=== PATIENT | male | born 1950 | race Caucasian/White ===

== ENCOUNTER 2016-12-06 16:15 | Emergency (ER) | payer MEDICARE ==
[2016-12-06] MEDS ORDERED: ASPIRIN 81 MG TABLET, CHEWABLE PO ONE (17:13)
--- NOTE | 2016-12-06 17:18 | ER Document Report ---
ED Medical Screen (RME) - General TRAVEL OUTSIDE OF THE [place] IN LAST 30 DAYS: No <ALYSE BATRES - Last Filed: 12/06/16 17:12> <JARRETT GUAJARDO - Last Filed: 12/06/16 19:21> - General Chief Complaint: Ankle Swelling Stated Complaint: FOOT SWELLING Time Seen by Provider: 12/06/16 17:07 Notes: Patient is a 66 year old male presenting to the emergency department for bilateral lower extremity edema. 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 Patient noticed his ankle edema on Friday. Patient was evaluated at the urgent care last night and told to come to the emergency department. Patient denies any personal history of CHF but states their is a family history of such on both sides. Patient has a history of bypass surgery in 2009. (ALYSE BATRES) - Related Data Allergies/Adverse Reactions: Penicillins Allergy (Verified 12/06/16 16:18) Past Medical History - Social History Chew tobacco use (# tins/day): No Frequency of alcohol use: None Drug Abuse: None - Past Medical History Cardiac Medical History: Reports: Hx Hypercholesterolemia, Hx Hypertension Renal/ Medical History: Denies: Hx Peritoneal Dialysis Past Surgical History: Reports: Hx Abdominal Surgery - hernia surg, Hx Cardiac Surgery - triple bypass 2009, Hx Tonsillectomy - age 3, Hx Urinary Tract Surgery - prostate surg <ALYSE BATRES - Last Filed: 12/06/16 17:12> Physical Exam <ALYSE BATRES - Last Filed: 12/06/16 17:12> <JARRETT GUAJARDO - Last Filed: 12/06/16 19:21> - Vital signs Vitals: Temp Pulse Resp BP Pulse Ox 98.2 F 74 16 163/73 H 96 12/06/16 16:18 12/06/16 16:18 12/06/16 16:18 12/06/16 16:18 12/06/16 16:18 - Notes Notes: GENERAL: Alert, interacts well. No acute distress. LUNGS: Clear to auscultation bilaterally, no wheezes, rales, or rhonchi. No respiratory distress. HEART: Regular rate and rhythm. No murmurs, gallops, or rubs. EXTREMITIES: Moves all 4 extremities spontaneously. Trace pitting edema at the right ankle, 2+ pitting edema at the left ankle, 1+ pitting edema above the right ankle. NEUROLOGICAL: Alert and oriented x3. Normal speech. (ALYSE BATRES) Course - Laboratory Result Diagrams: 12/06/16 17:35 12/06/16 17:35 <JARRETT GUAJARDO - Last Filed: 12/06/16 19:21> - Vital Signs Vital signs: Temp Pulse Resp BP Pulse Ox 98.2 F 74 16 163/73 H 96 12/06/16 16:18 12/06/16 16:18 12/06/16 16:18 12/06/16 16:18 12/06/16 16:18 - Laboratory Laboratory results interpreted by me: 12/06/16 12/06/16 17:35 17:35 Hgb 13.4 L Hct 37.8 L Sodium 129.7 L Chloride 90 L Glucose 156 H Doctor's Discharge <ALYSE BATRES - Last Filed: 12/06/16 17:12> <JARRETT GUAJARDO - Last Filed: 12/06/16 19:21> - Discharge Referrals: TOY SLAUGHTER MD [Primary Care Provider] - Follow up as needed Scribe Documentation - Scribe Written by Scribe:: Loretta Vogel 12/06/16 17:14 acting as scribe for :: Elvia <ALYSE BATRES - Last Filed: 12/06/16 17:12>
[2016-12-06 17:53] LABS: ABSOLUTE EOSINOPHILS # (AUTO) 0.3 10^3/uL (0.0-0.6); ABSOLUTE LYMPHOCYTES (AUTO) 1.4 10^3/uL (0.5-4.7); ABSOLUTE MONOCYTES (AUTO) 0.6 10^3/uL (0.1-1.4); ABSOLUTE NEUT (AUTO) 5.8 10^3/uL (1.7-8.2); BASOPHILS % (AUTO) 0.3 % (0-2); EOSINOPHILS % (AUTO) 3.4 % (0-6); HEMATOCRIT 37.8 % (37.9-51.0); HEMOGLOBIN 13.4 g/dL (13.5-17.0); HGB HCT DIFFERENCE 2.4; LYMPHOCYTES % (AUTO) 17.8 % (13-45); MEAN CORPUSCULAR HGB CONC 35.4 g/dL (32.0-36.0); MEAN CORPUSCULAR VOLUME 82 fl (80-97); MONOCYTES % (AUTO) 7.1 % (3-13); RED CELL DISTRIBUTION WIDTH 13.4 % (11.5-14.0); SEGMENTED NEUTROPHILS % (AUTO) 71.4 % (42-78); WHITE BLOOD COUNT 8.1 10^3/uL (4.0-10.5)
--- NOTE | 2016-12-06 18:00 | RADIOLOGY REPORT (SQ) ---
EXAM DESCRIPTION: CHEST SINGLE VIEW COMPLETED DATE/TIME: 12/06/2016 5:46 pm REASON FOR STUDY: leg swelling, r/o CHF COMPARISON: None. EXAM PARAMETERS: NUMBER OF VIEWS: One view. TECHNIQUE: Single frontal radiographic view of the chest acquired. RADIATION DOSE: NA LIMITATIONS: None. FINDINGS: LUNGS AND PLEURA: Chronic lung change without consolidation, masses or pneumothorax. No pl eural effusion. MEDIASTINUM AND HILAR STRUCTURES: No masses. Contour normal. HEART AND VASCULAR STRUCTURES: Heart normal in size. Normal vasculature. BONES: No acute findings. HARDWARE: Sternotomy wires. OTHER: No other significant finding. IMPRESSION: NO ACUTE RADIOGRAPHIC FINDING IN THE CHEST. TECHNICAL DOCUMENTATION: JOB ID: [id number]
[2016-12-06 18:05] LABS: PROTHROMBIN TIME 12.6 SEC (11.4-15.4)
[2016-12-06 18:08] LABS: ALANINE AMINOTRANSFERASE 26 U/L (21-72); ALBUMIN 4.7 g/dL (3.5-5.0); ALKALINE PHOSPHATASE 84 U/L (38-126); ANION GAP 13 (5-19); ASPARTATE AMINO TRANSFERASE 18 U/L (17-59); BILIRUBIN,DIRECT 0.3 mg/dL (0.0-0.4); BILIRUBIN,TOTAL 0.7 mg/dL (0.2-1.3); BLOOD UREA NITROGEN 10 mg/dL (7-20); CALCIUM 10.1 mg/dL (8.4-10.2); CARBON DIOXIDE 27 mmol/L (22-30); CHLORIDE 90 mmol/L (98-107); CREATINE KINASE 107 U/L (55-170); CREATININE RESULT 0.88 mg/dL (0.52-1.25); GLUCOSE 156 mg/dL (75-110); POTASSIUM 3.9 mmol/L (3.6-5.0); SODIUM 129.7 mmol/L (137-145); TOTAL PROTEIN 7.4 g/dL (6.3-8.2)
--- NOTE | 2016-12-06 18:13 | ER Document Report ---
ED General - General Chief Complaint: Ankle Swelling Stated Complaint: FOOT SWELLING Time Seen by Provider: 12/06/16 17:07 Mode of Arrival: Ambulatory Information source: Patient Notes: 66-year-old male presents with complaints of 3-4 day duration of bilateral ankle swelling. Patient denies any chest pain shortness breath difficulty breathing. Patient denies a history of congestive heart failure TRAVEL OUTSIDE OF THE [place] IN LAST 30 DAYS: No - HPI Onset: Last week Onset/Duration: Persistent Quality of pain: No pain Severity: Mild Pain Level: Denies Associated symptoms: Leg swelling Exacerbated by: Denies Relieved by: Denies Similar symptoms previously: No Recently seen / treated by doctor: No - Related Data Allergies/Adverse Reactions: Penicillins Allergy (Verified 12/06/16 16:18) Past Medical History - Social History Smoking Status: Never Smoker Cigarette use (# per day): No Chew tobacco use (# tins/day): No Smoking Education Provided: No Frequency of alcohol use: None Drug Abuse: None Family History: Reviewed & Not Pertinent Patient has suicidal ideation: No Patient has homicidal ideation: No - Past Medical History Cardiac Medical History: Reports: Hx Hypercholesterolemia, Hx Hypertension Renal/ Medical History: Denies: Hx Peritoneal Dialysis Past Surgical History: Reports: Hx Abdominal Surgery - hernia surg, Hx Cardiac Surgery - triple bypass 2010, Hx Tonsillectomy - age 3, Hx Urinary Tract Surgery - prostate surg Review of Systems - Review of Systems Notes: REVIEW OF SYSTEMS: CONSTITUTIONAL : Denies fever, chills, or sweats. Denies recent illness. EENT: Denies eye, ear, throat, or mouth pain or symptoms. Denies nasal or sinus congestion or discharge. Denies throat, tongue, or mouth swelling or difficulty swallowing. CARDIOVASCULAR: Bilateral upper extremity edema RESPIRATORY: Denies cough, cold, or chest congestion. Denies shortness of breath, difficulty breathing, or wheezing. GASTROINTESTINAL: Denies abdominal pain or distention. Denies nausea, vomiting , or diarrhea. Denies blood in vomitus, stools, or per rectum. Denies black, tarry stools. Denies constipation. GENITOURINARY: Denies difficulty urinating, painful urination, burning, frequency, blood in urine, or discharge. MUSCULOSKELETAL: Denies back or neck pain or stiffness. Denies joint pain or swelling. SKIN: Denies rash, lesions or sores. HEMATOLOGIC : Denies easy bruising or bleeding. LYMPHATIC: Denies swollen, enlarged glands. NEUROLOGICAL: Denies confusion or altered mental status. Denies passing out or loss of consciousness. Denies dizziness or lightheadedness. Denies headache. Denies weakness or paralysis or loss of use of either side. Denies problems with gait or speech. Denies sensory loss, numbness, or tingling. Denies seizures. PSYCHIATRIC: Denies anxiety or stress. Denies depression, suicidal ideation, or homicidal ideation. ALL OTHER SYSTEMS REVIEWED AND NEGATIVE. Dictation was performed using [employer] recognition software PHYSICAL EXAMINATION: GENERAL: Well-appearing, well-nourished and in no acute distress. HEAD: Atraumatic, normocephalic. EYES: Pupils equal round and reactive to light, extraocular movements intact, sclera anicteric, conjunctiva are normal. ENT: Nares patent, oropharynx clear without exudates. Moist mucous membranes. NECK: Normal range of motion, supple without lymphadenopathy LUNGS: Breath sounds clear to auscultation bilaterally and equal. No wheezes rales or rhonchi. HEART: Regular rate and rhythm without murmurs ABDOMEN: Soft, nontender, nondistended abdomen. No guarding, no rebound. No masses appreciated. Musculoskeletal: Bilateral pitting edema ankles +1 NEUROLOGICAL: Cranial nerves grossly intact. Normal speech, normal gait. Normal sensory, motor exams PSYCH: Normal mood, normal affect. SKIN: Warm, Dry, normal turgor, no rashes or lesions noted. Physical Exam - Vital signs Vitals: Temp Pulse Resp BP Pulse Ox 98.2 F 74 16 163/73 H 96 12/06/16 16:18 12/06/16 16:18 12/06/16 16:18 12/06/16 16:18 12/06/16 16:18 Course - Re-evaluation Re-evalutation: 12/06/16 18:27 Workup pending for possible congestive heart failure patient has bilateral edema very low concern for DVT 12/06/16 19:27 There is no sign of congestive heart failure, patient denies any DVT or PE risk factors. I will discharge with very close follow-up with his own primary care physician After performing a Medical Screening Examination, I estimate there is LOW risk for RUPTURED ESOPHAGUS, PNEUMOTHORAX, PULMONARY EMBOLISM, ACUTE CORONARY SYNDROME, OR THORACIC AORTIC DISSECTION, thus I consider the discharge disposition reasonable. I have reevaluated this patient multiple times and no significant life threatening changes are noted. The patient and I have discussed the diagnosis and risks, and we agree with discharging home with close follow-up. We also discussed returning to the Emergency Department immediately if new or worsening symptoms occur. We have discussed the symptoms which are most concerning (e.g., bloody sputum, worsening pain or shortness of breath) that necessitate immediate return. - Vital Signs Vital signs: Temp Pulse Resp BP Pulse Ox 98.2 F 74 16 163/73 H 96 12/06/16 16:18 12/06/16 16:18 12/06/16 16:18 12/06/16 16:18 12/06/16 16:18 - Laboratory Result Diagrams: 12/06/16 17:35 12/06/16 17:35 Laboratory results interpreted by me: 12/06/16 12/06/16 17:35 17:35 Hgb 13.4 L Hct 37.8 L Sodium 129.7 L Chloride 90 L Glucose 156 H - Diagnostic Test Radiology reviewed: Image reviewed, Reports reviewed Discharge - Discharge Clinical Impression: Ankle edema, bilateral Condition: Stable Disposition: HOME, SELF-CARE Instructions: Edema, Peripheral ([facility]) Referrals: TOY SLAUGHTER MD [Primary Care Provider] - Follow up tomorrow
[2016-12-06 18:20] LABS: CREATINE KINASE MB 3.51 ng/mL (<4.55)
[2016-12-06 18:27] LABS: TROPONIN I < 0.012 ng/mL
[2016-12-06 19:44] VITALS: BP 156/76
--- NOTE | 2016-12-07 00:01 | EKG REPORT ---
SEVERITY:- NORMAL ECG - SINUS RHYTHM LVH : Confirmed by: Prisicla Chung 07-Dec-2016 00:00:24
== END 2016-12-06 19:40 | disposition home or self-care (01) ==
LOC: ER 16:15
DX: R60.0 Localized edema (principal); I10 Essential (primary) hypertension; Z95.1 Presence of aortocoronary bypass graft; Z88.0 Allergy status to penicillin
CPT/HCPCS: 93005; 99284; 36415; 82553; 82550; 85025; 85610; 80053; 84484; 83880; 71010; 93010; A9270

== ENCOUNTER 2018-12-30 08:22 | Inpatient (IN) | payer MEDICARE ==
[2018-12-30 08:48] LABS: INTERNATIONAL RATION (INR) 1.09; PROTHROMBIN TIME 14.1 SEC (11.4-15.4)
[2018-12-30 08:52] LABS: HEMATOCRIT 35.5 % (37.9-51.0); HEMOGLOBIN 11.9 g/dL (13.5-17.0); MEAN CORPUSCULAR HEMOGLOBIN 28.1 pg (27.0-33.4); MEAN CORPUSCULAR HGB CONC 33.4 g/dL (32.0-36.0); MEAN CORPUSCULAR VOLUME 84 fl (80-97); PLATELET COUNT 212 10^3/uL (150-450); RED BLOOD COUNT 4.22 10^6/uL (4.35-5.55); RED CELL DISTRIBUTION WIDTH 14.2 % (11.5-14.0); WHITE BLOOD COUNT 12.9 10^3/uL (4.0-10.5)
[2018-12-30 09:00] LABS: VENOUS BLOOD BASE EXCESS -3.7 mmol/L; VENOUS BLOOD HCO3 21.7 mmol/L (20-32); VENOUS BLOOD PCO2 40.7 mmHg (35-63); VENOUS BLOOD PH 7.35 (7.30-7.42)
[2018-12-30 09:05] LABS: ALBUMIN 4.1 g/dL (3.5-5.0); ALKALINE PHOSPHATASE 76 U/L (38-126); ANION GAP 10 (5-19); ASPARTATE AMINO TRANSFERASE 61 U/L (17-59); BILIRUBIN,DIRECT 0.2 mg/dL (0.0-0.4); BLOOD UREA NITROGEN 15 mg/dL (7-20); CALCIUM 9.5 mg/dL (8.4-10.2); CARBON DIOXIDE 24 mmol/L (22-30); CHLORIDE 106 mmol/L (98-107); CREATINE KINASE 292 U/L (55-170); GLUCOSE 234 mg/dL (75-110); POTASSIUM 4.3 mmol/L (3.6-5.0)
--- NOTE | 2018-12-30 09:10 | RADIOLOGY REPORT (SQ) ---
EXAM DESCRIPTION: CHEST SINGLE VIEW COMPLETED DATE/TIME: 12/30/2018 8:56 am REASON FOR STUDY: sob COMPARISON: 12/06/2016 EXAM PARAMETERS: NUMBER OF VIEWS: One view. TECHNIQUE: Single frontal radiographic view of the chest acquired. RADIATION DOSE: NA LIMITATIONS: None. FINDINGS: LUNGS AND PLEURA: Chronic scarring or atelectasis in the left mid-lower lung zones. Slig ht stable bibasilar scarring or atelectasis on the right. No pneumothorax. No pleural effusion on t he right. The left costophrenic angle is partially obscured by overlying soft tissue density. MEDIASTINUM AND HILAR STRUCTURES: No masses. Contour normal. HEART AND VASCULAR STRUCTURES: Heart normal in size. Normal vasculature. BONES: The osseous structures are stable in appearance. HARDWARE: Prior anterior median sternotomy. OTHER: No other significant finding. IMPRESSION: 1. No significant interval changes since the prior examination dated 12/06/2016. Chronic mild changes in the lungs. TECHNICAL DOCUMENTATION: JOB ID: [id number] [employer]- All Rights Reserved Reading location - IP/workstation name: [email or web address]
[2018-12-30 09:18] LABS: CREATINE KINASE MB 3.92 ng/mL (<4.55)
[2018-12-30 09:20] LABS: TROPONIN I < 0.012 ng/mL
[2018-12-30 09:30] LABS: ABSOLUTE LYMPHOCYTES# (MANUAL) 0.8 10^3/uL (0.5-4.7); ABSOLUTE MONOCYTES # (MANUAL) 0.6 10^3/uL (0.1-1.4); BAND NEUTROPHILS % (MANUAL) 1 % (3-5); BASOPHILS % (MANUAL) 0 % (0-2); EOSINOPHILS % (MANUAL) 1 % (0-6); LYMPHOCYTES % (MANUAL) 6 % (13-45); MONOCYTES % (MANUAL) 5 % (3-13); NUCLEATED RED BLOOD CELLS 1 /100 WBC (0); PLATELET COMMENT ADEQUATE; RBC MORPHOLOGY COMMENT NORMO-CYTIC/CHROMIC; SEGMENTED NEUTROPHILS % (MAN) 87 % (42-78); TOTAL CELLS COUNTED 100
[2018-12-30] MEDS ORDERED: FUROSEMIDE INJ/PF 40 MG/4 ML SDV IV ONE (10:51)
[2018-12-30] MEDS ORDERED: ACETAMINOPHEN 325 MG TABLET PO ONE (10:53)
--- NOTE | 2018-12-30 11:41 | ER Document Report ---
ED General - General Chief Complaint: Breathing Difficulty Stated Complaint: TROUBLE BREATHING Time Seen by Provider: 12/30/18 08:41 Primary Care Provider: NIKOLE QUIROGA PA-C [Primary Care Provider] - Follow up as needed Mode of Arrival: Medic Information source: Patient TRAVEL OUTSIDE OF THE [place] IN LAST 30 DAYS: No - HPI Notes: Patient states that he was trying to work on his car this morning when he became very short of breath. Patient states it was severe and constant. It was worse with exertion and better with rest. There is no radiation symptoms. Patient is recently had a mild nonproductive cough. Patient denies fevers. Patient states he has no history of congestive heart failure. He states he did recently have pneumonia but he has finished antibiotics for this. He denies any pain. - Related Data Allergies/Adverse Reactions: Penicillins Allergy (Verified 12/30/18 08:32) Past Medical History - General Information source: Patient - Social History Smoking Status: Never Smoker Chew tobacco use (# tins/day): No Frequency of alcohol use: None Drug Abuse: None Family History: Reviewed & Not Pertinent Patient has suicidal ideation: No Patient has homicidal ideation: No - Past Medical History Cardiac Medical History: Reports: Hx Hypercholesterolemia, Hx Hypertension Renal/ Medical History: Denies: Hx Peritoneal Dialysis Past Surgical History: Reports: Hx Abdominal Surgery - hernia surg, Hx Cardiac Surgery - triple bypass 2009, Hx Tonsillectomy - age 3, Hx Urinary Tract Surgery - prostate surg Review of Systems - Review of Systems Constitutional: Malaise, Weakness Cardiovascular: denies: Chest pain, Palpitations Respiratory: Cough, Short of breath Gastrointestinal: denies: Diarrhea, Vomiting -: Yes All other systems reviewed and negative Physical Exam - Vital signs Vitals: Pulse Ox 99 12/30/18 08:27 Interpretation: Hypertensive, Tachycardic - General General appearance: Alert, Anxious In distress: Moderate - HEENT Head: Normocephalic, Atraumatic Eyes: Normal Pupils: PERRL - Respiratory Respiratory status: No respiratory distress Chest status: Nontender Breath sounds: Wheezing, Other - Crackles bilaterally Chest palpation: Normal - Cardiovascular Rhythm: Irregularly irregular, Tachycardia Heart sounds: Normal auscultation Murmur: No - Abdominal Inspection: Normal Distension: No distension Bowel sounds: Normal Tenderness: Nontender Organomegaly: No organomegaly - Back Back: Normal, Nontender - Extremities General upper extremity: Normal inspection, Nontender, Normal color, Normal ROM, Normal temperature General lower extremity: Normal inspection, Nontender, Normal color, Normal ROM, Normal temperature, Normal weight bearing. No: Klever's sign - Neurological Neuro grossly intact: Yes Cognition: Normal Orientation: AAOx4 [place] Coma Scale Eye Opening: Spontaneous [place] Coma Scale Verbal: Oriented [place] Coma Scale Motor: Obeys Commands [place] Coma Scale Total: 15 Speech: Normal Motor strength normal: LUE, RUE, LLE, RLE Sensory: Normal - Psychological Associated symptoms: Normal affect, Normal mood - Skin Skin Temperature: Warm Skin Moisture: Dry Skin Color: Normal Course - Re-evaluation Re-evalutation: 12/30/18 11:38 Patient reassessed just now. I gave patient a trial off of BiPAP and on nasal cannula. Patient became tachypneic and had some grunting respirations. His oxygen saturation remained about 94% but he was obviously labored. I have placed him back on BiPAP and patient looks much more comfortable. He has had a volumes of approximately 6-700. He continues to remain in atrial fibrillation but the rate is controlled. He does have apparent new onset CHF so treated with Lasix. His BNP is elevated for the first time on any lab values here. X-ray does not show infiltrate or edema. I did a rectal temperature which was 99.6. He does have an increased white blood cell count of 12,000 but I believe this is just due to the stress of being short of breath. I do not see evidence that he has an infectious process at this time. - Vital Signs Vital signs: Temp Pulse Resp BP Pulse Ox 99.6 F 21 H 161/82 H 96 12/30/18 11:30 12/30/18 11:01 12/30/18 11:01 12/30/18 11:01 - Laboratory Result Diagrams: 12/30/18 08:30 12/30/18 08:30 Laboratory results interpreted by me: 12/30/18 12/30/18 12/30/18 08:30 08:30 08:30 WBC 12.9 H RBC 4.22 L Hgb 11.9 L Hct 35.5 L RDW 14.2 H Seg Neuts % (Manual) 87 H Band Neutrophils % 1 L Lymphocytes % (Manual) 6 L Abs Neuts (Manual) 11.4 H Glucose 234 H AST 61 H Creatine Kinase 292 H NT-Pro-B Natriuret Pep 2840 H - Diagnostic Test Radiology reviewed: Image reviewed, Reports reviewed - EKG Interpretation by Me EKG shows normal: abnormal: Sinus rhythm Rate: Tachycardia Rhythm: A.Fib [place]/QRS: No: Right axis deviation, Left axis deviation Discharge - Discharge Clinical Impression: New onset of congestive heart failure Atrial fibrillation Qualifiers: Atrial fibrillation type: paroxysmal Qualified Code(s): I48.0 - Paroxysmal atrial fibrillation Condition: Fair Disposition: ADMITTED INPATIENT Admitting Provider: Nhan (Hospitalist) Unit Admitted: Telemetry Referrals: NIKOLE QUIROGA PA-C [Primary Care Provider] - Follow up as needed
[2018-12-30] MEDS ORDERED: IPRATROPIUM/ALBUTEROL 0.5-2.5 MG/3 ML AMPUL NEB PRN (11:59)
--- NOTE | 2018-12-30 12:16 | EKG REPORT ---
SEVERITY:- ABNORMAL ECG - ATRIAL FIBRILLATION, V-RATE 79-[address] CHANGES. [facility] : Confirmed by: Luis Ennis MD 30-Dec-2018 12:15:34
[2018-12-30] MEDS ORDERED: DILTIAZEM HCL INJ 25 MG/5 ML VIAL IV ONE (13:30)
[2018-12-30] MEDS: DILTIAZEM HCL/D5W 125 MG/125 ML RTUINJ IV PRN (13:51)
[2018-12-30] MEDS ORDERED: ALBUTEROL SULFATE 0.083% NEB 2.5 MG/3 ML AMPUL NEB PRN (16:12)
[2018-12-30] MEDS ORDERED: (PENDING PHARMACY ID) (Alendronate Sodium [Fosamax 70 Mg Tablet] 1 TAB) PO SCH (16:15)
--- NOTE | 2018-12-30 16:31 | PDOC H&P ---
History of Present Illness Admission Date/PCP: 12/30/18 12:06 NIKOLE QUIROGA PA-C Patient complains of: shortness of breath History of Present Illness: TOY KHAN is a 68 year old male who has history of coronary artery disease status post CABG in 2009. Patient presents the emergency room due to acute onset of progressive shortness of breath started about 4 to 5 days ago. Today, I believe he was trying to air the tires of his car when he felt severely short of breath and came to the emergency room. He also complains of cough and wheezing. He denies fever or chest pain. In the emergency room he was in rapid A. fib. His chest x-ray suspicious for left lower lobe pneumonia. He was given Lasix in the emergency room with some improvement. Past Medical History Cardiac Medical History: Reports: Hyperlipidema, Hypertension Past Surgical History Past Surgical History: Reports: Tonsillectomy - age 3 Social History Smoking Status: Never Smoker Frequency of Alcohol Use: None Hx Recreational Drug Use: No - Advance Directive Resuscitation Status: Full Code Family History Family History: Reviewed & Not Pertinent Parental Family History Reviewed: Yes Children Family History Reviewed: Yes Sibling(s) Family History Reviewed.: Yes Medication/Allergy Home Medications: Alendronate Sodium [Fosamax 70 mg Tablet] 1 tab PO .ONCE WEEKLY 12/30/18 Amlodipine Besylate [Norvasc 10 mg Tablet] 10 mg PO DAILY 12/30/18 Atorvastatin Calcium [Lipitor 40 mg Tablet] 40 mg PO DAILY 12/30/18 Losartan/Hydrochlorothiazide [Losartan-Hctz 100-25 mg Tab] 1 each PO DAILY 12/30/18 Allergies/Adverse Reactions: Penicillins Allergy (Verified 12/30/18 08:32) Review of Systems All systems: reviewed and no additional remarkable complaints except as stated Physical Exam Vital Signs: Temp Pulse Resp BP Pulse Ox 99.6 F 74 20 164/71 H 98 12/30/18 11:30 12/30/18 15:02 12/30/18 13:56 12/30/18 15:02 12/30/18 13:56 Intake & Output 12/29/18 12/30/18 12/31/18 06:59 06:59 06:59 Weight 200 lb Exam: Patient is no acute distress Alert oriented to time place person No anxiety or depression Head: atraumatic normocephalic Pupils: are equal reactive Neck: is supple and trachea is central no lymphadenopathy No pharyngeal erythema or exudates Heart: Rapid A. fib Lungs: Tachypnea, bilateral wheezing and rhonchi Abdomen: nontender nondistended Neurological exam: unremarkable Musculoskeletal: No joint swelling or effusion chronic lower back pain and tenderness No suicidal or homicidal ideation Results Laboratory Results: 12/30/18 08:30 12/30/18 08:30 12/30/18 12/30/18 12/30/18 08:30 08:30 08:30 WBC 12.9 H RBC 4.22 L Hgb 11.9 L Hct 35.5 L MCV 84 MCH 28.1 MCHC 33.4 RDW 14.2 H Plt Count 212 Seg Neutrophils % Not Reportable VBG pH 7.35 VBG pCO2 40.7 VBG HCO3 21.7 VBG Base Excess -3.7 Sodium 140.3 Potassium 4.3 Chloride 106 Carbon Dioxide 24 Anion Gap 10 BUN 15 Creatinine 1.17 Est GFR ( Amer) > 60 Glucose 234 H Lactic Acid Calcium 9.5 Total Bilirubin 1.0 AST 61 H Alkaline Phosphatase 76 Total Protein 7.0 Albumin 4.1 12/30/18 09:00 WBC RBC Hgb Hct MCV MCH MCHC RDW Plt Count Seg Neutrophils % VBG pH VBG pCO2 VBG HCO3 VBG Base Excess Sodium Potassium Chloride Carbon Dioxide Anion Gap BUN Creatinine Est GFR ( Amer) Glucose Lactic Acid 1.9 Calcium Total Bilirubin AST Alkaline Phosphatase Total Protein Albumin 12/30/18 12/30/18 12/30/18 08:30 08:30 08:30 Creatine Kinase 292 H CK-MB (CK-2) 3.92 Troponin I < 0.012 NT-Pro-B Natriuret Pep 2840 H 12/30/18 14:34 Creatine Kinase CK-MB (CK-2) Troponin I 0.021 NT-Pro-B Natriuret Pep Impressions: Chest X-Ray 12/30/18 08:42 IMPRESSION: 1. No significant interval changes since the prior examination dated 12/06/2016. Chronic mild changes in the lungs. Assessment and Plan - Diagnosis (1) Atrial fibrillation Qualifiers: Atrial fibrillation type: paroxysmal Qualified Code(s): I48.0 - Paroxysmal atrial fibrillation Is this a current diagnosis for this admission?: Yes Plan: Continue Cardizem drip. Consult cardiology. Check echocardiogram. Check magnesium and TSH. Check serial troponin. We will start heparin drip. [id number] (2) Pneumonia Is this a current diagnosis for this admission?: Yes Plan: Start IV ceftriaxone and azithromycin empirically. We will get a CT scan of the chest. Monitor cultures. Scheduled DuoNeb and albuterol as needed. (3) Coronary artery disease Is this a current diagnosis for this admission?: Yes Plan: Continue home medications (4) Hypertension Is this a current diagnosis for this admission?: Yes Plan: Continue home medications. Monitor blood pressure (5) Dyslipidemia Is this a current diagnosis for this admission?: Yes Plan: Continue statin treatment (6) History of prostate cancer Is this a current diagnosis for this admission?: Yes Plan: Status post prostatectomy 2008
[2018-12-30] MEDS ORDERED: HEPARIN SODIUM,PORCINE/D5W 25,000 UNIT/250 ML RTUINJ IV PRN (16:32)
[2018-12-30] MEDS ORDERED: HEPARIN SOD (PORCINE) 1,000 UNIT/ML 10 ML VIAL IV PRN (17:00)
[2018-12-30 17:01] LABS: ABSOLUTE EOSINOPHILS # (AUTO) 0.1 10^3/uL (0.0-0.6); ABSOLUTE LYMPHOCYTES (AUTO) 0.7 10^3/uL (0.5-4.7); ABSOLUTE MONOCYTES (AUTO) 0.8 10^3/uL (0.1-1.4); ABSOLUTE NEUT (AUTO) 8.6 10^3/uL (1.7-8.2); BASOPHILS % (AUTO) 0.3 % (0-2); EOSINOPHILS % (AUTO) 1.5 % (0-6); HEMATOCRIT 35.2 % (37.9-51.0); HEMOGLOBIN 11.8 g/dL (13.5-17.0); LYMPHOCYTES % (AUTO) 6.7 % (13-45); MEAN CORPUSCULAR HEMOGLOBIN 28.1 pg (27.0-33.4); MEAN CORPUSCULAR HGB CONC 33.6 g/dL (32.0-36.0); MEAN CORPUSCULAR VOLUME 84 fl (80-97); MONOCYTES % (AUTO) 7.4 % (3-13); PLATELET COUNT 210 10^3/uL (150-450); RED BLOOD COUNT 4.21 10^6/uL (4.35-5.55); RED CELL DISTRIBUTION WIDTH 14.5 % (11.5-14.0); SEGMENTED NEUTROPHILS % (AUTO) 84.1 % (42-78); TOTAL CELLS COUNTED % (AUTO) 100 %; WHITE BLOOD COUNT 10.2 10^3/uL (4.0-10.5)
--- NOTE | 2018-12-30 17:52 | RADIOLOGY REPORT (SQ) ---
EXAM DESCRIPTION: CT CHEST WITHOUT COMPLETED DATE/TIME: 12/30/2018 5:42 pm REASON FOR STUDY: pneumonia COMPARISON: Chest radiograph 12/30/2018 TECHNIQUE: CT scan performed of the chest without intravenous contrast. Images reviewed with lung, soft tissue and bone windows. Reconstructed coronal and sagittal MPR images reviewed. All images st ored on PACS. All CT scanners at this facility use dose modulation, iterative reconstruction, and/or weight based d osing when appropriate to reduce radiation dose to as low as reasonably achievable (ALARA). [facility]: Dose Right [facility]: CareDose [facility]: Dose Right [facility]: Teradose 4D [facility]: [employer] RADIATION DOSE: mGy. LIMITATIONS: No technical limitations. FINDINGS: LUNGS AND PLEURA: Minimal patchy opacities in the lungs left greater than right. No effus ions. No pneumothorax. HILAR AND MEDIASTINAL STRUCTURES: No identified masses or abnormal nodes. No obvious aneurysm. HEART AND VASCULAR STRUCTURES: No aneurysm. No pericardial effusion. UPPER ABDOMEN: No significant findings. Limited exam. THYROID AND OTHER SOFT TISSUES: No masses. No adenopathy. BONES: Sternal wires. HARDWARE: None in the chest. OTHER: No other significant findings. IMPRESSION: Minimal patchy pneumonitis. TECHNICAL DOCUMENTATION: JOB ID: [id number] Quality ID # [id number]: Final reports with documentation of one or more dose reduction techniques (e.g., Au tomated exposure control, adjustment of the mA and/or kV according to patient size, use of iterative reconstruction technique) 2010 [employer]- All Rights Reserved Reading location - IP/workstation name: [email or web address]
[2018-12-30 17:55] LABS: INTERNATIONAL RATION (INR) 1.17
[2018-12-30 17:56] LABS: PARTIAL THROMBOPLASTIN TIME 29.8 SEC (23.5-35.8)
[2018-12-30] MEDS: HEPARIN SODIUM,PORCINE/D5W 25,000 UNIT/250 ML RTUINJ IV PRN (18:07)
[2018-12-30] MEDS: HEPARIN SOD (PORCINE) 1,000 UNIT/ML 10 ML VIAL IV PRN (18:07)
[2018-12-30] MEDS: CEFTRIAXONE 1 GM/D5W RTU 1 GM/50 ML RTUPB IV SCH (18:10)
[2018-12-30] MEDS: IPRATROPIUM/ALBUTEROL 0.5-2.5 MG/3 ML AMPUL NEB SCH (20:14)
[2018-12-30] MEDS: AZITHROMYCIN 500 MG in DEXTROSE 5%-WATER 250 ML IV SCH (21:22)
[2018-12-30] MEDS: ACETAMINOPHEN 325 MG TABLET PO PRN (21:23)
[2018-12-30] MEDS: GUAIFENESIN 600 MG TABLET.SA PO SCH (21:23)
[2018-12-30] MEDS: ATORVASTATIN CALCIUM 40 MG TABLET PO SCH (21:23)
[2018-12-31] MEDS: HEPARIN SOD (PORCINE) 1,000 UNIT/ML 10 ML VIAL IV PRN (02:56)
[2018-12-31 05:13] LABS: HEMATOCRIT 32.5 % (37.9-51.0); MEAN CORPUSCULAR HEMOGLOBIN 28.6 pg (27.0-33.4); MEAN CORPUSCULAR HGB CONC 33.7 g/dL (32.0-36.0); MEAN CORPUSCULAR VOLUME 85 fl (80-97); PLATELET COUNT 180 10^3/uL (150-450); RED BLOOD COUNT 3.83 10^6/uL (4.35-5.55); RED CELL DISTRIBUTION WIDTH 14.6 % (11.5-14.0); WHITE BLOOD COUNT 7.4 10^3/uL (4.0-10.5)
[2018-12-31 05:38] LABS: ANION GAP 8 (5-19); BLOOD UREA NITROGEN 18 mg/dL (7-20); CALCIUM 9.1 mg/dL (8.4-10.2); CARBON DIOXIDE 26 mmol/L (22-30); CHLORIDE 104 mmol/L (98-107); GLUCOSE 124 mg/dL (75-110); POTASSIUM 4.1 mmol/L (3.6-5.0)
[2018-12-31] MEDS: DILTIAZEM HCL/D5W 125 MG/125 ML RTUINJ IV PRN (06:30)
[2018-12-31] MEDS: IPRATROPIUM/ALBUTEROL 0.5-2.5 MG/3 ML AMPUL NEB SCH ×4 (08:31→20:02)
[2018-12-31] MEDS: GUAIFENESIN 600 MG TABLET.SA PO SCH ×2 (09:18→21:44)
[2018-12-31] MEDS: AMLODIPINE BESYLATE 10 MG TABLET PO SCH (09:18)
[2018-12-31] MEDS: LOSARTAN POTASSIUM 50 MG TABLET PO SCH (09:18)
[2018-12-31] MEDS: HYDROCHLOROTHIAZIDE 25 MG TABLET PO SCH (09:18)
[2018-12-31 09:51] LABS: INTERNATIONAL RATION (INR) 1.17; PROTHROMBIN TIME 14.9 SEC (11.4-15.4)
[2018-12-31 09:52] LABS: PARTIAL THROMBOPLASTIN TIME 63.6 SEC (23.5-35.8)
[2018-12-31] MEDS ORDERED: AZITHROMYCIN INJ 500 MG VIAL IV SCH (10:00)
[2018-12-31] MEDS ORDERED: (PENDING PHARMACY ID) (Losartan/Hydrochlorothiazide [Losartan-Hctz 100-25 Mg Tab] 1 EACH) PO SCH (10:00)
[2018-12-31] MEDS: HEPARIN SODIUM,PORCINE/D5W 25,000 UNIT/250 ML RTUINJ IV PRN (12:44)
--- NOTE | 2018-12-31 12:54 | PDOC PROGRESS REPORT ---
Subjective Progress Note for:: 12/31/18 Subjective:: Patient was seen and examined. He is feeling better today. His oxygen requirements decreased to 2 L. He is afebrile and his white count normalized. CT scan shows pneumonitis which is minimal. Troponins are negative. He is on Cardizem drip still and has heart rate significantly improved. Reason For Visit: SHORTNESS OF BREATH Physical Exam Vital Signs: Temp Pulse Resp BP Pulse Ox 97.7 F 84 18 149/67 H 94 12/31/18 11:17 12/31/18 12:00 12/31/18 12:00 12/31/18 12:00 12/31/18 12:00 Intake & Output 12/30/18 12/31/18 01/01/19 06:59 06:59 06:59 Intake Total 580 426 Output Total 425 600 Balance 155 -174 Weight 208 lb 15.971 oz Exam: Patient is no acute distress Alert oriented to time place person No anxiety or depression Head: atraumatic normocephalic Pupils: are equal reactive Neck: is supple and trachea is central no lymphadenopathy No pharyngeal erythema or exudates Heart: A. fib Lungs: bilateral wheezing and rhonchi Abdomen: nontender nondistended Neurological exam: unremarkable Musculoskeletal: No joint swelling or effusion chronic lower back pain and tenderness No suicidal or homicidal ideation Results Laboratory Results: 12/31/18 04:37 12/31/18 04:37 12/30/18 12/30/18 12/30/18 16:41 16:41 16:41 WBC 10.2 RBC 4.21 L Hgb 11.8 L Hct 35.2 L MCV 84 MCH 28.1 MCHC 33.6 RDW 14.5 H Plt Count 210 Seg Neutrophils % 84.1 H Sodium Potassium Chloride Carbon Dioxide Anion Gap BUN Creatinine Est GFR ( Amer) Glucose Calcium Magnesium 1.9 TSH 4.74 H 12/31/18 12/31/18 04:37 04:37 WBC 7.4 RBC 3.83 L Hgb 11.0 L Hct 32.5 L MCV 85 MCH 28.6 MCHC 33.7 RDW 14.6 H Plt Count 180 Seg Neutrophils % Sodium 138.4 Potassium 4.1 Chloride 104 Carbon Dioxide 26 Anion Gap 8 BUN 18 Creatinine 1.19 Est GFR ( Amer) > 60 Glucose 124 H Calcium 9.1 Magnesium TSH 12/30/18 12/30/18 12/30/18 08:30 08:30 08:30 Creatine Kinase 292 H CK-MB (CK-2) 3.92 Troponin I < 0.012 NT-Pro-B Natriuret Pep 2840 H 12/30/18 12/30/18 12/30/18 14:34 20:41 23:44 Creatine Kinase CK-MB (CK-2) Troponin I 0.021 0.014 0.013 NT-Pro-B Natriuret Pep Impressions: Chest CT 12/30/18 00:00 IMPRESSION: Minimal patchy pneumonitis. Chest X-Ray 12/30/18 08:42 IMPRESSION: 1. No significant interval changes since the prior examination dated 12/06/2016. Chronic mild changes in the lungs. Assessment and Plan - Diagnosis (1) Atrial fibrillation Qualifiers: Atrial fibrillation type: paroxysmal Qualified Code(s): I48.0 - Paroxysmal atrial fibrillation Is this a current diagnosis for this admission?: Yes Plan: Continue Cardizem drip. Consulted cardiology. Follow-up echocardiogram. magnesium 1.9 and TSH 4.74. Negative serial troponin. Continue heparin drip for now. [id number] (2) Pneumonia Is this a current diagnosis for this admission?: Yes Plan: Continue IV ceftriaxone and azithromycin empirically. Reviewed CT scan of the chest. Monitor cultures. Continue scheduled DuoNeb and albuterol as needed. (3) Coronary artery disease Is this a current diagnosis for this admission?: Yes Plan: Continue home medications (4) Hypertension Is this a current diagnosis for this admission?: Yes Plan: Continue home medications. Monitor blood pressure (5) Dyslipidemia Is this a current diagnosis for this admission?: Yes Plan: Continue statin treatment (6) History of prostate cancer Is this a current diagnosis for this admission?: Yes Plan: Status post prostatectomy 2008
[2018-12-31] MEDS: PREDNISONE 20 MG TABLET PO SCH (13:26)
--- NOTE | 2018-12-31 15:25 | XCELERA REPORT ---
[address] [address] Transthoracic Echocardiogram Report Name: TOY KHAN Age: 68 yrs Gender: Male : 1950 Patient Status: Inpatient Patient Location: [address] [place], [place] [address] Study Date: 12/30/2018 07:00 PM Height: 73 in Weight: 200 lb BSA: 2.2 m2 Procedure: A two-dimensional transthoracic echocardiogram with color flow and Doppler was performed. The study was technically limited with all images being suboptimal in quality. Reason For Study: chf Ordering Physician: GURINDER GAY Performed By: Danica Don Interpretation Summary Note the study was repeated , as first study was sub-optimal. There is normal left ventricular wall thickness. LV EF is > thn 60% Left ventricular systolic function is normal. Doppler measurements suggest normal left ventricular diastolic function The left ventricular wall motion is normal. There is no thrombus. No ASSD ,VSD ,or PFO seen. The right ventricle is mild to moderately dilated. The right ventricle is not well visualized secondary to technical limitations The right atrium is mild to moderately dilated. The left atrium is moderately dilated. There is mild mitral annular calcification. There is no evidence of mitral valve prolapse. There is no vegetation seen on the mitral valve. There is no mitral valve stenosis. There is a moderate amount of mitral regurgitation There is no aortic valvular vegetation. There is no aortic valve stenosis There is aortic sclerosis without aortic stenosis. There is no LVOT obstruction. There is a mild amount of aortic regurgitation There is no tricuspid stenosis. There is moderate to severe pulmonary hypertension by echo RVSP is 57 to 62 mm of Hg , with RA mean of 15 to 20. There is no pulmonic valvular stenosis. There is a trace amount of pulmonic regurgitation The aortic root is normal size. The inferior vena cava appeared dilated and decreased < 50% with respiration (RAP 15-20 mmHg) There is no pericardial effusion. Note the study was repeated , as first study was sub-optimal. MMode/2D Measurements & Calculations RVDd: 4.2 cm LVIDd: 5.1 cm FS: 35.1 % Ao root diam: 2.9 cm IVSd: 1.1 cm LVIDs: 3.3 cm EDV(Teich): 124.4 ml Ao root area: 6.5 cm2 LVPWd: 1.1 cm ESV(Teich): 44.7 ml LA dimension: 4.2 cm EF(Teich): 64.1 % Doppler Measurements & Calculations MV E max macy: MV P1/2t max macy: Ao V2 max: AI max macy: 119.0 cm/sec 135.2 cm/sec 157.8 cm/sec 313.3 cm/sec MV A max macy: MV P1/2t: 68.0 msec Ao max PG: AI max P.5 cm/sec MVA(P1/2t): 3.2 cm2 10.0 mmHg 39.7 mmHg MV E/A: 2.1 MV dec slope: AI dec slope: 191.2 cm/sec2 582.0 cm/sec2 AI P1/2t: MV dec time: 479.8 msec 0.19 sec LV V1 max PG: PA V2 max: PI end-d macy: TR max macy: 3.9 mmHg 111.9 cm/sec 119.4 cm/sec 276.9 cm/sec LV V1 max: PA max P.1 mmHg TR max P.0 cm/sec 30.7 mmHg AV P1/2t-pr_phl: MV P1/2t-pr_phl: 479.1 msec 45.3 msec Left Ventricle The left ventricle is normal in size. There is normal left ventricular wall thickness. LV EF is > thn 60%. Left ventricular systolic function is normal. Doppler measurements suggest normal left ventricular diastolic function. The left ventricular wall motion is normal. There is no thrombus. No ASSD ,VSD ,or PFO seen. Right Ventricle The right ventricle is mild to moderately dilated. The right ventricle is not well visualized secondary to technical limitations. Atria The right atrium is mild to moderately dilated. The left atrium is moderately dilated. Mitral Valve There is mild mitral annular calcification. There is no evidence of mitral valve prolapse. There is no vegetation seen on the mitral valve. There is no mitral valve stenosis. There is a moderate amount of mitral regurgitation. Aortic Valve There is no aortic valvular vegetation. There is no aortic valve stenosis. There is aortic sclerosis without aortic stenosis. There is no LVOT obstruction. There is a mild amount of aortic regurgitation. Tricuspid Valve There is no tricuspid stenosis. There is a mild to moderate amount of tricuspid regurgitation. There is moderate to severe pulmonary hypertension by echo. RVSP is 57 to 62 mm of Hg , with RA mean of 15 to 20. Pulmonic Valve There is no pulmonic valvular stenosis. There is a trace amount of pulmonic regurgitation. Great Vessels The aortic root is normal size. The inferior vena cava appeared dilated and decreased < 50% with respiration (RAP 15-20 mmHg). Effusions There is no pericardial effusion. : GURINDER GAY Lakshmi
[2018-12-31] MEDS: ACETAMINOPHEN 325 MG TABLET PO PRN (15:26)
[2018-12-31] MEDS: CEFTRIAXONE 1 GM/D5W RTU 1 GM/50 ML RTUPB IV SCH (17:11)
--- NOTE | 2018-12-31 20:48 | PDOC CONSULTATION ---
Consultation-Blank Consultation: CARDIOLOGY CONSULTATION by Dr. Mandy Olmos patient seen at 4 :30 PM. 60 minutes spent on this patient with more than 50% time spent in direct patient care. REASON FOR CONSULTATION: Patient with history of coronary artery disease coronary, history of coronary bypass graft surgery admitted with atrial fibrill ation with rapid ventricular response. For cardiac management. CONSULT REQUESTING PHYSICIAN: Dr. Carlos zuni hospitalist physician group. 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 He has a 4 to 5 days prior to admission history of cough productive of yellow sputum with wheezing and shortness of breath and rapid palpitations. He denies any PND orthopnea and no anginal symptoms. In the emergency room he was found to be in atrial fibrillation with rapid ventricular response, and also had patchy pneumonitis bilaterally. He was started on full dose IV heparin infusion and IV Cardizem drip. At present the patient still in atrial fibrillation but with a controlled ventricular response. The patient recollects that after his coronary bypass graft surgery in 2009 he had a postoperative the atrial fibrillation for a few months. Subsequently that resolved and he has not had any clinical recurrence of atrial fibrillation. The patient denies any syncope. The patient has no history of ID or anginal symptoms. At present the patient states he feels slightly better but he continued to wheeze. He is able to lie down flat in bed. The monitor shows no ventricular arrhythmias. PAST MEDICAL HISTORY: History of coronary artery disease. No prior history of ID, but states he had three-vessel bypass in [facility] in 2009. He has history of hyperlipidemia. 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 He has no history of sleep apnea. He has no history of diabetes mellitus. This is the second occurrence of atrial fibrillation in this patient. He has no history of TIA CVA.. He has no history of headaches migraines or seizures. No history of anxiety or depression. No history of diabetes mellitus or thyroid disease. No history of chronic kidney disease. PAST SURGICAL HISTORY: History of coronary bypass graft surgery in 2009. History of tonsillectomy. FAMILY HISTORY: Is positive coronary artery disease and hypertension. SOCIAL HISTORY: The patient has never smoked he has no history of EtOH abuse. There is no history of street drug abuse. RESUSCITATION STATUS: The patient is a full code. His is his surrogate healthcare decision maker. REVIEW SYSTEMS:: Constitutional denies any fever chills or rigors. HEAD: Denies headaches or head injury. EYES: No history of amblyopia diplopia. No history of amaurosis fugax. EARS: No history of tinnitus. No history of hearing loss. No history of vertigo. NOSE: No history of nosebleeds. No history of nasal polyps. No history of hayfever. MOUTH: No history of altered taste sensation. No history of ulcers in the mouth. THROAT: No history of odynophagia or dysphagia. No recurrent sore throats. SKIN: No history of psoriasis or skin cancer. No history of pruritus. No history of yellowish discoloration of the skin. NECK: No history of neck pain. No history of neck swelling. No goiter. 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 No history of sleep apnea. Recent symptoms of acute exacerbation of COPD but chest x-ray shows an CT scan without contrast shows bilateral patchy pneumonitis. He has no history of sleep apnea. No history of pulmonary embolism. No history of hemoptysis. No history of pleuritic chest pain. HEART: This is a second episode of atrial fibrillation. History of palpitations present. No history of PND orthopnea or leg edema. No history of prior congestive heart failure. History of coronary artery disease, denies past history of ID. History of coronary bypass graft surgery, and no anginal symptoms after his CABG. History of hypertension present. History of hyperlipidemia present. There is no history of syncope. ENDOCRINE: No history of diabetes mellitus or thyroid disease. No history of obesity. METABOLIC: History of hyperlipidemia present. No history of gout. No history of obesity. RENAL: No history of chronic kidney disease. No symptoms of enlarged prostate. No history of hematuria pyuria or dysuria. MUSCULOSKELETAL: Denies arthritis or collagen vascular disease. GI: No history of GI bleed. No history of peptic ulcer disease. No history of fatty food intolerance. No history of jaundice. No history of altered bowel movements. No history of GI bleed. MANAGER ADULT: No history of TIA or CVA. No history of headaches migraines or seizures. No gait imbalance. PSYCHIATRIC: No history of anxiety or depression. No history of suicidal ideation. No history of homicidal ideation. VASCULAR: No history of DVT. No history of calf or buttock claudication. HEMATOLOGICAL: No history of bleeding diathesis. No history of clotting disorders. No history of anemia. Current Medications Acetaminophen (Tylenol 325 Mg Tablet) 650 mg PO Q6HP PRN PRN Reason: HEADACHE Stop: 01/29/19 20:24 Last Admin: 12/31/18 15:26 Dose: 650 mg Documented by: Albuterol (Ventolin 0.083% Neb 2.5 Mg/3 Ml Ampul) 2.5 mg NEB RTQ2HP PRN PRN Reason: SHORTNESS OF BREATH Stop: 01/29/19 16:11 Albuterol/Ipratropium (Duoneb 3 Ml Ampul) 3 ml NEB RTQ4HP PRN PRN Reason: SHORTNESS OF BREATH Stop: 01/29/19 11:58 Albuterol/Ipratropium (Duoneb 3 Ml Ampul) 3 ml NEB [id number] YANNI Stop: 01/29/19 19:59 Last Admin: 12/31/18 20:02 Dose: 3 ml Documented by: Alendronate Sodium (Fosamax "Weekly" 35 Mg Tablet) 70 mg PO Q7D@1000 [facility] Stop: 02/05/19 09:59 Amlodipine Besylate (Norvasc 10 Mg Tablet) 10 mg PO DAILY YANNI Stop: 01/30/19 09:59 Last Admin: 12/31/18 09:18 Dose: 10 mg Documented by: Atorvastatin Calcium (Lipitor 40 Mg Tablet) 40 mg PO QHS YANNI Stop: 01/29/19 21:59 Last Admin: 12/31/18 21:44 Dose: 40 mg Documented by: Guaifenesin (Mucinex Sr 600 Mg Tablet.Sa) 600 mg PO Q12 YANNI Stop: 01/29/19 21:59 Last Admin: 12/31/18 21:44 Dose: 600 mg Documented by: Heparin Sodium (Porcine) (Heparin Inj 1,000 Unit/Ml 10 Ml Vial) 0 - 12,000 unit IV .BOLUS PER PROTOCOL PRN; Protocol PRN Reason: RESPOND TO aPTT VALUES Stop: 01/29/19 17:29 Last Admin: 12/31/18 02:56 Dose: 2,700 units Documented by: Hydrochlorothiazide (Hydrodiuril 25 Mg Tablet) 25 mg PO DAILY YANNI Stop: 01/30/19 09:59 Last Admin: 12/31/18 09:18 Dose: 25 mg Documented by: Diltiazem HCl (Cardizem Rtu Inj 125 Mg-D5w 125 Ml Premix) 125 mg in 125 mls @ 0 mls/hr IV CONTINUOUS PRN; Protocol PRN Reason: THIS MED IS NOT "PRN" Stop: 01/29/19 13:31 Last Admin: 12/31/18 06:30 Dose: 5 mg/hr, 5 mls/hr Documented by: Ceftriaxone Sodium/Dextrose (Rocephin Rtu 1 Gm/D5w 50 Ml Premix) 1 gm in 50 mls @ 100 mls/hr IV QPM [facility] Stop: 01/06/19 17:59 Last Infusion: 12/31/18 17:41 Dose: Infused Documented by: Azithromycin 500 mg/ Dextrose 250 mls @ 250 mls/hr IV QHS YANNI Stop: 01/06/19 21:59 Last Admin: 12/31/18 21:42 Dose: 250 ml/hr, 250 mls/hr Documented by: Heparin Sodium/Dextrose (Heparin Rtu 25,000 Unit/250 Ml D5w Premix) 25,000 unit in 250 mls @ 0 mls/hr IV CONTINUOUS PRN; Protocol PRN Reason: THIS MED IS NOT "PRN" Stop: 01/29/19 17:29 Last Admin: 12/31/18 12:44 Dose: 12.69 ml/hr, 12.69 mls/hr Documented by: Losartan Potassium (Cozaar 50 Mg Tablet) 100 mg PO DAILY [facility] Stop: 01/30/19 09:59 Last Admin: 12/31/18 09:18 Dose: 100 mg Documented by: Prednisone (Deltasone 20 Mg Tablet) 20 mg PO DAILY [facility] Stop: 01/30/19 13:29 Last Admin: 12/31/18 13:26 Dose: 20 mg Documented by: Discontinued Medications Acetaminophen (Tylenol 325 Mg Tablet) 975 mg PO NOW ONE Stop: 12/30/18 10:54 Last Admin: 12/30/18 11:47 Dose: 975 mg Documented by: Diltiazem HCl (Cardizem Inj 25 Mg/5 Ml Vial) 20 mg IV NOW ONE Stop: 12/30/18 13:31 Last Admin: 12/30/18 13:40 Dose: 20 mg Documented by: Furosemide (Lasix Inj/Pf 40 Mg/4 Ml Sdv) 40 mg IV NOW ONE Stop: 12/30/18 10:52 Last Admin: 12/30/18 11:50 Dose: 40 mg Documented by: Heparin Sodium (Porcine) (Heparin Inj 1,000 Unit/Ml 10 Ml Vial) 0 - 15,000 unit IV .BOLUS PER PROTOCOL PRN; Protocol PRN Reason: RESPOND TO aPTT VALUES Stop: 01/29/19 16:59 Heparin Sodium/Dextrose (Heparin Rtu 25,000 Unit/250 Ml D5w Premix) 25,000 unit in 250 mls @ 0 mls/hr IV CONTINUOUS PRN; Protocol PRN Reason: THIS MED IS NOT "PRN" Stop: 01/29/19 16:31 PHYSICAL EXAMINATION: The patient is well-built and well-nourished. In mild respiratory distress. Selected Entries 12/31/18 16:42 Temperature 98.1 F Temperature Oral Source Pulse Rate 84 Respiratory 18 Rate Blood Pressure 152/63 H Blood Pressure 92 Mean BP Location Left Arm BP Position Sitting O2 Sat by Pulse 96 Oximetry Oxygen Flow 2.00 Rate Oxygen Delivery Nasal Cannula Method head: Is atraumatic normocephalic. EYES: Pupils equal round regular reactive to light accommodation. Extraocular movements are normal. There is no conjunctival pallor. There is no scleral icterus. EARS: Tympanic membranes are intact. External auditory canals are clear. NOSE: There is no deviated nasal septum. There is no inflammation of these mucous membranes. MOUTH: Mucous membranes of mouth are moist. Tongue are moist. There is no ulcers. There is no bleeding from the gums. THROAT: There is no redness of the oropharynx. There is no exudates. SKIN: There is no skin rashes. There is no skin lesions. There is no particular ecchymosis. NECK: Is supple there is no JVD. Carotids are equal there is no bruit there is no lymphadenopathy. There is no goiter. There is no accessory muscle respiration use. Trachea central. LUNGS: Shows diminished air entry prolonged expiration. There is scattered rhonchi and bilateral wheezing. No rales of CHF. There are few dry crackles bilaterally of pneumonia. On percussion there is hyperresonance. There is no areas of dullness.. On palpation there is no chest wall tenderness. HEART: S1-S2 is heard. There is no S3 gallop. There is no S4 gallop. S1 is of variable intensity. There is murmur of tricuspid regurgitation, and mild mitral regurgitation present. There is murmur of aortic sclerosis. No aortic stenosis murmur heard. Unable to appreciate aortic regurgitation murmur. There is no S3 gallop. There is no S4 gallop. There is no rub. ABDOMEN: Is soft. Nontender. There is no hepatospleno megaly. Bowel sounds well heard. EXTREMITIES: Femorals are diminished. There is no femoral bruits. Leg pulses are well felt. There is no pedal edema. There is no DVT escalators. There is no cyanosis or clubbing. There is no calf tenderness. MANAGER ADULT: The patient is conscious awake alert oriented x3 with no focal deficits. PSYCHIATRIC: The patient judgment insight are intact his affect is normal. Labs- Entire Visit 12/30/18 12/30/18 12/30/18 08:30 08:30 08:30 WBC 12.9 H RBC 4.22 L Hgb 11.9 L Hct 35.5 L MCV 84 MCH 28.1 MCHC 33.4 RDW 14.2 H Plt Count 212 Lymph % (Auto) Not Reportable [place] % (Auto) Not Reportable Eos % (Auto) Not Reportable Baso % (Auto) Not Reportable Absolute Neuts (auto) Not Reportable Absolute Lymphs (auto) Not Reportable Absolute Monos (auto) Not Reportable Absolute Eos (auto) Not Reportable Absolute Basos (auto) Not Reportable Total Counted 100 Seg Neutrophils % Not Reportable Seg Neuts % (Manual) 87 H Band Neutrophils % 1 L Lymphocytes % (Manual) 6 L Monocytes % (Manual) 5 Eosinophils % (Manual) 1 Basophils % (Manual) 0 Abs Neuts (Manual) 11.4 H Abs Lymphs (Manual) 0.8 Abs Monocytes (Manual) 0.6 Absolute Eos (Manual) 0.1 Abs Basophils (Manual) 0.0 Nucleated RBCs 1 Platelet Comment ADEQUATE RBC Morph Comment NORMO-CYTIC/CHROMIC PT 14.1 INR 1.09 INR (Anticoag Therapy) APTT VBG pH VBG pCO2 VBG HCO3 VBG Base Excess Sodium 140.3 Potassium 4.3 Chloride 106 Carbon Dioxide 24 Anion Gap 10 BUN 15 Creatinine 1.17 Est GFR ( Amer) > 60 Est GFR (MDRD) Non-Af > 60 Glucose 234 H Lactic Acid Calcium 9.5 Magnesium Total Bilirubin 1.0 Direct Bilirubin 0.2 Neonat Total Bilirubin Not Reportable Neonat Direct Bilirubin Not Reportable Neonat Indirect Bili Not Reportable AST 61 H ALT 65 Alkaline Phosphatase 76 Creatine Kinase 292 H CK-MB (CK-2) Troponin I NT-Pro-B Natriuret Pep Total Protein 7.0 Albumin 4.1 [facility] 12/30/18 12/30/18 12/30/18 08:30 08:30 08:30 WBC RBC Hgb Hct MCV MCH MCHC RDW Plt Count Lymph % (Auto) [place] % (Auto) Eos % (Auto) Baso % (Auto) Absolute Neuts (auto) Absolute Lymphs (auto) Absolute Monos (auto) Absolute Eos (auto) Absolute Basos (auto) Total Counted Seg Neutrophils % Seg Neuts % (Manual) Band Neutrophils % Lymphocytes % (Manual) Monocytes % (Manual) Eosinophils % (Manual) Basophils % (Manual) Abs Neuts (Manual) Abs Lymphs (Manual) Abs Monocytes (Manual) Absolute Eos (Manual) Abs Basophils (Manual) Nucleated RBCs Platelet Comment RBC Morph Comment PT Cancelled INR Cancelled INR (Anticoag Therapy) Cancelled APTT VBG pH VBG pCO2 VBG HCO3 VBG Base Excess Sodium Potassium Chloride Carbon Dioxide Anion Gap BUN Creatinine Est GFR ( Amer) Est GFR (MDRD) Non-Af Glucose Lactic Acid Calcium Magnesium Total Bilirubin Direct Bilirubin Neonat Total Bilirubin Neonat Direct Bilirubin Neonat Indirect Bili AST ALT Alkaline Phosphatase Creatine Kinase CK-MB (CK-2) 3.92 Troponin I < 0.012 NT-Pro-B Natriuret Pep 2840 H Total Protein Albumin [facility] 12/30/18 12/30/18 12/30/18 08:30 09:00 14:34 WBC RBC Hgb Hct MCV MCH MCHC RDW Plt Count Lymph % (Auto) [place] % (Auto) Eos % (Auto) Baso % (Auto) Absolute Neuts (auto) Absolute Lymphs (auto) Absolute Monos (auto) Absolute Eos (auto) Absolute Basos (auto) Total Counted Seg Neutrophils % Seg Neuts % (Manual) Band Neutrophils % Lymphocytes % (Manual) Monocytes % (Manual) Eosinophils % (Manual) Basophils % (Manual) Abs Neuts (Manual) Abs Lymphs (Manual) Abs Monocytes (Manual) Absolute Eos (Manual) Abs Basophils (Manual) Nucleated RBCs Platelet Comment RBC Morph Comment PT INR INR (Anticoag Therapy) APTT VBG pH 7.35 VBG pCO2 40.7 VBG HCO3 21.7 VBG Base Excess -3.7 Sodium Potassium Chloride Carbon Dioxide Anion Gap BUN Creatinine Est GFR ( Amer) Est GFR (MDRD) Non-Af Glucose Lactic Acid 1.9 Calcium Magnesium Total Bilirubin Direct Bilirubin Neonat Total Bilirubin Neonat Direct Bilirubin Neonat Indirect Bili AST ALT Alkaline Phosphatase Creatine Kinase CK-MB (CK-2) Troponin I 0.021 NT-Pro-B Natriuret Pep Total Protein Albumin TSH 12/30/18 12/30/18 12/30/18 16:41 16:41 16:41 WBC 10.2 RBC 4.21 L Hgb 11.8 L Hct 35.2 L MCV 84 MCH 28.1 MCHC 33.6 RDW 14.5 H Plt Count 210 Lymph % (Auto) 6.7 L [place] % (Auto) 7.4 Eos % (Auto) 1.5 Baso % (Auto) 0.3 Absolute Neuts (auto) 8.6 H Absolute Lymphs (auto) 0.7 Absolute Monos (auto) 0.8 Absolute Eos (auto) 0.1 Absolute Basos (auto) 0.0 Total Counted Seg Neutrophils % 84.1 H Seg Neuts % (Manual) Band Neutrophils % Lymphocytes % (Manual) Monocytes % (Manual) Eosinophils % (Manual) Basophils % (Manual) Abs Neuts (Manual) Abs Lymphs (Manual) Abs Monocytes (Manual) Absolute Eos (Manual) Abs Basophils (Manual) Nucleated RBCs Platelet Comment RBC Morph Comment PT INR INR (Anticoag Therapy) APTT VBG pH VBG pCO2 VBG HCO3 VBG Base Excess Sodium Potassium Chloride Carbon Dioxide Anion Gap BUN Creatinine Est GFR ( Amer) Est GFR (MDRD) Non-Af Glucose Lactic Acid Calcium Magnesium 1.9 Total Bilirubin Direct Bilirubin Neonat Total Bilirubin Neonat Direct Bilirubin Neonat Indirect Bili AST ALT Alkaline Phosphatase Creatine Kinase CK-MB (CK-2) Troponin I NT-Pro-B Natriuret Pep Total Protein Albumin TSH 4.74 H 12/30/18 12/30/18 12/30/18 17:33 20:41 23:44 WBC RBC Hgb Hct MCV MCH MCHC RDW Plt Count Lymph % (Auto) [place] % (Auto) Eos % (Auto) Baso % (Auto) Absolute Neuts (auto) Absolute Lymphs (auto) Absolute Monos (auto) Absolute Eos (auto) Absolute Basos (auto) Total Counted Seg Neutrophils % Seg Neuts % (Manual) Band Neutrophils % Lymphocytes % (Manual) Monocytes % (Manual) Eosinophils % (Manual) Basophils % (Manual) Abs Neuts (Manual) Abs Lymphs (Manual) Abs Monocytes (Manual) Absolute Eos (Manual) Abs Basophils (Manual) Nucleated RBCs Platelet Comment RBC Morph Comment PT 15.0 INR 1.17 INR (Anticoag Therapy) APTT 29.8 52.2 H VBG pH VBG pCO2 VBG HCO3 VBG Base Excess Sodium Potassium Chloride Carbon Dioxide Anion Gap BUN Creatinine Est GFR ( Amer) Est GFR (MDRD) Non-Af Glucose Lactic Acid Calcium Magnesium Total Bilirubin Direct Bilirubin Neonat Total Bilirubin Neonat Direct Bilirubin Neonat Indirect Bili AST ALT Alkaline Phosphatase Creatine Kinase CK-MB (CK-2) Troponin I 0.014 NT-Pro-B Natriuret Pep Total Protein Albumin TSH 12/30/18 12/31/18 12/31/18 23:44 04:37 04:37 WBC 7.4 RBC 3.83 L Hgb 11.0 L Hct 32.5 L MCV 85 MCH 28.6 MCHC 33.7 RDW 14.6 H Plt Count 180 Lymph % (Auto) [place] % (Auto) Eos % (Auto) Baso % (Auto) Absolute Neuts (auto) Absolute Lymphs (auto) Absolute Monos (auto) Absolute Eos (auto) Absolute Basos (auto) Total Counted Seg Neutrophils % Seg Neuts % (Manual) Band Neutrophils % Lymphocytes % (Manual) Monocytes % (Manual) Eosinophils % (Manual) Basophils % (Manual) Abs Neuts (Manual) Abs Lymphs (Manual) Abs Monocytes (Manual) Absolute Eos (Manual) Abs Basophils (Manual) Nucleated RBCs Platelet Comment RBC Morph Comment PT INR INR (Anticoag Therapy) APTT VBG pH VBG pCO2 VBG HCO3 VBG Base Excess Sodium 138.4 Potassium 4.1 Chloride 104 Carbon Dioxide 26 Anion Gap 8 BUN 18 Creatinine 1.19 Est GFR ( Amer) > 60 Est GFR (MDRD) Non-Af > 60 Glucose 124 H Lactic Acid Calcium 9.1 Magnesium Total Bilirubin Direct Bilirubin Neonat Total Bilirubin Neonat Direct Bilirubin Neonat Indirect Bili AST ALT Alkaline Phosphatase Creatine Kinase CK-MB (CK-2) Troponin I 0.013 NT-Pro-B Natriuret Pep Total Protein Albumin TSH 12/31/18 12/31/18 04:37 09:06 WBC RBC Hgb Hct MCV MCH MCHC RDW Plt Count Lymph % (Auto) [place] % (Auto) Eos % (Auto) Baso % (Auto) Absolute Neuts (auto) Absolute Lymphs (auto) Absolute Monos (auto) Absolute Eos (auto) Absolute Basos (auto) Total Counted Seg Neutrophils % Seg Neuts % (Manual) Band Neutrophils % Lymphocytes % (Manual) Monocytes % (Manual) Eosinophils % (Manual) Basophils % (Manual) Abs Neuts (Manual) Abs Lymphs (Manual) Abs Monocytes (Manual) Absolute Eos (Manual) Abs Basophils (Manual) Nucleated RBCs Platelet Comment RBC Morph Comment PT Cancelled 14.9 INR Cancelled 1.17 INR (Anticoag Therapy) Cancelled APTT Cancelled 63.6 H VBG pH VBG pCO2 VBG HCO3 VBG Base Excess Sodium Potassium Chloride Carbon Dioxide Anion Gap BUN Creatinine Est GFR ( Amer) Est GFR (MDRD) Non-Af Glucose Lactic Acid Calcium Magnesium Total Bilirubin Direct Bilirubin Neonat Total Bilirubin Neonat Direct Bilirubin Neonat Indirect Bili AST ALT Alkaline Phosphatase Creatine Kinase CK-MB (CK-2) Troponin I NT-Pro-B Natriuret Pep Total Protein Albumin TSH Chest CT 12/30/18 00:00 IMPRESSION: Minimal patchy pneumonitis. Chest X-Ray 12/30/18 08:42 IMPRESSION: 1. No significant interval changes since the prior examination dated 12/06/2016. Chronic mild changes in the lungs. EKG: Atrial fibrillation with controlled ventricular response. LVH. Diffuse nonspecific ST-T changes. ECHOCARDIOGRAM: Left ventricle is of normal size. There is no LVH. LV ejection fraction is normal and greater than 60%. There is no regional or focal wall motion abnormality. There is moderate mitral regurgitation. There is moderate tricuspid regurgitation. There is moderate to severe pulmonary hypertension with right ventricle systolic pressure of 57 to 62 mmHg. The right ventricle is mild to moderately enlarged. There is aortic sclerosis without stenosis. There is mild aortic regurgitation APPLE CORRECTED VASC2 score in this patient is 3. Hence high risk for CVA. Hence chronic anticoagulation therapy is definitely indicated. The patient at present currently on IV heparin at full dose. Will speak to the patient about the newer anticoagulation agents that can be taken orally. IMPRESSION/RECOMMENDATION: 1. Atrial fibrillation with rapid ventricular response. At present the rate has been controlled. Would recommend continue the patient IV Cardizem and IV heparin. Later we will switch to oral Cardizem and oral anticoagulation. As mentioned earlier the chronic anticoagulation therapy is indicated in this patient. He has no contraindication for chronic anticoagulation. 2. Bilateral patchy pneumonitis: Continue antibiotics, oxygen and BiPAP as needed, and bronchodilators. 3. COPD with acute exacerbation: Continue current treatment as mentioned above. 4. Coronary artery disease. History of coronary bypass graft surgery. Patient without anginal symptoms. No evidence of acute coronary syndrome. Patient is a EKG does not show any ischemic changes of acute illness, and troponin is negative. 5. History of coronary bypass graft surgery. Will get records from [facility] 6. Hypertension: Blood pressure slightly elevated. Most likely this is secondary to the patient's lung condition. Continue current antihypertensives. 7. Hyperlipidemia: Continue statins. Medications reviewed. Management plan discussed with attending physician on the case. Medical decision making is of high complexity. Note that the patient states he follows with Dr. Luevano of [facility] who has an office in [place]. We will try to get records. So far this has been unsuccessful. 60 minutes spent on this patient more than 50% of time spent in direct patient care. Will follow
[2018-12-31] MEDS: AZITHROMYCIN 500 MG in DEXTROSE 5%-WATER 250 ML IV SCH (21:42)
[2018-12-31] MEDS: ATORVASTATIN CALCIUM 40 MG TABLET PO SCH (21:44)
[2019-01-01] MEDS: DILTIAZEM HCL/D5W 125 MG/125 ML RTUINJ IV PRN (04:05)
[2019-01-01 05:40] LABS: HEMATOCRIT 32.8 % (37.9-51.0); HEMOGLOBIN 11.1 g/dL (13.5-17.0); MEAN CORPUSCULAR HEMOGLOBIN 28.4 pg (27.0-33.4); MEAN CORPUSCULAR HGB CONC 33.9 g/dL (32.0-36.0); MEAN CORPUSCULAR VOLUME 84 fl (80-97); PLATELET COUNT 199 10^3/uL (150-450); RED BLOOD COUNT 3.92 10^6/uL (4.35-5.55); RED CELL DISTRIBUTION WIDTH 14.2 % (11.5-14.0); WHITE BLOOD COUNT 7.8 10^3/uL (4.0-10.5)
[2019-01-01 05:58] LABS: INTERNATIONAL RATION (INR) 1.05; PROTHROMBIN TIME 13.7 SEC (11.4-15.4)
[2019-01-01 05:59] LABS: PARTIAL THROMBOPLASTIN TIME 56.9 SEC (23.5-35.8)
[2019-01-01 06:01] LABS: ANION GAP 10 (5-19); BLOOD UREA NITROGEN 20 mg/dL (7-20); CALCIUM 9.5 mg/dL (8.4-10.2); CARBON DIOXIDE 25 mmol/L (22-30); CHLORIDE 101 mmol/L (98-107); GLUCOSE 129 mg/dL (75-110); POTASSIUM 4.4 mmol/L (3.6-5.0)
[2019-01-01] MEDS: HEPARIN SOD (PORCINE) 1,000 UNIT/ML 10 ML VIAL IV PRN (07:12)
[2019-01-01] MEDS: IPRATROPIUM/ALBUTEROL 0.5-2.5 MG/3 ML AMPUL NEB SCH ×4 (08:26→19:53)
[2019-01-01] MEDS: AMLODIPINE BESYLATE 10 MG TABLET PO SCH (10:02)
[2019-01-01] MEDS: GUAIFENESIN 600 MG TABLET.SA PO SCH ×2 (10:02→21:29)
[2019-01-01] MEDS: HYDROCHLOROTHIAZIDE 25 MG TABLET PO SCH (10:02)
[2019-01-01] MEDS: PREDNISONE 20 MG TABLET PO SCH (10:03)
[2019-01-01] MEDS: LOSARTAN POTASSIUM 50 MG TABLET PO SCH (10:03)
--- NOTE | 2019-01-01 11:56 | PDOC PROGRESS REPORT ---
Subjective Progress Note for:: 01/01/19 Subjective:: 12/31: Patient was seen and examined. He is feeling better today. His oxygen requirements decreased to 2 L. He is afebrile and his white count normalized. CT scan shows pneumonitis which is minimal. Troponins are negative. He is on Cardizem drip still and has heart rate significantly improved. 01/01: Patient was seen and examined. He continues to feel better. Still needing oxygen. Echocardiogram shows normal EF and moderate MR. His heart rate is slowing down. Reason For Visit: SHORTNESS OF BREATH Physical Exam Vital Signs: Temp Pulse Resp BP Pulse Ox 97.9 F 85 18 145/72 H 96 01/01/19 08:02 01/01/19 09:00 01/01/19 08:29 01/01/19 09:00 01/01/19 08:29 Intake & Output 12/31/18 01/01/19 01/02/19 06:59 06:59 06:59 Intake Total 580 2034 250 Output Total 425 2175 Balance 155 -141 250 Weight 208 lb 15.971 oz 204 lb 12.951 oz Exam: Patient is no acute distress Alert oriented to time place person No anxiety or depression Head: atraumatic normocephalic Pupils: are equal reactive Neck: is supple and trachea is central no lymphadenopathy No pharyngeal erythema or exudates Heart: A. fib Lungs: bilateral wheezing and rhonchi Abdomen: nontender nondistended Neurological exam: unremarkable Musculoskeletal: No joint swelling or effusion chronic lower back pain and tenderness No suicidal or homicidal ideation Results Laboratory Results: 01/01/19 04:53 01/01/19 04:53 01/01/19 01/01/19 04:53 04:53 WBC 7.8 RBC 3.92 L Hgb 11.1 L Hct 32.8 L MCV 84 MCH 28.4 MCHC 33.9 RDW 14.2 H Plt Count 199 Sodium 135.9 L Potassium 4.4 Chloride 101 Carbon Dioxide 25 Anion Gap 10 BUN 20 Creatinine 1.04 Est GFR ( Amer) > 60 Glucose 129 H Calcium 9.5 12/30/18 12/30/18 12/30/18 08:30 08:30 08:30 Creatine Kinase 292 H CK-MB (CK-2) 3.92 Troponin I < 0.012 NT-Pro-B Natriuret Pep 2840 H 12/30/18 12/30/18 12/30/18 14:34 20:41 23:44 Creatine Kinase CK-MB (CK-2) Troponin I 0.021 0.014 0.013 NT-Pro-B Natriuret Pep Impressions: Chest CT 12/30/18 00:00 IMPRESSION: Minimal patchy pneumonitis. Chest X-Ray 12/30/18 08:42 IMPRESSION: 1. No significant interval changes since the prior examination dated 12/06/2016. Chronic mild changes in the lungs. Assessment and Plan - Diagnosis (1) Atrial fibrillation Qualifiers: Atrial fibrillation type: paroxysmal Qualified Code(s): I48.0 - Paroxysmal atrial fibrillation Is this a current diagnosis for this admission?: Yes Plan: Echocardiogram shows normal EF and moderate MR. [id number] 4 magnesium 1.9 and TSH 4.74. Negative serial troponin. Stop heparin drip and start Eliquis. Continue Cardizem drip. Add Toprol in anticipation of stopping the drip later today. (2) Pneumonia Is this a current diagnosis for this admission?: Yes Plan: Continue IV ceftriaxone and azithromycin empirically. Reviewed CT scan of the chest. Monitor cultures. Continue scheduled DuoNeb and albuterol as needed. (3) Coronary artery disease Is this a current diagnosis for this admission?: Yes Plan: Continue home medications (4) Hypertension Is this a current diagnosis for this admission?: Yes Plan: Continue home medications. Monitor blood pressure (5) Dyslipidemia Is this a current diagnosis for this admission?: Yes Plan: Continue statin treatment (6) History of prostate cancer Is this a current diagnosis for this admission?: Yes Plan: Status post prostatectomy 2008
[2019-01-01] MEDS: METOPROLOL SUCCINATE 50 MG TAB.SR.24H PO SCH (13:52)
[2019-01-01 14:05] LABS: APPEARANCE,URINE CLEAR; BILIRUBIN,URINE NEGATIVE (NEGATIVE); COLOR,URINE STRAW; GLUCOSE, URINE NEGATIVE (NEGATIVE); KETONES,URINE NEGATIVE (NEGATIVE); LEUKOCYTE ESTERASE,URINE NEGATIVE (NEGATIVE); NITRITE,URINE NEGATIVE (NEGATIVE); PROTEIN,URINE NEGATIVE (NEGATIVE); URINE SPECIFIC GRAVITY 1.008; UROBILINOGEN,URINE NEGATIVE mg/dL (<2.0)
[2019-01-01] MEDS ORDERED: APIXABAN 5 MG TABLET PO ONE (14:30)
[2019-01-01] MEDS: APIXABAN 5 MG TABLET PO SCH (17:24)
[2019-01-01] MEDS: CEFTRIAXONE 1 GM/D5W RTU 1 GM/50 ML RTUPB IV SCH (17:42)
[2019-01-01] MEDS: ACETAMINOPHEN 325 MG TABLET PO PRN (21:29)
[2019-01-01] MEDS: ATORVASTATIN CALCIUM 40 MG TABLET PO SCH (21:29)
[2019-01-01] MEDS ORDERED: AZITHROMYCIN 250 MG TABLET PO SCH (22:00)
--- NOTE | 2019-01-01 22:14 | Progress Note ---
Provider Note Provider Note: CARDIOLOGY PROGRESS NOTE by Dr. Mandy Wu on 01/01/2019. SUBJECTIVE: The patient still has some wheezing but is getting better. He still coughing up yellowish sputum. The patient denies any PND orthopnea or chest pain or discomfort. Patient continues to be in atrial fibrillation. There is no bleeding on full dose IV heparin. There is no TIA CVA symptoms. There is no leg edema. There is no ventricular arrhythmia seen on the monitor. Physical EXAMINATION: The patient is well-built and well-nourished. In no acute distress. He is well-groomed. Selected Entries 01/01/19 08:02 Temperature 97.9 F Temperature Oral Source Pulse Rate 99 Respiratory 18 Rate Blood Pressure 138/74 H Blood Pressure 95 Mean BP Location Left Arm BP Position Sitting O2 Sat by Pulse 96 Oximetry Oxygen Delivery Room Air Method HEAD: Is atraumatic normocephalic. EYES: Pupils equal round regular reactive to light accommodation. Extraocular movements are normal. There is no conjunctival pallor. There is no scleral icterus. EARS: Tympanic membranes are intact. External auditory canals are clear. NOSE: There is no deviated nasal septum. There is no inflammation of these mucous membranes. MOUTH: Mucous membranes of mouth are moist. Tongue are moist. There is no ulcers. There is no bleeding from the gums. THROAT: There is no redness of the oropharynx. There is no exudates. SKIN: There is no skin rashes. There is no skin lesions. There is no particular ecchymosis. NECK: Is supple there is no JVD. Carotids are equal there is no bruit there is no lymphadenopathy. There is no goiter. There is no accessory muscle respiration use. Trachea central. LUNGS: Shows diminished air entry prolonged expiration. There is scattered rhonchi and bilateral wheezing. No rales of CHF. There are few dry crackles bilaterally of pneumonia. On percussion there is hyperresonance. There is no areas of dullness.. On palpation there is no chest wall tenderness. HEART: S1-S2 is heard. There is no S3 gallop. There is no S4 gallop. S1 is of variable intensity. There is murmur of tricuspid regurgitation, and mild mitral regurgitation present. There is murmur of aortic sclerosis. No aortic stenosis murmur heard. Unable to appreciate aortic regurgitation murmur. There is no S3 gallop. There is no S4 gallop. There is no rub. ABDOMEN: Is soft. Nontender. There is no hepatospleno megaly. Bowel sounds well heard. EXTREMITIES: Femorals are diminished. There is no femoral bruits. Leg pulses are well felt. There is no pedal edema. There is no DVT escalators. There is no cyanosis or clubbing. There is no calf tenderness. FACILITY SERVICE ASSOCIATE: The patient is conscious awake alert oriented x3 with no focal deficits. PSYCHIATRIC: The patient judgment insight are intact his affect is normal. Labs- All tests 24 hr 01/01/19 01/01/19 01/01/19 04:53 04:53 04:53 WBC 7.8 RBC 3.92 L Hgb 11.1 L Hct 32.8 L MCV 84 MCH 28.4 MCHC 33.9 RDW 14.2 H Plt Count 199 PT 13.7 INR 1.05 APTT 56.9 H Sodium 135.9 L Potassium 4.4 Chloride 101 Carbon Dioxide 25 Anion Gap 10 BUN 20 Creatinine 1.04 Est GFR ( Amer) > 60 Est GFR (MDRD) Non-Af > 60 Glucose 129 H Calcium 9.5 Urine Color Urine Appearance Urine pH Ur Specific [place] Urine Protein Urine Glucose (UA) Urine Ketones Urine Blood Urine Nitrite Urine Bilirubin Urine Urobilinogen Ur Leukocyte Esterase Urine Mucus (Auto) Urine Ascorbic Acid Stl Occult Blood (ICT) 01/01/19 01/01/19 01/01/19 12:20 12:57 13:45 WBC RBC Hgb Hct MCV MCH MCHC RDW Plt Count PT INR APTT Cancelled 64.1 H Sodium Potassium Chloride Carbon Dioxide Anion Gap BUN Creatinine Est GFR ( Amer) Est GFR (MDRD) Non-Af Glucose Calcium Urine Color STRAW Urine Appearance CLEAR Urine pH 7.0 Ur Specific [place] 1.008 Urine Protein NEGATIVE Urine Glucose (UA) NEGATIVE Urine Ketones NEGATIVE Urine Blood NEGATIVE Urine Nitrite NEGATIVE Urine Bilirubin NEGATIVE Urine Urobilinogen NEGATIVE Ur Leukocyte Esterase NEGATIVE Urine Mucus (Auto) RARE Urine Ascorbic Acid NEGATIVE Stl Occult Blood (ICT) 01/01/19 19:30 WBC RBC Hgb Hct MCV MCH MCHC RDW Plt Count PT INR APTT Sodium Potassium Chloride Carbon Dioxide Anion Gap BUN Creatinine Est GFR ( Amer) Est GFR (MDRD) Non-Af Glucose Calcium Urine Color Urine Appearance Urine pH Ur Specific [place] Urine Protein Urine Glucose (UA) Urine Ketones Urine Blood Urine Nitrite Urine Bilirubin Urine Urobilinogen Ur Leukocyte Esterase Urine Mucus (Auto) Urine Ascorbic Acid Stl Occult Blood (ICT) NEGATIVE Chest CT 12/30/18 00:00 IMPRESSION: Minimal patchy pneumonitis. Chest X-Ray 12/30/18 08:42 IMPRESSION: 1. No significant interval changes since the prior examination dated 12/06/2016. Chronic mild changes in the lungs. IMPRESSION/RECOMMENDATION: 1. Atrial fibrillation with rapid ventricular response. At present the rate has been controlled. With stopping the heparin and starting the patient on Eliquis. I have had a lengthy discussion with the patient about chronic anticoagulation medication. The bleeding risks have been discussed. Discussed Coumadin and the need for periodic blood testing, and the interaction of Coumadin with diet and medication to be discussed as opposed to the newer oral anticoagulation agents. There is no need for blood work and most of the drugs commonly used and diet do not interfere with its efficacy. I have also discussed that with Coumadin if the patient should have bleeding and if the INR is elevated it can be reversed. With the newer anticoagulation agents that she Eliquis this cannot be done. Note the patient already has been started on Eliquis 5 mg p.o. twice daily. Would recommend starting the patient on oral Cardizem preparation long-acting and stopping the patient's Cardizem drip. The patient already got a dose of Toprol-XL. Hence we will see if this has any deleterious wheezing effects on the patient. 2. Bilateral patchy pneumonitis: Continue antibiotics, oxygen and BiPAP as needed, and bronchodilators. 3. COPD with acute exacerbation: Continue current treatment as mentioned above. 4. Coronary artery disease. History of coronary bypass graft surgery. Patient without anginal symptoms. No evidence of acute coronary syndrome. Patient is a EKG does not show any ischemic changes of acute illness, and troponin is negative. 5. History of coronary bypass graft surgery. Will get records from [facility] 6. Hypertension: Blood pressure slightly elevated. Most likely this is secondary to the patient's lung condition. Continue current antihypertensives. 7. Hyperlipidemia: Continue statins. Medications reviewed. Management plan discussed with attending physician on the case. Medical decision making is of high complexity still in spite of multiple attempts unable to get records from Dr. Villa or from [facility]. We will keep trying. Will follow.
[2019-01-02] MEDS: DILTIAZEM HCL/D5W 125 MG/125 ML RTUINJ IV PRN (05:01)
[2019-01-02 05:38] LABS: HEMATOCRIT 34.8 % (37.9-51.0); HEMOGLOBIN 11.8 g/dL (13.5-17.0); MEAN CORPUSCULAR HEMOGLOBIN 28.4 pg (27.0-33.4); MEAN CORPUSCULAR VOLUME 84 fl (80-97); PLATELET COUNT 283 10^3/uL (150-450); RED BLOOD COUNT 4.17 10^6/uL (4.35-5.55); RED CELL DISTRIBUTION WIDTH 13.9 % (11.5-14.0); WHITE BLOOD COUNT 9.4 10^3/uL (4.0-10.5)
[2019-01-02 05:57] LABS: ANION GAP 12 (5-19); BLOOD UREA NITROGEN 20 mg/dL (7-20); CARBON DIOXIDE 23 mmol/L (22-30); CHLORIDE 100 mmol/L (98-107); GLUCOSE 102 mg/dL (75-110); POTASSIUM 4.3 mmol/L (3.6-5.0)
[2019-01-02] MEDS: IPRATROPIUM/ALBUTEROL 0.5-2.5 MG/3 ML AMPUL NEB SCH ×4 (08:04→20:18)
[2019-01-02] MEDS ORDERED: DILTIAZEM HCL 180 MG CAPSULE.CR PO SCH (10:25)
--- NOTE | 2019-01-02 10:33 | PDOC PROGRESS REPORT ---
Subjective Progress Note for:: 01/02/19 Subjective:: 12/31: Patient was seen and examined. He is feeling better today. His oxygen requirements decreased to 2 L. He is afebrile and his white count normalized. CT scan shows pneumonitis which is minimal. Troponins are negative. He is on Cardizem drip still and has heart rate significantly improved. 01/01: Patient was seen and examined. He continues to feel better. Still needing oxygen. Echocardiogram shows normal EF and moderate MR. His heart rate is slowing down. 01/02: Currently rate controlled. Still wheezing. Still on 2 L of oxygen. RN reports that he was dyspneic when he was walking in the hallways today. Reason For Visit: SHORTNESS OF BREATH Physical Exam Vital Signs: Temp Pulse Resp BP Pulse Ox 98.4 F 84 18 152/67 H 98 01/02/19 08:13 01/02/19 08:13 01/02/19 08:13 01/02/19 08:13 01/02/19 08:13 Intake & Output 01/01/19 01/02/19 01/03/19 06:59 06:59 06:59 Intake Total 2034 1885 Output Total 2175 3025 Balance -141 -1140 Weight 204 lb 12.951 oz 203 lb 0.732 oz Exam: Patient is no acute distress Alert oriented to time place person No anxiety or depression Head: atraumatic normocephalic Pupils: are equal reactive Neck: is supple and trachea is central no lymphadenopathy No pharyngeal erythema or exudates Heart: A. fib Lungs: bilateral wheezing Abdomen: nontender nondistended Neurological exam: unremarkable Musculoskeletal: No joint swelling or effusion chronic lower back pain and tenderness No suicidal or homicidal ideation Results Laboratory Results: 01/02/19 05:23 01/02/19 05:23 01/01/19 01/02/19 01/02/19 12:20 05:23 05:23 WBC 9.4 RBC 4.17 L Hgb 11.8 L Hct 34.8 L MCV 84 MCH 28.4 MCHC 34.0 RDW 13.9 Plt Count 283 Sodium 135.4 L Potassium 4.3 Chloride 100 Carbon Dioxide 23 Anion Gap 12 BUN 20 Creatinine 0.95 Est GFR ( Amer) > 60 Glucose 102 Calcium 10.0 Urine Color STRAW Urine Appearance CLEAR Urine pH 7.0 Ur Specific [place] 1.008 Urine Protein NEGATIVE Urine Glucose (UA) NEGATIVE Urine Ketones NEGATIVE Urine Blood NEGATIVE Urine Nitrite NEGATIVE Ur Leukocyte Esterase NEGATIVE 12/30/18 12/30/18 12/30/18 08:30 08:30 08:30 Creatine Kinase 292 H CK-MB (CK-2) 3.92 Troponin I < 0.012 NT-Pro-B Natriuret Pep 2840 H 12/30/18 12/30/18 12/30/18 14:34 20:41 23:44 Creatine Kinase CK-MB (CK-2) Troponin I 0.021 0.014 0.013 NT-Pro-B Natriuret Pep Impressions: Chest CT 12/30/18 00:00 IMPRESSION: Minimal patchy pneumonitis. Chest X-Ray 12/30/18 08:42 IMPRESSION: 1. No significant interval changes since the prior examination dated 12/06/2016. Chronic mild changes in the lungs. Assessment and Plan - Diagnosis (1) Atrial fibrillation Qualifiers: Atrial fibrillation type: paroxysmal Qualified Code(s): I48.0 - Paroxysmal atrial fibrillation Is this a current diagnosis for this admission?: Yes (2) Pneumonia Is this a current diagnosis for this admission?: Yes (3) Coronary artery disease Is this a current diagnosis for this admission?: Yes (4) Hypertension Is this a current diagnosis for this admission?: Yes (5) Dyslipidemia Is this a current diagnosis for this admission?: Yes (6) History of prostate cancer Is this a current diagnosis for this admission?: Yes - Plan Summary Plan Summary: (1) Atrial fibrillation Echocardiogram shows normal EF and moderate MR. [id number] 4 magnesium 1.9 and TSH 4.74. Negative serial troponin. He was initially started on heparin drip. Now he is on Eliquis. Initially was started on Cardizem drip. Then, Toprol in anticipation of stopping the drip later. Due to wheezing will stop Toprol and stop Cardizem drip and start oral Cardizem CD. (2) Pneumonia Patient was started on IV ceftriaxone and azithromycin empirically. Reviewed CT scan of the chest. Cultures so far negative. We will switch to oral Levaquin. Continue scheduled DuoNeb and albuterol as needed. Will increase prednisone to 40 mg daily. 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 (3) Coronary artery disease Continue home medications (4) Hypertension Continue home medications. Monitor blood pressure (5) Dyslipidemia Continue statin treatment (6) History of prostate cancer Status post prostatectomy 2008
[2019-01-02] MEDS: HYDROCHLOROTHIAZIDE 25 MG TABLET PO SCH (10:41)
[2019-01-02] MEDS: AMLODIPINE BESYLATE 10 MG TABLET PO SCH (10:42)
[2019-01-02] MEDS: APIXABAN 5 MG TABLET PO SCH ×2 (10:42→18:30)
[2019-01-02] MEDS: LOSARTAN POTASSIUM 50 MG TABLET PO SCH (10:44)
--- NOTE | 2019-01-02 11:32 | RADIOLOGY REPORT (SQ) ---
EXAM DESCRIPTION: CHEST 2 VIEWS COMPLETED DATE/TIME: 01/02/2019 10:58 am REASON FOR STUDY: sob COMPARISON: 12/30/2018. 12/06/2016. EXAM PARAMETERS: NUMBER OF VIEWS: two views TECHNIQUE: Digital Frontal and Lateral radiographic views of the chest acquired. RADIATION DOSE: NA LIMITATIONS: none FINDINGS: LUNGS AND PLEURA: There is again evidence of left chronic scarring left mid lung field wi th chronic left pleural thickening. There is evidence of discoid atelectasis at the right lung base with elevation right hemidiaphragm and right pleural effusion. MEDIASTINUM AND HILAR STRUCTURES: No masses or contour abnormalities. HEART AND VASCULAR STRUCTURES: Cardiomegaly. Pulmonary vasculature is normal. BONES: No acute findings. HARDWARE: Status post median sternotomy and CABG. OTHER: No other significant finding. IMPRESSION: Status post CABG. Cardiomegaly. Left pleural thickening. Interval development of righ t basilar discoid atelectasis with right pleural thickening or effusion. TECHNICAL DOCUMENTATION: JOB ID: [id number] 2010 [employer]- All Rights Reserved Reading location - IP/workstation name: [email or web address]
[2019-01-02] MEDS: LEVOTHYROXINE SODIUM 0.025 MG TABLET PO SCH (12:35)
[2019-01-02] MEDS: GUAIFENESIN 600 MG TABLET.SA PO SCH ×2 (12:35→21:03)
[2019-01-02] MEDS: PREDNISONE 20 MG TABLET PO SCH ×2 (12:35→19:05)
[2019-01-02 13:08] LABS: ARTERIAL BLOOD BASE EXCESS -0.4 mmol/L; ARTERIAL BLOOD H2CO3 1.13 mmol/L (1.05-1.35); ARTERIAL BLOOD HCO3 23.8 mmol/L (20-24); ARTERIAL BLOOD O2 SATURATION 93.8 % (94-98); ARTERIAL BLOOD PCO2 37.7 mmHg (35-45); ARTERIAL BLOOD PH 7.42 (7.35-7.45); ARTERIAL BLOOD PO2 67.2 mmHg (80-100)
[2019-01-02 13:09] LABS: ARTERIAL BLOOD FIO2 21%
[2019-01-02] MEDS: LEVOFLOXACIN 750 MG TABLET PO SCH (15:07)
[2019-01-02] MEDS: METOPROLOL SUCCINATE 50 MG TAB.SR.24H PO SCH (19:05)
[2019-01-02] MEDS: ATORVASTATIN CALCIUM 40 MG TABLET PO SCH (21:03)
--- NOTE | 2019-01-02 22:06 | Progress Note ---
Provider Note Provider Note: CARDIOLOGY PROGRESS NOTE by Dr. Mandy Wu on 01/02/2019. SUBJECTIVE: The patient is continued to wheeze, but less so. He is coughing up yellow sputum. There is no chest pain or discomfort. His atrial fibrillation ventricular response is controlled. He denies any chest pain or discomfort. There is no PND orthopnea. There is no bleeding on Eliquis. There is no TIA CVA symptoms. There is no ventricular arrhythmia seen on the monitor. Note agreeably the patient's beta-elkin has been discontinued due to the patient's ongoing wheezing. He is now on Cardizem. Will increase this as tolerated. PHYSICAL EXAMINATION: The patient is well-built and well-nourished. At present in no acute distress. Selected Entries 01/02/19 13:42 Temperature 97.6 F Temperature Oral Source Pulse Rate 84 Respiratory 16 Rate Blood Pressure 137/69 H Blood Pressure 91 Mean BP Location Left Arm BP Position Sitting O2 Sat by Pulse 93 Oximetry Oxygen Delivery Room Air Method HEAD: Is atraumatic normocephalic. EYES: Pupils equal round regular reactive to light accommodation. Extraocular movements are normal. There is no conjunctival pallor. There is no scleral icterus. EARS: Tympanic membranes are intact. External auditory canals are clear. NOSE: There is no deviated nasal septum. There is no inflammation of these mucous membranes. MOUTH: Mucous membranes of mouth are moist. Tongue are moist. There is no ulcers. There is no bleeding from the gums. THROAT: There is no redness of the oropharynx. There is no exudates. SKIN: There is no skin rashes. There is no skin lesions. There is no particular ecchymosis. NECK: Is supple there is no JVD. Carotids are equal there is no bruit there is no lymphadenopathy. There is no goiter. There is no accessory muscle respiration use. Trachea central. LUNGS: Shows diminished air entry prolonged expiration. There is scattered rhonchi and bilateral wheezing. No rales of CHF. There are few dry crackles bilaterally of pneumonia. On percussion there is hyperresonance. There is no areas of dullness.. On palpation there is no chest wall tenderness. HEART: S1-S2 is heard. There is no S3 gallop. There is no S4 gallop. S1 is of variable intensity. There is murmur of tricuspid regurgitation, and mild mitral regurgitation present. There is murmur of aortic sclerosis. No aortic stenosis murmur heard. Unable to appreciate aortic regurgitation murmur. There is no S3 gallop. There is no S4 gallop. There is no rub. ABDOMEN: Is soft. Nontender. There is no hepatospleno megaly. Bowel sounds well heard. EXTREMITIES: Femorals are diminished. There is no femoral bruits. Leg pulses are well felt. There is no pedal edema. There is no DVT escalators. There is no cyanosis or clubbing. There is no calf tenderness. MINERAL MIXER: The patient is conscious awake alert oriented x3 with no focal deficits. PSYCHIATRIC: The patient judgment insight are intact his affect is normal. Labs- All tests 24 hr 01/02/19 01/02/19 01/02/19 05:23 05:23 12:50 WBC 9.4 RBC 4.17 L Hgb 11.8 L Hct 34.8 L MCV 84 MCH 28.4 MCHC 34.0 RDW 13.9 Plt Count 283 Carbonic Acid 1.13 HCO3/H2CO3 Ratio 21:1 ABG pH 7.42 ABG pCO2 37.7 ABG pO2 67.2 L ABG HCO3 23.8 ABG Total CO2 25.0 ABG O2 Saturation 93.8 L ABG Base Excess -0.4 FiO2 21% Sodium 135.4 L Potassium 4.3 Chloride 100 Carbon Dioxide 23 Anion Gap 12 BUN 20 Creatinine 0.95 Est GFR ( Amer) > 60 Est GFR (MDRD) Non-Af > 60 Glucose [address] 12/30/18 00:00 IMPRESSION: Minimal patchy pneumonitis. Chest X-Ray 12/30/18 08:42 IMPRESSION: 1. No significant interval changes since the prior examination luc ed 12/06/2016. Chronic mild changes in the lungs. Chest X-Ray 01/02/19 00:00 IMPRESSION: Status post CABG. Cardiomegaly. Left pleural thickening. Interval development of right basilar discoid atelectasis with right pleural thickening or effusion. IMPRESSION/RECOMMENDATION: 1. Atrial fibrillation with controlled ventricular response. Agree with stop ping the patient's Lopressor in view of the patient's wheezing and switching to Cardizem. Continue Eliquis. 2. Bilateral patchy pneumonitis: Continue antibiotics, oxygen and BiPAP as needed, and bronchodilators. 3. COPD with acute exacerbation: Continue current treatment as mentioned above. 4. Coronary artery disease. History of coronary bypass graft surgery. Patient without anginal symptoms. No evidence of acute coronary syndrome. Patient is a EKG does not show any ischemic changes of acute illness, and troponin is negative. 5. History of coronary bypass graft surgery. Will get records from [facility] 6. Hypertension: Blood pressure slightly elevated. Most likely this is secondary to the patient's lung condition. Continue current antihypertensives. 7. Hyperlipidemia: Continue statins. Medications reviewed. Management plan discussed with attending physician on the case. Medical decision making is of high complexity still in spite of multiple attempts unable to get records from Dr. Villa or from [facility]. We will keep trying. Will follow.
[2019-01-03] MEDS: LEVOTHYROXINE SODIUM 0.025 MG TABLET PO SCH (06:05)
[2019-01-03] MEDS: IPRATROPIUM/ALBUTEROL 0.5-2.5 MG/3 ML AMPUL NEB SCH (08:22)
--- NOTE | 2019-01-03 09:52 | PDOC DISCHARGE SUMMARY ---
General - Admit/Disc Date/PCP Admission Date/Primary Care Provider: 12/30/18 12:06 NIKOLE QUIROGA PA-C Discharge Date: 01/03/19 - Discharge Diagnosis (1) Atrial fibrillation Is this a current diagnosis for this admission?: Yes (2) Pneumonia Is this a current diagnosis for this admission?: Yes (3) Coronary artery disease Is this a current diagnosis for this admission?: Yes (4) Hypertension Is this a current diagnosis for this admission?: Yes (5) Dyslipidemia Is this a current diagnosis for this admission?: Yes (6) History of prostate cancer Is this a current diagnosis for this admission?: Yes - Additional Information Resuscitation Status: Full Code Discharge Diet: As Tolerated Discharge Activity: Activity As Tolerated Prescriptions: Diltiazem HCl [Cardizem Cd 180 mg Capsule] 180 mg PO Q12 #60 capsule.cr Prednisone [Deltasone 20 mg Tablet] 40 mg PO DAILY #8 tablet Ipratropium/Albuterol Sulfate [Duoneb 3 ml Ampul] 3 ml NEB RTQ4HP PRN #60 vial.neb PRN Reason: Apixaban [Eliquis 5 mg Tablet] 5 mg PO BID #60 tablet Levofloxacin [Levaquin 750 mg Tablet] 750 mg PO DAILY #5 tablet Guaifenesin [Mucinex Sr 600 mg Tablet.sa] 600 mg PO Q12 #14 tablet.sa Levothyroxine Sodium [Synthroid 0.025 mg Tablet] 0.025 mg PO Q6AM #30 tablet Home Medications: Alendronate Sodium [Fosamax 70 mg Tablet] 1 tab PO .ONCE WEEKLY 12/30/18 Atorvastatin Calcium [Lipitor 40 mg Tablet] 40 mg PO DAILY 12/30/18 Losartan/Hydrochlorothiazide [Losartan-Hctz 100-25 mg Tab] 1 each PO DAILY 12/30/18 Apixaban [Eliquis 5 mg Tablet] 5 mg PO BID #60 tablet 01/03/19 Diltiazem HCl [Cardizem Cd 180 mg Capsule] 180 mg PO Q12 #60 capsule.cr 01/03/19 Guaifenesin [Mucinex Sr 600 mg Tablet.sa] 600 mg PO Q12 #14 tablet.sa 01/03/19 Ipratropium/Albuterol Sulfate [Duoneb 3 ml Ampul] 3 ml NEB RTQ4HP PRN #60 vial.neb 01/03/19 Levofloxacin [Levaquin 750 mg Tablet] 750 mg PO DAILY #5 tablet 01/03/19 Levothyroxine Sodium [Synthroid 0.025 mg Tablet] 0.025 mg PO Q6AM #30 tablet 0 01/03/19 Prednisone [Deltasone 20 mg Tablet] 40 mg PO DAILY #8 tablet 01/03/19 History of Present Illness History of Present Illness: TOY KHAN is a 68 year old male who has history of coronary artery disease status post CABG in 2009. Patient presents the emergency room due to acute onset of progressive shortness of breath started about 4 to 5 days ago. Today, I believe he was trying to air the tires of his car when he felt severely short of breath and came to the emergency room. He also complains of cough and wheezing. He denies fever or chest pain. In the emergency room he was in rapid A. fib. His chest x-ray suspicious for left lower lobe pneumonia. He was given Lasix in the emergency room with some improvement. Hospital Course Hospital Course: 12/31: Patient was seen and examined. He is feeling better today. His oxygen requirements decreased to 2 L. He is afebrile and his white count normalized. CT scan shows pneumonitis which is minimal. Troponins are negative. He is on Cardizem drip still and has heart rate significantly improved. 01/01: Patient was seen and examined. He continues to feel better. Still needing oxygen. Echocardiogram shows normal EF and moderate MR. His heart rate is slowing down. 01/02: Currently rate controlled. Still wheezing. Still on 2 L of oxygen. RN reports that he was dyspneic when he was walking in the hallways today. (1) Atrial fibrillation Echocardiogram shows normal EF and moderate MR. [id number] 4 magnesium 1.9 and TSH 4.74. Negative serial troponin. He was initially started on heparin drip. Now he is on Eliquis. Initially was started on Cardizem drip. Then, Toprol in anticipation of stoppi ng the drip later. Due to wheezing we stopped Toprol and Cardizem drip and started oral Cardizem CD. (2) Pneumonia Patient was started on IV ceftriaxone and azithromycin empirically. Reviewed CT scan of the chest. Cultures so far negative. We switched to oral Levaquin. Continue scheduled DuoNeb and albuterol as needed. we increased prednisone to 40 mg daily. 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 (3) Coronary artery disease Continue home medications (4) Hypertension Continue home medications. Monitor blood pressure (5) Dyslipidemia Continue statin treatment (6) History of prostate cancer Status post prostatectomy 2008 now doing well off O2. ok for d/c on PO cardizem, PO eliquis, short course of prednisone and PO Levaquin and duoneb prn Physical Exam Vital Signs: Temp Pulse Resp BP Pulse Ox 97.8 F 66 16 132/75 H 94 01/03/19 04:31 01/03/19 07:00 01/03/19 04:31 01/03/19 04:31 01/03/19 04:31 Intake & Output 01/02/19 01/03/19 01/04/19 06:59 06:59 06:59 Intake Total 1885 1972 Output Total 3025 1050 Balance -1140 922 Weight 203 lb 0.732 oz 198 lb 10.184 oz Exam: Patient is no acute distress Alert oriented to time place person No anxiety or depression Head: atraumatic normocephalic Pupils: are equal reactive Neck: is supple and trachea is central no lymphadenopathy No pharyngeal erythema or exudates Heart: A. fib Lungs: scattered bilateral wheezing Abdomen: nontender nondistended Neurological exam: unremarkable Musculoskeletal: No joint swelling or effusion chronic lower back pain and tende rness No suicidal or homicidal ideation Results Laboratory Results: 01/02/19 05:23 01/02/19 05:23 01/02/19 12:50 Carbonic Acid 1.13 HCO3/H2CO3 Ratio 21:1 ABG pH 7.42 ABG pCO2 37.7 ABG pO2 67.2 L ABG HCO3 23.8 ABG O2 Saturation 93.8 L ABG Base Excess -0.4 FiO2 21% 12/30/18 12/30/18 12/30/18 08:30 08:30 08:30 Creatine Kinase 292 H CK-MB (CK-2) 3.92 Troponin I < 0.012 NT-Pro-B Natriuret Pep 2840 H 12/30/18 12/30/18 12/30/18 14:34 20:41 23:44 Creatine Kinase CK-MB (CK-2) Troponin I 0.021 0.014 0.013 NT-Pro-B Natriuret Pep Impressions: Chest CT 12/30/18 00:00 IMPRESSION: Minimal patchy pneumonitis. Chest X-Ray 01/02/19 00:00 IMPRESSION: Status post CABG. Cardiomegaly. Left pleural thickening. Interval development of right basilar discoid atelectasis with right pleural th ickening or effusion. Qualifiers - * PATIENT BEING DISCHARGED WITH ANY OF THE FOLLOWING DIAGNOSIS: No Acute Heart Failure - Is this a Heart Failure Patient?: No Plan Time Spent: Greater than 30 Minutes - 34 min
[2019-01-03] MEDS ORDERED: DILTIAZEM HCL 180 MG CAPSULE.CR PO SCH (10:00)
[2019-01-03] MEDS: APIXABAN 5 MG TABLET PO SCH (10:21)
[2019-01-03] MEDS: LOSARTAN POTASSIUM 50 MG TABLET PO SCH (10:21)
[2019-01-03] MEDS: GUAIFENESIN 600 MG TABLET.SA PO SCH (10:21)
[2019-01-03] MEDS: LEVOFLOXACIN 750 MG TABLET PO SCH (10:21)
[2019-01-03] MEDS: HYDROCHLOROTHIAZIDE 25 MG TABLET PO SCH (10:22)
[2019-01-03] MEDS: PREDNISONE 20 MG TABLET PO SCH (10:22)
[2019-01-03 11:01] VITALS: BP 123/66
== END 2019-01-03 11:19 | disposition home or self-care (01) | DRG 308 ==
LOC: ER 08:22 → EH 12:06 → 3N 15:07 → 3S 01-02 16:18
PROVIDERS: ADMIT Hospitalist; ATTEND Family Medicine
DX: I48.0 Paroxysmal atrial fibrillation (principal); J18.9 Pneumonia, unspecified organism; J44.1 Chronic obstructive pulmonary disease with (acute) exacerbation; I10 Essential (primary) hypertension; E78.00 Pure hypercholesterolemia, unspecified; I25.10 Atherosclerotic heart disease of native coronary artery without angina pectoris; Z85.46 Personal history of malignant neoplasm of prostate; Z90.79 Acquired absence of other genital organ(s); Z95.5 Presence of coronary angioplasty implant and graft
CPT/HCPCS: 36415; 36600; 71045; 71046; 71250; 80048; 80053; 81001; 82272; 82550; 82553; 82803; 83605; 83735; 83880; 84443; 84484; 85025; 85027; 85610; 85730; 87040; 93005; 93010; 93306; 94640; 94660; 96374; 99285; J0456; J0696; J1644; J1940; J3490; J7060; J7512; J7620

== ENCOUNTER 2019-02-12 13:53 | Inpatient (IN) | payer MEDICARE ==
--- NOTE | 2019-02-12 15:07 | ER Document Report ---
ED Medical Screen (RME) - General Chief Complaint: Shortness Of Breath Stated Complaint: SHORTNESS OF BREATH Time Seen by Provider: 02/12/19 15:04 Primary Care Provider: NIKOLE QUIROGA PA-C [Primary Care Provider] - Follow up as needed Mode of Arrival: Ambulatory Information source: Patient Notes: 68-year-old male presented to ED for complaint of shortness of breath and difficulty breathing. He states 29 December he was in the hospital admitted for COPD and pneumonia. He states he got discharged and was doing better. States Friday he started getting short of breath difficulty breathing. Went to his doctor and he was told if he got any worse to come back to the emergency room. States he is much worse having trouble breathing. He does have rhonchi bilaterally in the lower lobes. Patient is alert and oriented he is able to speak in sentences. He does look like he is not comfortable. I have greeted and performed a rapid initial assessment of this patient. A comprehensive ED assessment and evaluation of the patient, analysis of test results and completion of medical decision making process will be conducted by an additional ED providers. TRAVEL OUTSIDE OF THE [place] IN LAST 30 DAYS: No - Related Data Allergies/Adverse Reactions: Penicillins Allergy (Verified 12/30/18 08:32) Past Medical History - Past Medical History Cardiac Medical History: Reports: Hx Hypercholesterolemia, Hx Hypertension Renal/ Medical History: Denies: Hx Peritoneal Dialysis Past Surgical History: Reports: Hx Abdominal Surgery - hernia surg, Hx Cardiac Surgery - triple bypass 2009, Hx Tonsillectomy - age 3, Hx Urinary Tract Surgery - prostate surg Physical Exam - Vital signs Vitals: Temp Pulse Resp BP Pulse Ox 97.5 F 100 32 H 165/80 H 94 02/12/19 14:13 02/12/19 14:13 02/12/19 14:13 02/12/19 14:13 02/12/19 14:13 Course - Vital Signs Vital signs: Temp Pulse Resp BP Pulse Ox 97.5 F 100 32 H 165/80 H 94 02/12/19 14:13 02/12/19 14:13 02/12/19 14:13 02/12/19 14:13 02/12/19 14:13 Doctor's Discharge - Discharge Referrals: NIKOLE QUIROGA PA-C [Primary Care Provider] - Follow up as needed
[2019-02-12 15:52] LABS: ABSOLUTE EOSINOPHILS # (AUTO) 0.3 10^3/uL (0.0-0.6); ABSOLUTE LYMPHOCYTES (AUTO) 1.1 10^3/uL (0.5-4.7); ABSOLUTE MONOCYTES (AUTO) 0.8 10^3/uL (0.1-1.4); ABSOLUTE NEUT (AUTO) 8.7 10^3/uL (1.7-8.2); BASOPHILS % (AUTO) 0.2 % (0-2); EOSINOPHILS % (AUTO) 2.4 % (0-6); HEMATOCRIT 37.3 % (37.9-51.0); HEMOGLOBIN 12.7 g/dL (13.5-17.0); LYMPHOCYTES % (AUTO) 10.4 % (13-45); MEAN CORPUSCULAR HEMOGLOBIN 28.7 pg (27.0-33.4); MEAN CORPUSCULAR HGB CONC 33.9 g/dL (32.0-36.0); MEAN CORPUSCULAR VOLUME 85 fl (80-97); PLATELET COUNT 246 10^3/uL (150-450); RED BLOOD COUNT 4.41 10^6/uL (4.35-5.55); RED CELL DISTRIBUTION WIDTH 14.1 % (11.5-14.0); TOTAL CELLS COUNTED % (AUTO) 100 %; WHITE BLOOD COUNT 10.9 10^3/uL (4.0-10.5)
--- NOTE | 2019-02-12 16:03 | RADIOLOGY REPORT (SQ) ---
EXAM DESCRIPTION: CHEST 2 VIEWS COMPLETED DATE/TIME: 02/12/2019 3:50 pm REASON FOR STUDY: short of breath, hx copd COMPARISON: 01/02/2019 NUMBER OF VIEWS: Two view TECHNIQUE: Frontal and lateral radiographic images of the chest acquired. LIMITATIONS: None. FINDINGS: LUNGS AND PLEURA: Chronic elevation right diaphragm. Chronic left pleural thickening. Merchant bsegmental airspace disease left lower lobe. No large effusions. MEDIASTINUM AND HILAR STRUCTURES: Stable heart size and mediastinal structures. HEART AND VASCULAR STRUCTURES: Stable appearance. BONES: No acute findings. HARDWARE: None in the chest. OTHER: No other significant finding. IMPRESSION: Atelectasis or early infiltrate left lower lobe. TECHNICAL DOCUMENTATION: JOB ID: [id number] [employer]- All Rights Reserved Reading location - IP/workstation name: [email or web address]
[2019-02-12] MEDS ORDERED: CEFEPIME 2 GM/D5W RTU 2 GM/50 ML RTUPB IV ONE (16:09)
[2019-02-12 16:10] LABS: ALBUMIN 4.4 g/dL (3.5-5.0); ALKALINE PHOSPHATASE 82 U/L (38-126); ANION GAP 8 (5-19); ASPARTATE AMINO TRANSFERASE 45 U/L (17-59); BILIRUBIN,DIRECT 0.2 mg/dL (0.0-0.4); BILIRUBIN,TOTAL 0.9 mg/dL (0.2-1.3); BLOOD UREA NITROGEN 16 mg/dL (7-20); CALCIUM 9.3 mg/dL (8.4-10.2); CARBON DIOXIDE 25 mmol/L (22-30); CHLORIDE 107 mmol/L (98-107); CREATINE KINASE 193 U/L (55-170); GLUCOSE 102 mg/dL (75-110); POTASSIUM 4.1 mmol/L (3.6-5.0); TOTAL PROTEIN 7.4 g/dL (6.3-8.2)
[2019-02-12] MEDS ORDERED: METHYLPREDNISOLONE INJ 125 MG/2 ML SDV IV ONE (16:16)
[2019-02-12] MEDS ORDERED: IPRATROPIUM/ALBUTEROL 0.5-2.5 MG/3 ML AMPUL NEB ONE (16:16)
[2019-02-12] MEDS: MAGNESIUM SULFATE/D5W 1 GM/100 ML RTUPB IV SCH ×2 (16:26→17:47)
--- NOTE | 2019-02-12 17:32 | RADIOLOGY REPORT (SQ) ---
EXAM DESCRIPTION: CTA CHEST COMPLETED DATE/TIME: 02/12/2019 5:01 pm REASON FOR STUDY: persistent cough , SOS, evaluate for PE COMPARISON: 9 TECHNIQUE: CT scan of the chest performed using helical scanning technique with dynamic intravenous contrast injection. Images reviewed with lung, soft tissue and bone windows. Reconstructed coronal and sagittal MPR images reviewed. Additional 3 dimensional post-processing performed to develop Maximal Intensity Projection images ([place] P). All images stored on PACS. All CT scanners at this facility use dose modulation, iterative reconstruction, and/or weight based d osing when appropriate to reduce radiation dose to as low as reasonably achievable (ALARA). [facility]: Dose Right [facility]: CareDose [facility]: Dose Right [facility]: Teradose 4D [facility]: Medicalodges CONTRAST TYPE AND DOSE: contrast/concentration: Isovue 350.00 mg/ml; Total Contrast Delivered: 65.0 ml; Total Saline Delivered: 80.0 ml Contrast bolus optimized for the pulmonary arteries. Not diagnostic for the aorta. RENAL FUNCTION: GFR > 60. RADIATION DOSE: CT Rad equipment meets quality standard of care and radiation dose reduction techniq ues were employed. CTDIvol: 14.9 - 18.6 mGy. DLP: 684 mGy-cm. . LIMITATIONS: None. FINDINGS: LUNGS AND PLEURA: No pneumothorax. Bilateral pleural effusions and basilar subsegmental atelectasis, left greater than right. AORTA AND GREAT VESSELS: No aneurysm. Contrast bolus not optimized for the aorta. HEART: No pericardial effusion. Prior CABG. PULMONARY ARTERIES: No emboli visualized in the main pulmonary arteries or the segmental branches. HILAR AND MEDIASTINAL STRUCTURES: Enlarged nodes. HARDWARE: CABG. UPPER ABDOMEN: No significant findings. Limited exam. THYROID AND OTHER SOFT TISSUES: No masses. No adenopathy. BONES: No acute finding. 3D MIPS: Confirm above findings. OTHER: No other significant finding. IMPRESSION: Bilateral pleural effusions and basilar subsegmental atelectasis, left greater than rig ht.No emboli visualized in the main pulmonary arteries or the segmental branches. COMMENT: Quality ID # [id number]: Final reports with documentation of one or more dose reduction techniques (e.g., Automated exposure control, adjustment of the mA and/or kV according to patient size, use of iterative reconstruction technique) TECHNICAL DOCUMENTATION: JOB ID: [id number] [place]-72 2010 [employer]- All Rights Reserved Reading location - IP/workstation name: [email or web address]
--- NOTE | 2019-02-12 18:09 | EKG REPORT ---
SEVERITY:- ABNORMAL ECG - ATRIAL FIBRILLATION, V-RATE 74-99 BORDERLINE T ABNORMALITIES, INFERIOR LEADS LVH : Confirmed by: Luis Ennis MD 12-Feb-2019 18:08:25
[2019-02-12] MEDS ORDERED: FUROSEMIDE INJ/PF 40 MG/4 ML SDV IV ONE (18:42)
[2019-02-12] MEDS ORDERED: DILTIAZEM HCL 180 MG CAPSULE.CR PO ONE ×2 (21:31→23:00)
--- NOTE | 2019-02-12 22:04 | ER Document Report ---
Entered by ABBEY OSCAR SCRIBE 02/12/19 1553 Acting as scribe for:KLEBER SINHA DO ED Respiratory Problem - General Chief Complaint: Breathing Difficulty Stated Complaint: SHORTNESS OF BREATH Time Seen by Provider: 02/12/19 15:04 Primary Care Provider: NIKOLE QUIROGA PA-C [Primary Care Provider] - Follow up as needed Mode of Arrival: Ambulatory Information source: Patient, [facility] Records Notes: Patient is a 68-year-old male who presents to the emergency department today with complaints of shortness of breath. Patient was admitted to this facility on 12/30 for pneumonia and was discharged on 01/03. Patient states when he was discharged he was feeling much better and remained well until about 4 days ago when the shortness of breath began again. Patient states over the last 4 days it has felt similar to when he had the pneumonia. Patient states he went to an urgent care yesterday and was told there was "inflammation in his lungs" and that if he got worse to come to the ED. Patient was last on antibiotics and prednisone 1 month ago. Patient denies being on home oxygen. Patient denies any pain. TRAVEL OUTSIDE OF THE [place] IN LAST 30 DAYS: No - Related Data Allergies/Adverse Reactions: Penicillins Allergy (Verified 12/30/18 08:32) Past Medical History - General Information source: Patient, [facility] Records - Social History Smoking Status: Former Smoker Cigarette use (# per day): No Chew tobacco use (# tins/day): No Frequency of alcohol use: None Drug Abuse: None Lives with: Family Family History: Reviewed & Not Pertinent Patient has suicidal ideation: No Patient has homicidal ideation: No - Past Medical History Cardiac Medical History: Reports: Hx Atrial Fibrillation, Hx Hypercholesterolemia, Hx Hypertension Pulmonary Medical History: Reports: Hx COPD, Hx Pneumonia Past Surgical History: Reports: Hx Abdominal Surgery - hernia surg, Hx Cardiac Surgery - triple bypass 2010, Hx Tonsillectomy - age 3, Hx Urinary Tract Surgery - prostate surg Review of Systems - Review of Systems Constitutional: No symptoms reported EENT: No symptoms reported Cardiovascular: No symptoms reported Respiratory: See HPI, Short of breath Gastrointestinal: No symptoms reported Genitourinary: No symptoms reported Male Genitourinary: No symptoms reported Musculoskeletal: No symptoms reported Skin: No symptoms reported Hematologic/Lymphatic: No symptoms reported Neurological/Psychological: No symptoms reported -: Yes All other systems reviewed and negative Physical Exam - Vital signs Vitals: Temp Pulse Resp BP Pulse Ox 97.5 F 100 32 H 165/80 H 94 02/12/19 14:13 02/12/19 14:13 02/12/19 14:13 02/12/19 14:13 02/12/19 14:13 Interpretation: Normal, Hypoxic, Tachypneic - General General appearance: Alert In distress: Mild - HEENT Head: Normocephalic, Atraumatic Eyes: Normal Pupils: PERRL - Respiratory Respiratory status: Respiratory distress Chest status: Nontender, Accessory muscle use Breath sounds: Rhonchi, Wheezing Chest palpation: Normal - Cardiovascular Rhythm: Regular Heart sounds: Normal auscultation Murmur: No - Abdominal Inspection: Normal Distension: No distension Bowel sounds: Normal Tenderness: Nontender Organomegaly: No organomegaly - Back Back: Normal, Nontender - Extremities General upper extremity: Normal inspection, Nontender, Normal color, Normal ROM, Normal temperature General lower extremity: Normal inspection, Nontender, Normal color, Normal ROM, Normal temperature, Normal weight bearing. No: Klever's sign - Neurological Neuro grossly intact: Yes Cognition: Normal Orientation: AAOx4 Marce Coma Scale Eye Opening: Spontaneous [place] Coma Scale Verbal: Oriented Marce Coma Scale Motor: Obeys Commands Marce Coma Scale Total: 15 Speech: Normal Motor strength normal: LUE, RUE, LLE, RLE Sensory: Normal - Psychological Associated symptoms: Normal affect, Normal mood - Skin Skin Temperature: Warm Skin Moisture: Dry Skin Color: Normal Course - Re-evaluation Re-evalutation: 02/12/19 21:59 Patient is a 68-year-old male with a history of A. fib, COPD, and CHF who comes in with difficulty breathing. Patient initially responded to DuoNeb and Solu- Medrol for wheezing but was unable to come off oxygen. Was given Lasix with excellent diuresis but drops to 85% off of 2 L of oxygen. He is not on oxygen at home. Appears that patient has not been taking medications. CTA performed to evaluate for PE. No evidence for pulmonary embolus or pneumonia; however, patient does have bilateral pleural effusions. Possible that patient becomes hypoxic, goes into A. fib and then decompensates from a heart failure perspective. Regardless, given his hypoxia and lack of oxygen at home, he will require admission. Patient is agreeable to this plan. Stable at the time of admission to the hospitalist service. - Vital Signs Vital signs: Temp Pulse Resp BP Pulse Ox 97.5 F 100 22 H 179/86 H 93 02/12/19 14:13 02/12/19 14:13 02/12/19 18:02 02/12/19 18:02 02/12/19 18:02 - Laboratory Result Diagrams: 02/12/19 15:36 02/12/19 15:36 Laboratory results interpreted by me: 02/12/19 02/12/19 02/12/19 15:36 15:36 15:36 WBC 10.9 H Hgb 12.7 L Hct 37.3 L RDW 14.1 H Lymph % (Auto) 10.4 L Absolute Neuts (auto) 8.7 H Seg Neutrophils % 80.0 H Creatine Kinase 193 H NT-Pro-B Natriuret Pep 3220 H TSH 02/12/19 15:36 WBC Hgb Hct RDW Lymph % (Auto) Absolute Neuts (auto) Seg Neutrophils % Creatine Kinase NT-Pro-B Natriuret Pep TSH 5.83 H - Diagnostic Test Radiology reviewed: Reports reviewed Critical Care Note - Critical Care Note Total time excluding time spent on procedures (mins): 40 - Evaluation and management of respiratory distress, multiple re-evaluations, coordination of admission, counseling of patient Discharge - Discharge Clinical Impression: Respiratory distress, COPD exacerbation Atrial fibrillation Qualifiers: Atrial fibrillation type: unspecified persistent Qualified Code(s): I48.19 - Other persistent atrial fibrillation; I48.1 - Persistent atrial fibrillation Acute exacerbation of CHF (congestive heart failure) Qualifiers: Heart failure type: unspecified Qualified Code(s): I50.9 - Heart failure, unspecified Condition: Stable Disposition: ADMITTED INPATIENT Admitting Provider: Staci (Hospitalist) Unit Admitted: Telemetry Referrals: NIKOLE QUIROGA PA-C [Primary Care Provider] - Follow up as needed I personally performed the services described in the documentation, reviewed and edited the documentation which was dictated to the scribe in my presence, and it accurately records my words and actions.
[2019-02-12] MEDS ORDERED: ONDANSETRON HCL INJ/PF 4 MG/2 ML SDV IV PRN (22:29)
[2019-02-12] MEDS ORDERED: MAG HYDROX/AL HYDROX/SIMETH SUSP 30 ML UDCUP PO PRN (22:29)
[2019-02-12] MEDS ORDERED: MAGNESIUM HYDROXIDE SUSP 30 ML UDCUP PO PRN (22:29)
[2019-02-12] MEDS ORDERED: METOPROLOL SUCCINATE 50 MG TAB.SR.24H PO ONE (22:42)
[2019-02-12] MEDS ORDERED: FAMOTIDINE 20 MG TABLET PO ONE (23:00)
[2019-02-12 23:41] LABS: CREATINE KINASE MB 3.29 ng/mL (<4.55)
[2019-02-12 23:48] LABS: TROPONIN I < 0.012 ng/mL
[2019-02-13] MEDS: HYDRALAZINE HCL INJ/PF 20 MG/1 ML SDV IV PRN (00:13)
--- NOTE | 2019-02-13 00:48 | PDOC H&P ---
History of Present Illness Admission Date/PCP: 02/12/2019 22:00 NIKOLE QUIROGA PA-C Patient complains of: Dyspnea History of Present Illness: TOY KHAN is a 68 year old male who presented to the emergency room with a 4-day history of dyspnea. Patient admits gradually worsening dyspnea over the last 4 days, to the point where it is now severe. His dyspnea is worsened by exertion and relieved by rest. He denies other associated or accompanying signs and symptoms. He admits prior similar episodes with COPD, heart failure and pneumonia in the past. He denies identification of any other aggravating or ameliorating factors for his dyspnea. In the emergency room he was found to be hypoxic with O2 sat of 85% on room air and improved to 93 to 95% with O2 per NC @ 2L/min. His CTA of the chest showed bilateral pleural effusions but was negative for pulmonary embolism or pneumonia. His white count was 10,900, his BNP was greater than 3200, his TSH was 5.83, his EKG showed him to be in controlled atrial fibrillation and the remainder of his evaluation was unremarkable compared to his baseline values. Patient was subsequently admitted to the hospital for further evaluation and treatment. Past Medical History Cardiac Medical History: Reports: Atrial Fibrillation, Congestive Heart Failure, Coronary Artery Disease, Hyperlipidema, Hypertension Denies: Myocardial Infarction Pulmonary Medical History: Reports: Chronic Obstructive Pulmonary Disease (COPD), Pneumonia, Respiratory Failure Denies: Asthma EENT Medical History: Denies: Cataracts, Ears - Hearing aids Neurological Medical History: Denies: Hemorrhagic CVA, Ischemic CVA, Seizures Endocrine Medical History: Reports: Hypothyroidism Denies: Diabetes Mellitus Type 1, Diabetes Mellitus Type 2, Hyperthyroidism, Obesity Renal/ Medical History: Denies: Chronic Kidney Disease, Nephrolithiasis Malignancy Medical History: Reports: Other - Prostate cancer GI Medical History: Denies: Cirrhosis, Crohn's Disease, Gastroesophageal Reflux Disease, Hepatitis, Peptic Ulcer Disease, Ulcerative Colitis Musculoskeltal Medical History: Reports: Other - Osteoporosis Denies: Arthritis, Gout Skin Medical History: Denies: Eczema, Psoriasis Psychiatric Medical History: Denies: Alcohol Dependency, Substance Abuse, Tobacco Dependency Traumatic Medical History: Reports: None Hematology: Denies: Anemia, Bleeding Tendencies Infectious Medical History: Reports: None Past Surgical History Past Surgical History: Reports: Cardiac Catheterization, Coronary Artery Bypass Graft, Herniorrhaphy, Tonsillectomy - age 3, Other - Prosthetic surgery Social History Information Source: Patient Lives with: Spouse/Significant other Smoking Status: Never Smoker Electronic Cigarette use?: No Frequency of Alcohol Use: None Hx Recreational Drug Use: No Drugs: None Hx Prescription Drug Abuse: No - Advance Directive Resuscitation Status: Full Code Surrogate healthcare decision maker:: Brandi Khan Family History Family History: CAD, DM, Hypertension, Malignancy Parental Family History Reviewed: Yes Children Family History Reviewed: No Sibling(s) Family History Reviewed.: Yes Medication/Allergy Home Medications: Alendronate Sodium [Fosamax 70 mg Tablet] 1 tab PO .ONCE WEEKLY 12/30/18 Atorvastatin Calcium [Lipitor 40 mg Tablet] 40 mg PO DAILY 12/30/18 Losartan/Hydrochlorothiazide [Losartan-Hctz 100-25 mg Tab] 1 each PO DAILY 12/30/18 Apixaban [Eliquis 5 mg Tablet] 5 mg PO BID #60 tablet 01/03/19 Diltiazem HCl [Cardizem Cd 180 mg Capsule] 180 mg PO Q12 #60 capsule.cr 01/03/19 Guaifenesin [Mucinex Sr 600 mg Tablet.sa] 600 mg PO Q12 #14 tablet.sa 01/03/19 Ipratropium/Albuterol Sulfate [Duoneb 3 ml Ampul] 3 ml [facility] [id number] PRN #60 vial.neb 01/03/19 Levofloxacin [Levaquin 750 mg Tablet] 750 mg PO DAILY #5 tablet 01/03/19 Levothyroxine Sodium [Synthroid 0.025 mg Tablet] 0.025 mg PO Q6AM #30 tablet 01/03/19 Prednisone [Deltasone 20 mg Tablet] 40 mg PO DAILY #8 tablet 01/03/19 Allergies/Adverse Reactions: Penicillins Allergy (Verified 12/30/18 08:32) Review of Systems Constitutional: ABSENT: chills, fever(s) Eyes: ABSENT: visual disturbances, other - Ocular pain Ears: ABSENT: hearing changes, other - Ear pain Nose, Mouth, and Throat: ABSENT: mouth pain, sore throat Cardiovascular: PRESENT: as per HPI, dyspnea on exertion. ABSENT: chest pain, edema, orthropnea, palpitations Respiratory: PRESENT: as per HPI, dyspnea. ABSENT: cough Gastrointestinal: ABSENT: abdominal pain, constipation, diarrhea, nausea, vomiting Genitourinary: ABSENT: dysuria, hematuria Musculoskeletal: ABSENT: back pain, joint swelling, muscle weakness Integumentary: ABSENT: pruritus, rash Neurological: ABSENT: confusion, convulsions, focal weakness, memory loss, syncope Psychiatric: ABSENT: anxiety, depression Endocrine: ABSENT: cold intolerance, heat intolerance Hematologic/Lymphatic: ABSENT: easy bleeding, easy bruising Allergic/Immunologic: ABSENT: seasonal rhinorrhea Physical Exam Vital Signs: Temp Pulse Resp BP Pulse Ox 97.5 F 100 22 H 179/86 H 93 02/12/19 14:13 02/12/19 14:13 02/12/19 18:02 02/12/19 18:02 02/12/19 18:02 Intake & Output 02/10/19 02/11/19 02/12/19 23:59 23:59 23:59 Intake Total 250 Balance 250 Weight 90.718 kg General appearance: PRESENT: no acute distress, cooperative, other - On O2 2 L/min via nasal cannula at the time of my evaluation Head exam: PRESENT: atraumatic, normocephalic Eye exam: PRESENT: conjunctiva pink. ABSENT: conjunctival injection, scleral icterus Ear exam: PRESENT: normal external ear exam. ABSENT: bleeding, drainage Mouth exam: PRESENT: dry mucosa, neck supple Neck exam: PRESENT: JVD - Mild bilateral. ABSENT: thyromegaly, tracheal deviation Respiratory exam: PRESENT: decreased breath sounds - Bilateral bases, rales - Bilateral bases, symmetrical, unlabored, other - On O2 at 2 L/min per nasal cannula Cardiovascular exam: PRESENT: gallop - Faint S4 gallop, irregular rhythm - I rregularly irregular rate and rhythm. ABSENT: clicks, rubs Pulses: PRESENT: normal radial pulses, normal dorsalis pedis pul Vascular exam: PRESENT: normal capillary refill. ABSENT: pallor GI/Abdominal exam: PRESENT: normal bowel sounds, soft Rectal exam: PRESENT: deferred Extremities exam: PRESENT: pedal edema, +1 edema - 1+ pitting edema bilateral. ABSENT: joint swelling Musculoskeletal exam: ABSENT: deformity, dislocation Neurological exam: PRESENT: alert, oriented to person, oriented to place, oriented to time, oriented to situation, CN II-XII grossly intact. ABSENT: motor sensory deficit Psychiatric exam: PRESENT: appropriate affect, normal mood Skin exam: PRESENT: dry, intact, warm. ABSENT: jaundice, rash, urticaria Results Laboratory Results: 02/12/19 15:36 02/12/19 15:36 02/12/19 02/12/19 02/12/19 15:36 15:36 15:36 WBC 10.9 H RBC 4.41 Hgb 12.7 L Hct 37.3 L MCV 85 MCH 28.7 MCHC 33.9 RDW 14.1 H Plt Count 246 Seg Neutrophils % 80.0 H Sodium 140.2 Potassium 4.1 Chloride 107 Carbon Dioxide 25 Anion Gap 8 BUN 16 Creatinine 1.13 Est GFR ( Amer) > 60 Glucose 102 Lactic Acid Calcium 9.3 Total Bilirubin 0.9 AST 45 Alkaline Phosphatase 82 Total Protein 7.4 Albumin 4.4 Lipase 69.1 TSH 5.83 H 02/12/19 16:13 WBC RBC Hgb Hct MCV MCH MCHC RDW Plt Count Seg Neutrophils % Sodium Potassium Chloride Carbon Dioxide Anion Gap BUN Creatinine Est GFR ( Amer) Glucose Lactic Acid 1.0 Calcium Total Bilirubin AST Alkaline Phosphatase Total Protein Albumin Lipase TSH 02/12/19 02/12/19 02/12/19 15:36 15:36 15:36 Creatine Kinase 193 H CK-MB (CK-2) 4.54 Troponin I < 0.012 NT-Pro-B Natriuret Pep 02/12/19 15:36 Creatine Kinase CK-MB (CK-2) Troponin I NT-Pro-B Natriuret Pep 3220 H Impressions: Chest X-Ray 02/12/19 15:07 IMPRESSION: Atelectasis or early infiltrate left lower lobe. Chest/Abdomen CTA 02/12/19 16:17 IMPRESSION: Bilateral pleural effusions and basilar subsegmental atelectasis, left greater than right.No emboli visualized in the main pulmonary arteries or the segmental branches. Assessment and Plan - Diagnosis (1) Acute on chronic diastolic congestive heart failure Is this a current diagnosis for this admission?: Yes (2) Hypothyroidism Qualifiers: Hypothyroidism type: unspecified Qualified Code(s): E03.9 - Hypothyroidism, unspecified Is this a current diagnosis for this admission?: Yes (3) Atrial fibrillation Qualifiers: Atrial fibrillation type: unspecified chronic Qualified Code(s): I48.20 - Chronic atrial fibrillation, unspecified; I48.2 - Chronic atrial fibrillation Is this a current diagnosis for this admission?: Yes (4) Coronary artery disease Qualifiers: Coronary Disease-Associated Artery/Lesion type: [place] artery [place] vs. transplanted heart: [place] heart Associated angina: without angina Qualified Code(s): I25.10 - Atherosclerotic heart disease of [place] coronary artery without angina pectoris Is this a current diagnosis for this admission?: Yes (5) Hypertension Qualifiers: Hypertension type: essential hypertension Qualified Code(s): I10 - Essential (primary) hypertension Is this a current diagnosis for this admission?: Yes (6) Hyperlipidemia Qualifiers: Hyperlipidemia type: unspecified Qualified Code(s): E78.5 - Hyperlipidemia, unspecified Is this a current diagnosis for this admission?: Yes (7) Chronic anticoagulation Is this a current diagnosis for this admission?: Yes - Plan Summary Summary: Patient will be admitted to a telemetry bed and serial cardiac enzymes will be performed to evaluate for possible myocardial ischemia or injury. His medicatio ns will be adjusted for better control and treatment of his diastolic congestive heart failure. His thyroid hormone replacement will be increased to an appropriate level. He will be continued on his usual medications for hyperlipidemia and a lipid profile will be obtained. He will be continued on a cardiac diet and his blood pressure and other vital signs be monitored closely throughout his hospital course. He will be continued on his anticoagulant therapy as recently prescribed. Daily CBCs, metabolic profiles and magnesium levels will be obtained as part of his ongoing evaluation. - Time Time Spent with patient: 25-34 minutes Medications reviewed and adjusted accordingly: Yes Anticipated discharge: Home - Inpatient Certification Based on my medical assessment, after consideration of the patient's comorbidities, presenting symptoms, or acuity I expect that the services needed warrant INPATIENT care.: Yes I certify that my determination is in accordance with my understanding of Medicare's requirements for reasonable and necessary INPATIENT services [42 CFR 412.3e].: Yes Medical Necessity: Significant Comorbidiites Make Outpatient Treatment Too Risky, Need Close Monitoring Due to Risk of Patient Decompensation, Need For Continuous Telemetry Monitoring, Risk of Complication if Not Cared For in Hospi [facility]
[2019-02-13] MEDS ORDERED: METOPROLOL SUCCINATE 50 MG TAB.SR.24H PO ONE ×2 (00:49→00:51)
[2019-02-13] MEDS: ACETAMINOPHEN 325 MG TABLET PO PRN ×2 (00:49→21:07)
[2019-02-13] MEDS ORDERED: LEVOTHYROXINE SODIUM 0.075 MG TABLET ONE (05:17)
[2019-02-13] MEDS: LEVOTHYROXINE SODIUM 0.075 MG TABLET PO SCH (05:20)
[2019-02-13 06:31] LABS: ANION GAP 10 (5-19); BLOOD UREA NITROGEN 18 mg/dL (7-20); CALCIUM 9.1 mg/dL (8.4-10.2); CARBON DIOXIDE 22 mmol/L (22-30); CHLORIDE 109 mmol/L (98-107); CHOLESTEROL 135.44 mg/dL (0-200); CREATINE KINASE 107 U/L (55-170); GLUCOSE 174 mg/dL (75-110); POTASSIUM 4.4 mmol/L (3.6-5.0); TRIGLYCERIDES 42 mg/dL (<150)
[2019-02-13 06:32] LABS: ABSOLUTE LYMPHOCYTES (AUTO) 0.5 10^3/uL (0.5-4.7); ABSOLUTE MONOCYTES (AUTO) 0.1 10^3/uL (0.1-1.4); ABSOLUTE NEUT (AUTO) 8.3 10^3/uL (1.7-8.2); HEMATOCRIT 34.4 % (37.9-51.0); HEMOGLOBIN 11.9 g/dL (13.5-17.0); LYMPHOCYTES % (AUTO) 5.1 % (13-45); MEAN CORPUSCULAR HEMOGLOBIN 28.5 pg (27.0-33.4); MEAN CORPUSCULAR HGB CONC 34.5 g/dL (32.0-36.0); MEAN CORPUSCULAR VOLUME 83 fl (80-97); MONOCYTES % (AUTO) 1.2 % (3-13); PLATELET COUNT 237 10^3/uL (150-450); RED BLOOD COUNT 4.16 10^6/uL (4.35-5.55); SEGMENTED NEUTROPHILS % (AUTO) 93.7 % (42-78); TOTAL CELLS COUNTED % (AUTO) 100 %; WHITE BLOOD COUNT 8.9 10^3/uL (4.0-10.5)
[2019-02-13 06:42] LABS: DIRECT LDL 94 mg/dL (<100)
[2019-02-13 06:49] LABS: TROPONIN I < 0.012 ng/mL
[2019-02-13] MEDS: FAMOTIDINE 20 MG TABLET PO SCH ×2 (09:29→21:07)
[2019-02-13] MEDS: APIXABAN 5 MG TABLET PO SCH ×2 (09:29→21:07)
[2019-02-13] MEDS: DOCUSATE SODIUM 100 MG CAPSULE PO SCH (09:29)
[2019-02-13] MEDS: LOSARTAN POTASSIUM 50 MG TABLET PO SCH (09:29)
[2019-02-13] MEDS: TORSEMIDE 20 MG TABLET PO SCH (09:29)
[2019-02-13] MEDS ORDERED: METOPROLOL SUCCINATE 50 MG TAB.SR.24H PO SCH ×3 (10:00)
[2019-02-13] MEDS ORDERED: METOPROLOL TARTRATE 100 MG TABLET PO SCH (10:00)
[2019-02-13] MEDS ORDERED: DILTIAZEM HCL 180 MG CAPSULE.CR PO SCH (10:00)
[2019-02-13] MEDS ORDERED: INFLUENZA QUAD (6MOS+) 2019-20 VAC 0.5 ML SYR IM ONE (10:00)
--- NOTE | 2019-02-13 10:32 | PDOC PROGRESS REPORT ---
Subjective Progress Note for:: 02/13/19 Subjective:: The patient is resting in bed. He is still somewhat short of breath. He is short of breath by the end of sentences. He states that he would get extremely short of breath with walking and that was 1 of the symptoms that brought him to the hospital. He does feel little better this morning. Reason For Visit: ACUTE ON CHRONIC DIASTOLIC CHF Physical Exam Vital Signs: Temp Pulse Resp BP Pulse Ox 97.6 F 68 18 134/61 H 94 02/13/19 07:18 02/13/19 07:18 02/13/19 07:18 02/13/19 07:18 02/13/19 07:18 Intake & Output 02/12/19 02/13/19 02/14/19 06:59 06:59 05:59 Intake Total 510 Output Total 100 Balance 410 Weight 97.3 kg General appearance: PRESENT: cooperative, mild distress, well-developed Head exam: PRESENT: atraumatic, normocephalic Eye exam: PRESENT: conjunctiva pink. ABSENT: scleral icterus Ear exam: PRESENT: normal external ear exam. ABSENT: bleeding, drainage Mouth exam: PRESENT: moist, tongue midline Respiratory exam: PRESENT: rales, symmetrical, tachypnea - Mild. ABSENT: rhonchi, wheezes Cardiovascular exam: PRESENT: irregular rhythm. ABSENT: diastolic murmur, systolic murmur GI/Abdominal exam: PRESENT: normal bowel sounds, soft. ABSENT: distended, guarding, tenderness Rectal exam: PRESENT: deferred Gentrourinary exam: ABSENT: indwelling catheter Extremities exam: ABSENT: joint swelling, pedal edema, tenderness Musculoskeletal exam: PRESENT: full ROM, normal inspection. ABSENT: deformity, tenderness Neurological exam: PRESENT: alert, awake, oriented to person, oriented to place, oriented to time, oriented to situation, CN II-XII grossly intact. ABSENT: motor sensory deficit Psychiatric exam: PRESENT: appropriate affect, normal mood. ABSENT: agitated, anxious Focused psych exam: ABSENT: delusional, restlessness Skin exam: PRESENT: dry, warm. ABSENT: rash Results Laboratory Results: 02/13/19 05:54 02/13/19 05:54 02/12/19 02/12/19 02/12/19 15:36 15:36 15:36 WBC 10.9 H RBC 4.41 Hgb 12.7 L Hct 37.3 L MCV 85 MCH 28.7 MCHC 33.9 RDW 14.1 H Plt Count 246 Seg Neutrophils % 80.0 H Sodium 140.2 Potassium 4.1 Chloride 107 Carbon Dioxide 25 Anion Gap 8 BUN 16 Creatinine 1.13 Est GFR ( Amer) > 60 Glucose 102 Lactic Acid Calcium 9.3 Magnesium Total Bilirubin 0.9 AST 45 Alkaline Phosphatase 82 Total Protein 7.4 Albumin 4.4 Triglycerides Cholesterol LDL Cholesterol Direct VLDL Cholesterol HDL Cholesterol Lipase 69.1 TSH 5.83 H 02/12/19 02/13/19 02/13/19 16:13 05:54 05:54 WBC 8.9 RBC 4.16 L Hgb 11.9 L Hct 34.4 L MCV 83 MCH 28.5 MCHC 34.5 RDW 14.0 Plt Count 237 Seg Neutrophils % 93.7 H Sodium 140.7 Potassium 4.4 Chloride 109 H Carbon Dioxide 22 Anion Gap 10 BUN 18 Creatinine 1.05 Est GFR ( Amer) > 60 Glucose 174 H Lactic Acid 1.0 Calcium 9.1 Magnesium 2.3 Total Bilirubin AST Alkaline Phosphatase Total Protein Albumin Triglycerides 42 Cholesterol 135.44 LDL Cholesterol Direct 94 VLDL Cholesterol 8.0 L HDL Cholesterol 39 L Lipase TSH 02/12/19 02/12/19 02/12/19 15:36 15:36 15:36 Creatine Kinase 193 H CK-MB (CK-2) 4.54 Troponin I < 0.012 NT-Pro-B Natriuret Pep 02/12/19 02/12/19 02/12/19 15:36 23:00 23:00 Creatine Kinase 143 CK-MB (CK-2) 3.29 Troponin I < 0.012 NT-Pro-B Natriuret Pep 3220 H 02/13/19 02/13/19 05:54 05:54 Creatine Kinase 107 CK-MB (CK-2) 2.40 Troponin I < 0.012 NT-Pro-B Natriuret Pep Impressions: Chest X-Ray 02/12/19 15:07 IMPRESSION: Atelectasis or early infiltrate left lower lobe. Chest/Abdomen CTA 02/12/19 16:17 IMPRESSION: Bilateral pleural effusions and basilar subsegmental atelectasis, left greater than right.No emboli visualized in the main pulmonary arteries or the segmental branches. Assessment and Plan - Diagnosis (1) Acute on chronic diastolic congestive heart failure Is this a current diagnosis for this admission?: Yes Plan: February 13, 2019-we are changing the patient's diltiazem to metoprolol. He is already on an angiotensin receptor elkin. We will increase his diuresis with torsemide. Monitor intake and output as well as electrolytes and kidney function. (2) Pneumonia Qualifiers: Pneumonia type: due to unspecified organism Laterality: left Lung locat ion: lower lobe of lung Qualified Code(s): J18.1 - Lobar pneumonia, unspecified organism Is this a current diagnosis for this admission?: Yes Plan: February 13, 2019-left lower lobe pneumonia seen on x-ray. He did not have a markedly elevated white blood cell count but he did have a left shift. The left shift is more pronounced today. I will continue antibiotic therapy with ceftriaxone and azithromycin. (3) Atrial fibrillation Qualifiers: Atrial fibrillation type: permanent Qualified Code(s): I48.21 - Permanent atrial fibrillation Is this a current diagnosis for this admission?: Yes Plan: February 13, 2019-we are switching from diltiazem to metoprolol to maintain rate control but also help with his heart failure. Will exchange medications slowly. We will continue telemetry monitoring. (4) Chronic anticoagulation Is this a current diagnosis for this admission?: Yes Plan: February 13, 2019-continue apixaban (5) Hyperlipidemia Qualifiers: Hyperlipidemia type: unspecified Qualified Code(s): E78.5 - Hyperlipidemia, unspecified Is this a current diagnosis for this admission?: Yes Plan: February 13, 2019-continue statin therapy (6) Hypothyroidism Qualifiers: Hypothyroidism type: unspecified Qualified Code(s): E03.9 - Hypothyroidism, unspecified Is this a current diagnosis for this admission?: Yes Plan: February 13, 2019-continue levothyroxine. The patient was discharged on 25 mcg. He is now on 75 mcg. (7) Coronary artery disease Qualifiers: Coronary Disease-Associated Artery/Lesion type: [place] artery [place] vs. transplanted heart: [place] heart Associated angina: without angina Qualified Code(s): I25.10 - Atherosclerotic heart disease of [place] coronary artery without angina pectoris Is this a current diagnosis for this admission?: Yes Plan: February 13, 2019-history of coronary artery disease status post coronary artery bypass surgery. Continue cardiac regimen. Monitor for any symptoms of acute coronary syndrome. Troponin studies have been negative. - Plan Summary Summary: Patient will be admitted to a telemetry bed and serial cardiac enzymes will be performed to evaluate for possible myocardial ischemia or injury. His medications will be adjusted for better control and treatment of his diastolic congestive heart failure. His thyroid hormone replacement will be increased to an appropriate level. He will be continued on his usual medications for hyperlipidemia and a lipid profile will be obtained. He will be continued on a cardiac diet and his blood pressure and other vital signs be monitored closely throughout his hospital course. He will be continued on his anticoagulant therapy as recently prescribed. Daily CBCs, metabolic profiles and magnesium levels will be obtained as part of his ongoing evaluation. - Time Time Spent with patient: 15-24 minutes Medications reviewed and adjusted accordingly: Yes Anticipated discharge: Home
[2019-02-13 13:01] LABS: CREATINE KINASE MB 2.38 ng/mL (<4.55)
[2019-02-13 13:05] LABS: TROPONIN I < 0.012 ng/mL
[2019-02-13] MEDS: METOPROLOL TARTRATE 50 MG TABLET PO SCH (21:07)
[2019-02-13] MEDS: ATORVASTATIN CALCIUM 40 MG TABLET PO SCH (21:07)
[2019-02-13] MEDS: AZITHROMYCIN 500 MG in DEXTROSE 5%-WATER 250 ML IV SCH (22:05)
[2019-02-14] MEDS: LEVOTHYROXINE SODIUM 0.075 MG TABLET PO SCH (05:14)
[2019-02-14] MEDS: LEVALBUTEROL HCL NEB 0.63 MG/3 ML AMPUL NEB PRN ×2 (05:35→09:54)
[2019-02-14 06:10] LABS: ANION GAP 11 (5-19); BLOOD UREA NITROGEN 34 mg/dL (7-20); CALCIUM 9.3 mg/dL (8.4-10.2); CARBON DIOXIDE 23 mmol/L (22-30); CHLORIDE 108 mmol/L (98-107); GLUCOSE 108 mg/dL (75-110); POTASSIUM 4.3 mmol/L (3.6-5.0)
[2019-02-14 06:18] LABS: ABSOLUTE LYMPHOCYTES (AUTO) 1.4 10^3/uL (0.5-4.7); ABSOLUTE MONOCYTES (AUTO) 1.2 10^3/uL (0.1-1.4); BASOPHILS % (AUTO) 0.2 % (0-2); EOSINOPHILS % (AUTO) 0.3 % (0-6); HEMATOCRIT 34.9 % (37.9-51.0); HEMOGLOBIN 11.9 g/dL (13.5-17.0); LYMPHOCYTES % (AUTO) 7.9 % (13-45); MEAN CORPUSCULAR HEMOGLOBIN 28.1 pg (27.0-33.4); MEAN CORPUSCULAR VOLUME 83 fl (80-97); PLATELET COUNT 273 10^3/uL (150-450); RED BLOOD COUNT 4.21 10^6/uL (4.35-5.55); RED CELL DISTRIBUTION WIDTH 14.6 % (11.5-14.0); SEGMENTED NEUTROPHILS % (AUTO) 84.6 % (42-78); TOTAL CELLS COUNTED % (AUTO) 100 %; WHITE BLOOD COUNT 17.8 10^3/uL (4.0-10.5)
[2019-02-14] MEDS: HYDRALAZINE HCL INJ/PF 20 MG/1 ML SDV IV PRN (08:54)
[2019-02-14] MEDS: APIXABAN 5 MG TABLET PO SCH ×2 (09:02→21:15)
[2019-02-14] MEDS: TORSEMIDE 20 MG TABLET PO SCH (09:02)
[2019-02-14] MEDS: DOCUSATE SODIUM 100 MG CAPSULE PO SCH (09:03)
[2019-02-14] MEDS: FAMOTIDINE 20 MG TABLET PO SCH ×2 (09:03→21:14)
[2019-02-14] MEDS: METOPROLOL TARTRATE 50 MG TABLET PO SCH (09:03)
[2019-02-14] MEDS: LOSARTAN POTASSIUM 50 MG TABLET PO SCH (09:04)
[2019-02-14] MEDS: CEFTRIAXONE 1 GM/D5W RTU 1 GM/50 ML RTUPB IV SCH (09:09)
[2019-02-14] MEDS ORDERED: METOPROLOL TARTRATE PF/INJ 5 MG/5 ML SDV IV PRN (09:22)
[2019-02-14] MEDS ORDERED: METOPROLOL TARTRATE 50 MG TABLET PO ONE (09:22)
[2019-02-14] MEDS ORDERED: METOPROLOL TARTRATE PF/INJ 5 MG/5 ML SDV IV ONE (09:31)
[2019-02-14] MEDS: AMLODIPINE BESYLATE 10 MG TABLET PO SCH (09:45)
[2019-02-14] MEDS ORDERED: FUROSEMIDE INJ/PF 40 MG/4 ML SDV IV ONE (09:54)
[2019-02-14] MEDS ORDERED: FUROSEMIDE INJ/PF 40 MG/4 ML SDV ONE (09:55)
--- NOTE | 2019-02-14 10:12 | PDOC PROGRESS REPORT ---
Subjective Progress Note for:: 02/14/19 Subjective:: Call to the patient's bedside. He is tachycardic and short of breath. We are in the midst of adjusting his medications. He stated that this started this morning. Reason For Visit: ACUTE ON CHRONIC DIASTOLIC CHF Physical Exam Vital Signs: Temp Pulse Resp BP Pulse Ox 98.2 F 108 H 30 H 140/106 H 94 02/14/19 08:59 02/14/19 09:54 02/14/19 09:54 02/14/19 08:59 02/14/19 09:54 Intake & Output 02/13/19 02/14/19 02/15/19 07:59 06:59 06:59 Intake Total Output Total Balance Weight General appearance: PRESENT: cooperative, severe distress, well-developed Head exam: PRESENT: atraumatic, normocephalic Ear exam: PRESENT: normal external ear exam. ABSENT: bleeding, drainage Mouth exam: PRESENT: dry mucosa, tongue midline Respiratory exam: PRESENT: rales - At bases, symmetrical, tachypnea, wheezes - Sporadic in upper lobes, other - Unable to complete sentences due to dyspnea. ABSENT: rhonchi Cardiovascular exam: PRESENT: irregular rhythm, tachycardia GI/Abdominal exam: PRESENT: normal bowel sounds, soft. ABSENT: distended, tenderness Rectal exam: PRESENT: deferred Gentrourinary exam: ABSENT: indwelling catheter Musculoskeletal exam: PRESENT: ambulatory, full ROM, normal inspection Neurological exam: PRESENT: alert, awake, oriented to person, oriented to place, oriented to time, oriented to situation, CN II-XII grossly intact Psychiatric exam: PRESENT: anxious, appropriate affect - Appropriate for clinical condition. ABSENT: agitated Focused psych exam: ABSENT: delusional, restlessness Results Laboratory Results: 02/14/19 05:28 02/14/19 05:28 02/14/19 02/14/19 05:28 05:28 WBC 17.8 H RBC 4.21 L Hgb 11.9 L Hct 34.9 L MCV 83 MCH 28.1 MCHC 34.0 RDW 14.6 H Plt Count 273 Seg Neutrophils % 84.6 H Sodium 141.7 Potassium 4.3 Chloride 108 H Carbon Dioxide 23 Anion Gap 11 BUN 34 H Creatinine 1.42 H Est GFR ( Amer) > 60 Glucose 108 Calcium 9.3 Magnesium 2.2 02/12/19 02/12/19 02/12/19 15:36 15:36 15:36 Creatine Kinase 193 H CK-MB (CK-2) 4.54 Troponin I < 0.012 NT-Pro-B Natriuret Pep 02/12/19 02/12/19 02/12/19 15:36 23:00 23:00 Creatine Kinase 143 CK-MB (CK-2) 3.29 Troponin I < 0.012 NT-Pro-B Natriuret Pep 3220 H 02/13/19 02/13/19 02/13/19 05:54 05:54 12:21 Creatine Kinase 107 89 CK-MB (CK-2) 2.40 Troponin I < 0.012 NT-Pro-B Natriuret Pep 02/13/19 12:21 Creatine Kinase CK-MB (CK-2) 2.38 Troponin I < 0.012 NT-Pro-B Natriuret Pep Impressions: Chest X-Ray 02/12/19 15:07 IMPRESSION: Atelectasis or early infiltrate left lower lobe. Chest/Abdomen CTA 02/12/19 16:17 IMPRESSION: Bilateral pleural effusions and basilar subsegmental atelectasis, left greater than right.No emboli visualized in the main pulmonary arteries or the segmental branches. Assessment and Plan - Diagnosis (1) Acute on chronic diastolic congestive heart failure Is this a current diagnosis for this admission?: Yes Plan: February 13, 2019-we are changing the patient's diltiazem to metoprolol. He is already on an angiotensin receptor elkin. We will increase his diuresis with torsemide. Monitor intake and output as well as electrolytes and kidney function. 02/14/2019-he appears to be short of breath mostly due to failure. We have continued his RABIA inhibitor and he has been on torsemide instead of the hydrochlorothiazide. He also has a history of COPD. He will get additional furosemide this morning. He has had a net positive fluid balance of over 1 L over the past 48 hours. (2) Pneumonia Qualifiers: Pneumonia type: due to unspecified organism Laterality: left Lung location: lower lobe of lung Qualified Code(s): J18.1 - Lobar pneumonia, unspecified organism Is this a current diagnosis for this admission?: Yes Plan: February 13, 2019-left lower lobe pneumonia seen on x-ray. He did not have a markedly elevated white blood cell count but he did have a left shift. The left shift is more pronounced today. I will continue antibiotic therapy with ceftriaxone and azithromycin. 02/14/2019-continue dual antibiotic therapy (3) Atrial fibrillation Qualifiers: Atrial fibrillation type: permanent Qualified Code(s): I48.21 - Permanent atrial fibrillation Is this a current diagnosis for this admission?: Yes Plan: February 13, 2019-we are switching from diltiazem to metoprolol to maintain rate control but also help with his heart failure. Will exchange medications slowly. We will continue telemetry monitoring. 02/14/2019-having difficulty controlling his rate. We are trying to switch from calcium channel elkin to beta-elkin for heart failure. He was quite bradycardic (in the 40s) yesterday and is now quite tachycardic. He will get IV Lopressor and I will increase his metoprolol to 150 mg twice daily. We will eventually consolidate to metoprolol succinate. (4) Chronic anticoagulation Is this a current diagnosis for this admission?: Yes Plan: February 13, 2019-continue apixaban 02/14/2019-continue apixaban and monitor for bleeding. (5) Hyperlipidemia Qualifiers: Hyperlipidemia type: unspecified Qualified Code(s): E78.5 - Hyperlipidemia, unspecified Is this a current diagnosis for this admission?: Yes Plan: February 13, 2019-continue statin therapy 02/14/2019-continue atorvastatin (6) Hypothyroidism Qualifiers: Hypothyroidism type: unspecified Qualified Code(s): E03.9 - Hypothyroidism, unspecified Is this a current diagnosis for this admission?: Yes Plan: February 13, 2019-continue levothyroxine. The patient was discharged on 25 mcg. He is now on 75 mcg. 02/14/2019-I reviewed the home medication summary. The patient is on 25 mcg of levothyroxine. The 75 mcg dose that was ordered could be contributing to his rapid ventricular response. Despite a slightly increased TSH I am going to ch sarthak his levothyroxine back to 25 mcg. (7) Coronary artery disease Qualifiers: Coronary Disease-Associated Artery/Lesion type: elim [place] artery [place] vs. transplanted heart: [place] heart Associated angina: without angina Qualified Code(s): I25.10 - Atherosclerotic heart disease of [place] coronary artery without angina pectoris Is this a current diagnosis for this admission?: Yes Plan: February 13, 2019-history of coronary artery disease status post coronary artery bypass surgery. Continue cardiac regimen. Monitor for any symptoms of acute coronary syndrome. Troponin studies have been negative. 02/14/2019-currently without chest pain however he is having shortness of breath as we adjust his medicines and we will need to monitor closely due to his underlying coronary artery disease. - Plan Summary Summary: Patient will be admitted to a telemetry bed and serial cardiac enzymes will be performed to evaluate for possible myocardial ischemia or injury. His medications will be adjusted for better control and treatment of his diastolic congestive heart failure. His thyroid hormone replacement will be increased to an appropriate level. He will be continued on his usual medications for hyperlipidemia and a lipid profile will be obtained. He will be continued on a cardiac diet and his blood pressure and other vital signs be monitored closely throughout his hospital course. He will be continued on his anticoagulant therapy as recently prescribed. Daily CBCs, metabolic profiles and magnesium levels will be obtained as part of his ongoing evaluation. - Time Time Spent with patient: 15-24 minutes Medications reviewed and adjusted accordingly: Yes
--- NOTE | 2019-02-14 11:56 | RADIOLOGY REPORT (SQ) ---
EXAM DESCRIPTION: CHEST SINGLE VIEW COMPLETED DATE/TIME: 02/14/2019 11:32 am REASON FOR STUDY: Increased shortness of breath COMPARISON: 02/12/2019 FINDINGS: Single-view chest AP portable upright. Extremely low lung volumes. Persistent basilar subsegmental atelectasis versus infiltrate. Minimal unchanged vascular congestion. No pneumothorax. Overall similar appearance compared to prior. TECHNICAL DOCUMENTATION: JOB ID: [id number] Reading location - IP/workstation name: [email or web address]
[2019-02-14] MEDS: FLUTICASONE/UMECLIDIN/VILANTER 100-62.5-25 MCG/DOSE IH SCH (12:29)
[2019-02-14] MEDS: IPRATROPIUM/ALBUTEROL 0.5-2.5 MG/3 ML AMPUL NEB SCH (16:01)
[2019-02-14] MEDS: ACETAMINOPHEN 325 MG TABLET PO PRN (19:36)
[2019-02-14] MEDS: AZITHROMYCIN 500 MG in DEXTROSE 5%-WATER 250 ML IV SCH (21:14)
[2019-02-14] MEDS: METOPROLOL TARTRATE 100 MG TABLET PO SCH (21:14)
[2019-02-14] MEDS: ATORVASTATIN CALCIUM 40 MG TABLET PO SCH (21:15)
[2019-02-15] MEDS: IPRATROPIUM/ALBUTEROL 0.5-2.5 MG/3 ML AMPUL NEB SCH ×3 (00:40→15:51)
[2019-02-15] MEDS: LEVOTHYROXINE SODIUM 0.025 MG TABLET PO SCH (05:16)
[2019-02-15] MEDS: ACETAMINOPHEN 325 MG TABLET PO PRN ×3 (05:19→20:01)
[2019-02-15] MEDS: DOCUSATE SODIUM 100 MG CAPSULE PO SCH (09:09)
[2019-02-15] MEDS: FAMOTIDINE 20 MG TABLET PO SCH ×2 (09:09→21:04)
[2019-02-15] MEDS: LOSARTAN POTASSIUM 50 MG TABLET PO SCH (09:09)
[2019-02-15] MEDS: AMLODIPINE BESYLATE 10 MG TABLET PO SCH (09:10)
[2019-02-15] MEDS: APIXABAN 5 MG TABLET PO SCH (09:10)
[2019-02-15] MEDS: METOPROLOL TARTRATE 100 MG TABLET PO SCH ×2 (09:10→21:04)
[2019-02-15] MEDS: CEFTRIAXONE 1 GM/D5W RTU 1 GM/50 ML RTUPB IV SCH (09:11)
[2019-02-15] MEDS: TORSEMIDE 20 MG TABLET PO SCH (10:48)
[2019-02-15] MEDS: FLUTICASONE/UMECLIDIN/VILANTER 100-62.5-25 MCG/DOSE IH SCH (10:49)
[2019-02-15] MEDS ORDERED: DIGOXIN INJ 0.5 MG/2 ML AMPULE IV ONE (11:00)
[2019-02-15] MEDS ORDERED: METHYLPREDNISOLONE INJ 125 MG/2 ML SDV IV ONE (11:15)
--- NOTE | 2019-02-15 11:45 | PDOC PROGRESS REPORT ---
Subjective Progress Note for:: 02/15/19 Subjective:: Patient still markedly short of breath. Slightly less so than yesterday. Still with rapid ventricular rate with underlying atrial fibrillation. Reason For Visit: ACUTE ON CHRONIC DIASTOLIC CHF Physical Exam Vital Signs: Temp Pulse Resp BP Pulse Ox 97.7 F 105 H 18 158/74 H 93 02/15/19 08:07 02/15/19 08:16 02/15/19 08:16 02/15/19 08:07 02/15/19 08:16 Intake & Output 02/14/19 02/15/19 02/16/19 06:59 06:59 06:59 Intake Total 2430 50 Output Total Balance 2430 50 Weight 99 kg General appearance: PRESENT: cooperative, mild distress - Mild to moderate distress., well-developed Head exam: PRESENT: atraumatic, normocephalic Eye exam: PRESENT: conjunctiva pink. ABSENT: scleral icterus Ear exam: PRESENT: normal external ear exam. ABSENT: bleeding, drainage Mouth exam: PRESENT: moist, tongue midline Respiratory exam: PRESENT: decreased breath sounds - Right base, prolonged expiratory phas, rales, symmetrical, tachypnea, wheezes - Expiratory on the left. ABSENT: retraction Cardiovascular exam: PRESENT: irregular rhythm, tachycardia GI/Abdominal exam: PRESENT: normal bowel sounds, soft, other - Unable to speak in complete sentences due to shortness of breath. ABSENT: distended, guarding, tenderness Rectal exam: PRESENT: deferred Extremities exam: PRESENT: full ROM. ABSENT: joint swelling, pedal edema Musculoskeletal exam: PRESENT: normal inspection. ABSENT: deformity, tenderness Neurological exam: PRESENT: alert, awake, oriented to person, oriented to place, oriented to time, oriented to situation, CN II-XII grossly intact Psychiatric exam: PRESENT: appropriate affect. ABSENT: agitated, anxious Focused psych exam: ABSENT: delusional, restlessness Skin exam: PRESENT: dry, normal color, warm. ABSENT: rash Results Laboratory Results: 02/14/19 05:28 02/14/19 05:28 02/12/19 02/12/19 02/12/19 15:36 15:36 15:36 Creatine Kinase 193 H CK-MB (CK-2) 4.54 Troponin I < 0.012 NT-Pro-B Natriuret Pep 02/12/19 02/12/19 02/12/19 15:36 23:00 23:00 Creatine Kinase 143 CK-MB (CK-2) 3.29 Troponin I < 0.012 NT-Pro-B Natriuret Pep 3220 H 02/13/19 02/13/19 02/13/19 05:54 05:54 12:21 Creatine Kinase 107 89 CK-MB (CK-2) 2.40 Troponin I < 0.012 NT-Pro-B Natriuret Pep 02/13/19 12:21 Creatine Kinase CK-MB (CK-2) 2.38 Troponin I < 0.012 NT-Pro-B Natriuret Pep Impressions: Chest/Abdomen CTA 02/12/19 16:17 IMPRESSION: Bilateral pleural effusions and basilar subsegmental atelectasis, left greater than right.No emboli visualized in the main pulmonary arteries or the segmental branches. Assessment and Plan - Diagnosis (1) Acute on chronic diastolic congestive heart failure Is this a current diagnosis for this admission?: Yes Plan: February 13, 2019-we are changing the patient's diltiazem to metoprolol. He is already on an angiotensin receptor elkin. We will increase his diuresis with torsemide. Monitor intake and output as well as electrolytes and kidney function. 02/14/2019-he appears to be short of breath mostly due to failure. We have continued his RABIA inhibitor and he has been on torsemide instead of the hydrochlorothiazide. He also has a history of COPD. He will get additional furosemide this morning. He has had a net positive fluid balance of over 1 L over the past 48 hours. 02/15/2019-I did review the echocardiogram from December 2018-the patient has severe pulmonary hypertension. This is likely contributing to right heart juan antonio lure with cor pulmonale. Continue current regimen. Monitor closely. Still with net positive fluid balance. (2) Pneumonia Qualifiers: Pneumonia type: due to unspecified organism Laterality: left Lung location: lower lobe of lung Qualified Code(s): J18.1 - Lobar pneumonia, unspecified organism Is this a current diagnosis for this admission?: Yes Plan: February 13, 2019-left lower lobe pneumonia seen on x-ray. He did not have a markedly elevated white blood cell count but he did have a left shift. The left shift is more pronounced today. I will continue antibiotic therapy with ceftriaxone and azithromycin. 02/14/2019-continue dual antibiotic therapy 02/15/2019-white blood cell count is elevated again. Continue dual antibiotic therapy. (3) Atrial fibrillation Qualifiers: Atrial fibrillation type: permanent Qualified Code(s): I48.21 - Permanent atrial fibrillation Is this a current diagnosis for this admission?: Yes Plan: February 13, 2019-we are switching from diltiazem to metoprolol to maintain rate control but also help with his heart failure. Will exchange medications slowly. We will continue telemetry monitoring. 02/14/2019-having difficulty controlling his rate. We are trying to switch from calcium channel elkin to beta-elkin for heart failure. He was quite b radycardic (in the 40s) yesterday and is now quite tachycardic. He will get IV Lopressor and I will increase his metoprolol to 150 mg twice daily. We will eventually consolidate to metoprolol succinate. 02/15/2019-I will increase the metoprolol to the 200 mg tartrate twice daily. I have added digoxin. Continue to attempt good rate control. (4) Chronic anticoagulation Is this a current diagnosis for this admission?: Yes Plan: February 13, 2019-continue apixaban 02/14/2019-continue apixaban and monitor for bleeding. 02/15/2019-I have ordered a thoracentesis. We will hold the apixaban for 48 hours. Laboratory studies on Friday morning have been ordered for anticipated thoracentesis Friday. (5) Hyperlipidemia Qualifiers: Hyperlipidemia type: unspecified Qualified Code(s): E78.5 - Hyperlipidemia, unspecified Is this a current diagnosis for this admission?: Yes Plan: February 13, 2019-continue statin therapy 02/14/2019-continue atorvastatin (6) Hypothyroidism Qualifiers: Hypothyroidism type: unspecified Qualified Code(s): E03.9 - Hypothyroidism, unspecified Is this a current diagnosis for this admission?: Yes Plan: February 13, 2019-continue levothyroxine. The patient was discharged on 25 mcg. He is now on 75 mcg. 02/14/2019-I reviewed the home medication summary. The patient is on 25 mcg of levothyroxine. The 75 mcg dose that was ordered could be contributing to his rapid ventricular response. Despite a slightly increased TSH I am going to change his levothyroxine back to 25 mcg. 02/15/2019-continue levothyroxine at the 25 mcg dose. (7) Coronary artery disease Qualifiers: Coronary Disease-Associated Artery/Lesion type: [place] artery [place] vs. transplanted heart: [place] heart Associated angina: without angina Qualified Code(s): I25.10 - Atherosclerotic heart disease of [place] coronary artery without angina pectoris Is this a current diagnosis for this admission?: Yes Plan: February 13, 2019-history of coronary artery disease status post coronary artery bypass surgery. Continue cardiac regimen. Monitor for any symptoms of acute coronary syndrome. Troponin studies have been negative. 02/14/2019-currently without chest pain however he is having shortness of breath as we adjust his medicines and we will need to monitor closely due to his underlying coronary artery disease. 02/15/2019-medications have been increased as noted above. Monitor for evidence of acute coronary syndrome. (8) Moderate to severe pulmonary hypertension Is this a current diagnosis for this admission?: Yes Plan: 02/15/2019-this was noted on the echocardiogram in December. I will discuss with pulmonology. (9) Cor pulmonale (chronic) Is this a current diagnosis for this admission?: Yes Plan: 02/15/2019-discussed with pulmonology to institute appropriate treatment. - Plan Summary Summary: Patient will be admitted to a telemetry bed and serial cardiac enzymes will be performed to evaluate for possible myocardial ischemia or injury. His medications will be adjusted for better control and treatment of his diastolic congestive heart failure. His thyroid hormone replacement will be increased to an appropriate level. He will be continued on his usual medications for hyperlipidemia and a lipid profile will be obtained. He will be continued on a cardiac diet and his blood pressure and other vital signs be monitored closely throughout his hospital course. He will be continued on his anticoagulant therapy as recently prescribed. Daily CBCs, metabolic profiles and magnesium levels will be obtained as part of his ongoing evaluation. - Time Time Spent with patient: 25-34 minutes Medications reviewed and adjusted accordingly: Yes Anticipated discharge: Home with Homehealth
[2019-02-15] MEDS: LEVALBUTEROL HCL NEB 0.63 MG/3 ML AMPUL NEB PRN (13:38)
[2019-02-15] MEDS ORDERED: METHYLPREDNISOLONE INJ 40 MG/1 ML SDV IV SCH (14:00)
[2019-02-15] MEDS ORDERED: DILTIAZEM HCL 60 MG TABLET PO ONE (20:00)
[2019-02-15] MEDS: FUROSEMIDE INJ/PF 40 MG/4 ML SDV IV SCH (21:04)
[2019-02-15] MEDS: ATORVASTATIN CALCIUM 40 MG TABLET PO SCH (21:04)
[2019-02-15] MEDS: AZITHROMYCIN 500 MG in DEXTROSE 5%-WATER 250 ML IV SCH (21:05)
[2019-02-16] MEDS ORDERED: DILTIAZEM HCL 60 MG TABLET PO SCH
[2019-02-16] MEDS: ACETAMINOPHEN 325 MG TABLET PO PRN (00:05)
[2019-02-16] MEDS: IPRATROPIUM/ALBUTEROL 0.5-2.5 MG/3 ML AMPUL NEB SCH ×3 (00:06→16:05)
[2019-02-16] MEDS ORDERED: METHYLPREDNISOLONE INJ 40 MG/1 ML SDV IV SCH (02:00)
[2019-02-16] MEDS: DILTIAZEM HCL 60 MG TABLET PO SCH ×3 (02:49→18:12)
[2019-02-16] MEDS: LEVOTHYROXINE SODIUM 0.025 MG TABLET PO SCH (05:26)
[2019-02-16 05:53] LABS: MEAN CORPUSCULAR HEMOGLOBIN 28.2 pg (27.0-33.4); MEAN CORPUSCULAR HGB CONC 34.3 g/dL (32.0-36.0); MEAN CORPUSCULAR VOLUME 82 fl (80-97); PLATELET COUNT 339 10^3/uL (150-450); RED BLOOD COUNT 4.61 10^6/uL (4.35-5.55); WHITE BLOOD COUNT 11.9 10^3/uL (4.0-10.5)
[2019-02-16 06:29] LABS: ALBUMIN 4.1 g/dL (3.5-5.0); ANION GAP 12 (5-19); BLOOD UREA NITROGEN 38 mg/dL (7-20); CALCIUM 9.9 mg/dL (8.4-10.2); CARBON DIOXIDE 31 mmol/L (22-30); CHLORIDE 96 mmol/L (98-107); GLUCOSE 157 mg/dL (75-110); PHOSPHORUS 4.7 mg/dL (2.5-4.5); POTASSIUM 4.5 mmol/L (3.6-5.0)
[2019-02-16 06:57] LABS: ABSOLUTE LYMPHOCYTES# (MANUAL) 0.6 10^3/uL (0.5-4.7); ABSOLUTE MONOCYTES # (MANUAL) 0.4 10^3/uL (0.1-1.4); ANISOCYTOSIS SLIGHT; BAND NEUTROPHILS % (MANUAL) 1 % (3-5); BASOPHILS % (MANUAL) 0 % (0-2); EOSINOPHILS % (MANUAL) 0 % (0-6); LYMPHOCYTES % (MANUAL) 4 % (13-45); MONOCYTES % (MANUAL) 3 % (3-13); NUCLEATED RED BLOOD CELLS 1 /100 WBC (0); POLYCHROMASIA SLIGHT; SEGMENTED NEUTROPHILS % (MAN) 91 % (42-78); TOTAL CELLS COUNTED 100
[2019-02-16 06:58] LABS: PLATELET COMMENT ADEQUATE
[2019-02-16] MEDS: DIGOXIN 0.125 MG TABLET PO SCH (10:53)
[2019-02-16] MEDS: FAMOTIDINE 20 MG TABLET PO SCH ×2 (10:53→22:05)
[2019-02-16] MEDS: FUROSEMIDE INJ/PF 40 MG/4 ML SDV IV SCH ×2 (10:56→22:06)
[2019-02-16] MEDS: LOSARTAN POTASSIUM 50 MG TABLET PO SCH (10:57)
[2019-02-16] MEDS: DOCUSATE SODIUM 100 MG CAPSULE PO SCH (10:57)
[2019-02-16] MEDS: CEFTRIAXONE 1 GM/D5W RTU 1 GM/50 ML RTUPB IV SCH (10:58)
[2019-02-16] MEDS: METOPROLOL TARTRATE 100 MG TABLET PO SCH ×2 (10:58→22:05)
[2019-02-16] MEDS: AMLODIPINE BESYLATE 10 MG TABLET PO SCH (10:58)
[2019-02-16] MEDS: FLUTICASONE/UMECLIDIN/VILANTER 100-62.5-25 MCG/DOSE IH SCH (11:07)
[2019-02-16] MEDS: PREDNISONE 20 MG TABLET PO SCH ×2 (11:10→18:12)
--- NOTE | 2019-02-16 13:44 | PDOC PROGRESS REPORT ---
Subjective Progress Note for:: 02/16/19 Subjective:: This is a 68-year-old male who presented with shortness of breath and was admitted for left-sided pneumonia and acute on chronic diastolic heart failure. No acute event. Patient continues to slowly but gradually improve. He says his shortness of breath is a little better compared to yesterday. He continues to be in A. fib but heart rate has improved to the high 90s to low 100s. He denies chest pain. Thoracentesis was previously ordered for today. Will repeat chest x-ray and see if he still needs thoracentesis. He is on minimal supplemental O2. We will see if he can be weaned off O2 today. Reason For Visit: ACUTE ON CHRONIC DIASTOLIC CHF Physical Exam Vital Signs: Temp Pulse Resp BP Pulse Ox 97.8 F 95 18 115/56 L 93 02/16/19 07:34 02/16/19 08:09 02/16/19 08:09 02/16/19 07:34 02/16/19 08:09 Intake & Output 02/15/19 02/16/19 02/17/19 06:59 06:59 06:59 Intake Total 2430 926 Output Total 1050 Balance 2430 -124 Weight 218 lb 4.122 oz 195 lb 15.855 oz General appearance: PRESENT: no acute distress, well-developed, well-nourished Head exam: PRESENT: atraumatic, normocephalic Eye exam: PRESENT: conjunctiva pink, EOMI, PERRLA. ABSENT: scleral icterus Ear exam: PRESENT: normal external ear exam Mouth exam: PRESENT: moist, tongue midline Neck exam: ABSENT: carotid bruit, JVD, lymphadenopathy, thyromegaly Respiratory exam: PRESENT: rhonchi. ABSENT: rales, wheezes Cardiovascular exam: PRESENT: irregular rhythm, tachycardia. ABSENT: diastolic murmur, rubs, systolic murmur Pulses: PRESENT: normal dorsalis pedis pul GI/Abdominal exam: PRESENT: normal bowel sounds, soft. ABSENT: distended, guarding, mass, organolmegaly, rebound, tenderness Rectal exam: PRESENT: deferred Neurological exam: PRESENT: alert, awake, oriented to person, oriented to place, oriented to time, oriented to situation, CN II-XII grossly intact. ABSENT: motor sensory deficit Results Laboratory Results: 02/16/19 04:30 02/16/19 04:30 02/16/19 02/16/19 04:30 04:30 WBC 11.9 H RBC 4.61 Hgb 13.0 L Hct 38.0 MCV 82 MCH 28.2 MCHC 34.3 RDW 14.0 Plt Count 339 Seg Neutrophils % Not Reportable Sodium 139.3 Potassium 4.5 Chloride 96 L Carbon Dioxide 31 H Anion Gap 12 BUN 38 H Creatinine 1.39 H Est GFR ( Amer) > 60 Glucose 157 H Calcium 9.9 Phosphorus 4.7 H Magnesium 2.2 Albumin 4.1 02/12/19 02/12/19 02/12/19 15:36 15:36 15:36 Creatine Kinase 193 H CK-MB (CK-2) 4.54 Troponin I < 0.012 NT-Pro-B Natriuret Pep 02/12/19 02/12/19 02/12/19 15:36 23:00 23:00 Creatine Kinase 143 CK-MB (CK-2) 3.29 Troponin I < 0.012 NT-Pro-B Natriuret Pep 3220 H 02/13/19 02/13/19 02/13/19 05:54 05:54 12:21 Creatine Kinase 107 89 CK-MB (CK-2) 2.40 Troponin I < 0.012 NT-Pro-B Natriuret Pep 02/13/19 12:21 Creatine Kinase CK-MB (CK-2) 2.38 Troponin I < 0.012 NT-Pro-B Natriuret Pep Impressions: Chest/Abdomen CTA 02/12/19 16:17 IMPRESSION: Bilateral pleural effusions and basilar subsegmental atelectasis, left greater than right.No emboli visualized in the main pulmonary arteries or the segmental branches. Assessment and Plan - Diagnosis (1) Acute respiratory failure with hypoxia Is this a current diagnosis for this admission?: Yes Plan: Secondary to pneumonia and CHF exacerbation. We will try to wean off O2 today. (2) Pneumonia Qualifiers: Pneumonia type: due to unspecified organism Laterality: left Lung location: lower lobe of lung Qualified Code(s): J18.1 - Lobar pneumonia, unspecified organism Is this a current diagnosis for this admission?: Yes Plan: Continue Rocephin and azithromycin. (3) Acute on chronic diastolic congestive heart failure Is this a current diagnosis for this admission?: Yes Plan: Deemed to be related to his A. fib and cor pulmonale. Currently on IV Lasix 40 mg daily. (4) Hypothyroidism Qualifiers: Hypothyroidism type: unspecified Qualified Code(s): E03.9 - Hypothyroidism, unspecified Is this a current diagnosis for this admission?: Yes Plan: Continue Synthroid. (5) Atrial fibrillation Qualifiers: Atrial fibrillation type: permanent Qualified Code(s): I48.21 - Permanent atrial fibrillation Is this a current diagnosis for this admission?: Yes Plan: Rate controlled. Continue Cardizem and Lopressor. Continue apixaban. (6) Coronary artery disease Qualifiers: Coronary Disease-Associated Artery/Lesion type: [place] artery [place] vs. transplanted heart: [place] heart Associated angina: without angina Qualified Code(s): I25.10 - Atherosclerotic heart disease of [place] coronary artery without angina pectoris Is this a current diagnosis for this admission?: Yes Plan: Stable. (7) Hypertension Qualifiers: Hypertension type: essential hypertension Qualified Code(s): I10 - Essential (primary) hypertension Is this a current diagnosis for this admission?: Yes (8) Cor pulmonale (chronic) Is this a current diagnosis for this admission?: Yes (9) COPD (chronic obstructive pulmonary disease) Is this a current diagnosis for this admission?: Yes Plan: Currently on Solu-Medrol 40 mg IV every 8. Switch to prednisone. - Time Time Spent with patient: 25-34 minutes
[2019-02-16] MEDS: LEVALBUTEROL HCL NEB 0.63 MG/3 ML AMPUL NEB PRN ×2 (14:02→20:15)
[2019-02-16] MEDS: ACETYLCYSTEINE 10% NEB 400 MG/4 ML VIAL NEB SCH ×2 (14:02→20:15)
--- NOTE | 2019-02-16 15:00 | RADIOLOGY REPORT (SQ) ---
EXAM DESCRIPTION: CHEST SINGLE VIEW COMPLETED DATE/TIME: 02/16/2019 1:15 pm REASON FOR STUDY: reassess congestion, effusion COMPARISON: 02/14/2019. EXAM PARAMETERS: NUMBER OF VIEWS: One view. TECHNIQUE: Single frontal radiographic view of the chest acquired. RADIATION DOSE: NA LIMITATIONS: None. FINDINGS: LUNGS AND PLEURA: Improved bibasilar aeration with persistent bibasilar opacities. Unchan ged elevation of the right hemidiaphragm. Likely trace left effusion. No pneumothorax. MEDIASTINUM AND HILAR STRUCTURES: No masses. Contour normal. HEART AND VASCULAR STRUCTURES: Heart normal in size. Normal vasculature. BONES: Median sternotomy changes. HARDWARE: None in the chest. OTHER: No other significant finding. IMPRESSION: Improve bibasilar aeration with mild residual opacities. No new airspace disease or lar ge effusion. TECHNICAL DOCUMENTATION: JOB ID: [id number] [employer]- All Rights Reserved Reading location - IP/workstation name: [email or web address]
[2019-02-16] MEDS: AZITHROMYCIN 250 MG TABLET PO SCH (22:05)
[2019-02-16] MEDS: ATORVASTATIN CALCIUM 40 MG TABLET PO SCH (22:05)
[2019-02-17] MEDS: IPRATROPIUM/ALBUTEROL 0.5-2.5 MG/3 ML AMPUL NEB SCH ×4 (00:31→20:13)
[2019-02-17] MEDS: ACETYLCYSTEINE 10% NEB 400 MG/4 ML VIAL NEB SCH ×4 (02:17→20:12)
[2019-02-17] MEDS: LEVALBUTEROL HCL NEB 0.63 MG/3 ML AMPUL NEB PRN ×2 (02:17→13:54)
[2019-02-17] MEDS: DILTIAZEM HCL 60 MG TABLET PO SCH ×3 (03:35→17:49)
[2019-02-17] MEDS: LEVOTHYROXINE SODIUM 0.025 MG TABLET PO SCH (05:46)
[2019-02-17 07:19] LABS: HEMATOCRIT 36.3 % (37.9-51.0); HEMOGLOBIN 12.3 g/dL (13.5-17.0); MEAN CORPUSCULAR HEMOGLOBIN 28.3 pg (27.0-33.4); MEAN CORPUSCULAR VOLUME 83 fl (80-97); PLATELET COUNT 332 10^3/uL (150-450); RED BLOOD COUNT 4.36 10^6/uL (4.35-5.55); RED CELL DISTRIBUTION WIDTH 14.1 % (11.5-14.0); WHITE BLOOD COUNT 14.4 10^3/uL (4.0-10.5)
[2019-02-17 07:32] LABS: INTERNATIONAL RATION (INR) 1.07; PARTIAL THROMBOPLASTIN TIME 26.8 SEC (23.5-35.8); PROTHROMBIN TIME 13.9 SEC (11.4-15.4)
[2019-02-17 07:38] LABS: ALBUMIN 3.8 g/dL (3.5-5.0); ALKALINE PHOSPHATASE 66 U/L (38-126); ANION GAP 10 (5-19); ASPARTATE AMINO TRANSFERASE 21 U/L (17-59); BILIRUBIN,DIRECT 0.1 mg/dL (0.0-0.4); BILIRUBIN,TOTAL 0.3 mg/dL (0.2-1.3); BLOOD UREA NITROGEN 46 mg/dL (7-20); CALCIUM 9.6 mg/dL (8.4-10.2); CARBON DIOXIDE 31 mmol/L (22-30); CHLORIDE 99 mmol/L (98-107); GLUCOSE 139 mg/dL (75-110); POTASSIUM 4.2 mmol/L (3.6-5.0); TOTAL PROTEIN 6.6 g/dL (6.3-8.2)
[2019-02-17 07:54] LABS: ABSOLUTE LYMPHOCYTES# (MANUAL) 0.9 10^3/uL (0.5-4.7); ABSOLUTE MONOCYTES # (MANUAL) 0.9 10^3/uL (0.1-1.4); BASOPHILS % (MANUAL) 0 % (0-2); EOSINOPHILS % (MANUAL) 0 % (0-6); LYMPHOCYTES % (MANUAL) 6 % (13-45); MONOCYTES % (MANUAL) 6 % (3-13); PLATELET COMMENT ADEQUATE; RBC MORPHOLOGY COMMENT NORMO-CYTIC/CHROMIC; SEGMENTED NEUTROPHILS % (MAN) 88 % (42-78); TOTAL CELLS COUNTED 100
[2019-02-17] MEDS: DOCUSATE SODIUM 100 MG CAPSULE PO SCH (10:20)
[2019-02-17] MEDS: METOPROLOL TARTRATE 100 MG TABLET PO SCH ×2 (10:20→21:59)
[2019-02-17] MEDS: LOSARTAN POTASSIUM 50 MG TABLET PO SCH (10:20)
[2019-02-17] MEDS: DIGOXIN 0.125 MG TABLET PO SCH (10:20)
[2019-02-17] MEDS: FUROSEMIDE INJ/PF 40 MG/4 ML SDV IV SCH ×2 (10:20→22:00)
[2019-02-17] MEDS: AMLODIPINE BESYLATE 10 MG TABLET PO SCH (10:20)
[2019-02-17] MEDS: METHYLPREDNISOLONE INJ 40 MG/1 ML SDV IV SCH ×2 (10:20→22:00)
[2019-02-17] MEDS: FAMOTIDINE 20 MG TABLET PO SCH ×2 (10:20→21:59)
[2019-02-17] MEDS: CEFTRIAXONE 1 GM/D5W RTU 1 GM/50 ML RTUPB IV SCH (10:20)
[2019-02-17] MEDS: FLUTICASONE/UMECLIDIN/VILANTER 100-62.5-25 MCG/DOSE IH SCH (10:33)
--- NOTE | 2019-02-17 14:42 | PDOC PROGRESS REPORT ---
Subjective Progress Note for:: 02/17/19 Subjective:: This is a 68-year-old male who presented with shortness of breath and was admitted for left-sided pneumonia and acute on chronic diastolic heart failure. 02/16: Patient continues to slowly but gradually improve. He says his shortness of breath is a little better compared to yesterday. He continues to be in A. fib but heart rate has improved to the high 90s to low 100s. He denies chest pain. Thoracentesis was previously ordered for today. Will repeat chest x-ray and see if he still needs thoracentesis. He is on minimal supplemental O2. We will see if he can be weaned off O2 today. 02/17: No acute event overnight. This morning, patient complained that he had developed wheezing overnight. He says his shortness of breath was better yesterday but he felt more short of breath today when he developed some wheezing. His Solu-Medrol was switched to prednisone yesterday. He does have significant bilateral wheezing on examination. His repeat chest x-ray shows significant improvement of the infiltrates and his effusion. He does not need thoracentesis anymore. His bilateral wheezing are likely from COPD exacerbation. We will switch him back to IV steroids. Reason For Visit: ACUTE ON CHRONIC DIASTOLIC CHF Physical Exam Vital Signs: Temp Pulse Resp BP Pulse Ox 98.0 F 67 22 H 123/64 91 L 02/17/19 11:00 02/17/19 11:00 02/17/19 11:00 02/17/19 11:00 02/17/19 11:00 Intake & Output 02/16/19 02/17/19 02/18/19 06:59 06:59 06:59 Intake Total 926 3189 527 Output Total 1050 250 Balance -124 2939 527 Weight 195 lb 15.855 oz 200 lb 13.458 oz General appearance: PRESENT: no acute distress, well-developed, well-nourished Head exam: PRESENT: atraumatic, normocephalic Eye exam: PRESENT: conjunctiva pink, EOMI, PERRLA. ABSENT: scleral icterus Ear exam: PRESENT: normal external ear exam Mouth exam: PRESENT: moist, tongue midline Neck exam: ABSENT: carotid bruit, JVD, lymphadenopathy, thyromegaly Respiratory exam: PRESENT: rhonchi, wheezes. ABSENT: rales Cardiovascular exam: PRESENT: irregular rhythm. ABSENT: diastolic murmur, rubs, systolic murmur Pulses: PRESENT: normal dorsalis pedis pul GI/Abdominal exam: PRESENT: normal bowel sounds, soft. ABSENT: distended, guarding, mass, organolmegaly, rebound, tenderness Rectal exam: PRESENT: deferred Extremities exam: PRESENT: full ROM. ABSENT: calf tenderness, clubbing, pedal edema Neurological exam: PRESENT: alert, awake, oriented to person, oriented to place, oriented to time, oriented to situation, CN II-XII grossly intact. ABSENT: motor sensory deficit Results Laboratory Results: 02/17/19 06:49 02/17/19 06:49 02/17/19 02/17/19 06:49 06:49 WBC 14.4 H RBC 4.36 Hgb 12.3 L Hct 36.3 L MCV 83 MCH 28.3 MCHC 34.0 RDW 14.1 H Plt Count 332 Seg Neutrophils % Not Reportable Sodium 139.9 Potassium 4.2 Chloride 99 Carbon Dioxide 31 H Anion Gap 10 BUN 46 H Creatinine 1.23 Est GFR ( Amer) > 60 Glucose 139 H Calcium 9.6 Total Bilirubin 0.3 AST 21 Alkaline Phosphatase 66 Total Protein 6.6 Albumin 3.8 02/12/19 02/12/19 02/12/19 15:36 15:36 15:36 Creatine Kinase 193 H CK-MB (CK-2) 4.54 Troponin I < 0.012 NT-Pro-B Natriuret Pep 02/12/19 02/12/19 02/12/19 15:36 23:00 23:00 Creatine Kinase 143 CK-MB (CK-2) 3.29 Troponin I < 0.012 NT-Pro-B Natriuret Pep 3220 H 02/13/19 02/13/19 02/13/19 05:54 05:54 12:21 Creatine Kinase 107 89 CK-MB (CK-2) 2.40 Troponin I < 0.012 NT-Pro-B Natriuret Pep 02/13/19 12:21 Creatine Kinase CK-MB (CK-2) 2.38 Troponin I < 0.012 NT-Pro-B Natriuret Pep Impressions: Chest/Abdomen CTA 02/12/19 16:17 IMPRESSION: Bilateral pleural effusions and basilar subsegmental atelectasis, left greater than right.No emboli visualized in the main pulmonary arteries or the segmental branches. Chest X-Ray 02/16/19 10:02 IMPRESSION: Improve bibasilar aeration with mild residual opacities. No new airspace disease or large effusion. Assessment and Plan - Diagnosis (1) Acute respiratory failure with hypoxia Is this a current diagnosis for this admission?: Yes Plan: 02/16: Secondary to pneumonia and CHF exacerbation. We will try to wean off O2 today. 02/17: Now having COPD exacerbation. (2) COPD (chronic obstructive pulmonary disease) Is this a current diagnosis for this admission?: Yes Plan: Currently in COPD exacerbation. Switch back to IV steroids. Continue breathing treatments. (3) Pneumonia Qualifiers: Pneumonia type: due to unspecified organism Laterality: left Lung location: lower lobe of lung Qualified Code(s): J18.1 - Lobar pneumonia, unspecified organism Is this a current diagnosis for this admission?: Yes Plan: Improved. Continue Rocephin and azithromycin. (4) Acute on chronic diastolic congestive heart failure Is this a current diagnosis for this admission?: Yes Plan: Improved. Deemed to be related to his A. fib and cor pulmonale. Currently on IV Lasix 40 mg daily. (5) Hypothyroidism Qualifiers: Hypothyroidism type: unspecified Qualified Code(s): E03.9 - Hypothyroidism, unspecified Is this a current diagnosis for this admission?: Yes Plan: Continue Synthroid. (6) Atrial fibrillation Qualifiers: Atrial fibrillation type: permanent Qualified Code(s): I48.21 - Permanent atrial fibrillation Is this a current diagnosis for this admission?: Yes Plan: Rate controlled. Continue Cardizem and Lopressor. Continue apixaban. (7) Coronary artery disease Qualifiers: Coronary Disease-Associated Artery/Lesion type: [place] artery [place] vs. transplanted heart: [place] heart Associated angina: without angina Qualified Code(s): I25.10 - Atherosclerotic heart disease of [place] coronary artery without angina pectoris Is this a current diagnosis for this admission?: Yes Plan: Stable. (8) Hypertension Qualifiers: Hypertension type: essential hypertension Qualified Code(s): I10 - Essential (primary) hypertension Is this a current diagnosis for this admission?: Yes (9) Cor pulmonale (chronic) Is this a current diagnosis for this admission?: Yes
[2019-02-17] MEDS: ACETAMINOPHEN 325 MG TABLET PO PRN (20:34)
[2019-02-17] MEDS: AZITHROMYCIN 250 MG TABLET PO SCH (21:58)
[2019-02-17] MEDS: ATORVASTATIN CALCIUM 40 MG TABLET PO SCH (21:59)
[2019-02-18] MEDS: IPRATROPIUM/ALBUTEROL 0.5-2.5 MG/3 ML AMPUL NEB SCH ×4 (02:05→20:27)
[2019-02-18] MEDS: ACETYLCYSTEINE 10% NEB 400 MG/4 ML VIAL NEB SCH ×4 (02:05→20:25)
[2019-02-18] MEDS: DILTIAZEM HCL 60 MG TABLET PO SCH ×3 (02:54→17:53)
[2019-02-18] MEDS: LEVOTHYROXINE SODIUM 0.025 MG TABLET PO SCH (05:05)
[2019-02-18] MEDS: DIGOXIN 0.125 MG TABLET PO SCH (09:35)
[2019-02-18] MEDS: AMLODIPINE BESYLATE 10 MG TABLET PO SCH (09:37)
[2019-02-18] MEDS: FAMOTIDINE 20 MG TABLET PO SCH ×2 (09:38→22:41)
[2019-02-18] MEDS: DOCUSATE SODIUM 100 MG CAPSULE PO SCH (09:38)
[2019-02-18] MEDS: METOPROLOL TARTRATE 100 MG TABLET PO SCH ×2 (09:38→22:40)
[2019-02-18] MEDS: FUROSEMIDE INJ/PF 40 MG/4 ML SDV IV SCH ×2 (10:06→22:41)
[2019-02-18] MEDS: METHYLPREDNISOLONE INJ 40 MG/1 ML SDV IV SCH ×2 (10:06→22:41)
[2019-02-18] MEDS: FLUTICASONE/UMECLIDIN/VILANTER 100-62.5-25 MCG/DOSE IH SCH (10:08)
[2019-02-18] MEDS: LOSARTAN POTASSIUM 50 MG TABLET PO SCH (10:15)
[2019-02-18] MEDS: CEFTRIAXONE 1 GM/D5W RTU 1 GM/50 ML RTUPB IV SCH (10:45)
[2019-02-18] MEDS: APIXABAN 5 MG TABLET PO SCH ×2 (14:07→22:41)
--- NOTE | 2019-02-18 15:27 | PDOC PROGRESS REPORT ---
Subjective Progress Note for:: 02/18/19 Subjective:: This is a 68-year-old male who presented with shortness of breath and was admitted for left-sided pneumonia and acute on chronic diastolic heart failure. 02/16: Patient continues to slowly but gradually improve. He says his shortness of breath is a little better compared to yesterday. He continues to be in A. fib but heart rate has improved to the high 90s to low 100s. He denies chest pain. Thoracentesis was previously ordered for today. Will repeat chest x-ray and see if he still needs thoracentesis. He is on minimal supplemental O2. We will see if he can be weaned off O2 today. 02/17: This morning, patient complained that he had developed wheezing ov ernight. He says his shortness of breath was better yesterday but he felt more short of breath today when he developed some wheezing. His Solu-Medrol was switched to prednisone yesterday. He does have significant bilateral wheezing on examination. His repeat chest x-ray shows significant improvement of the infiltrates and his effusion. He does not need thoracentesis anymore. His bilateral wheezing are likely from COPD exacerbation. We will switch him back to IV steroids. 02/18: No acute event overnight. He says he still feels short of breath but this has improved from yesterday. He has bilateral wheezing on examination but this also has improved compared to yesterday. Denies chest pain. Reason For Visit: ACUTE ON CHRONIC DIASTOLIC CHF Physical Exam Vital Signs: Temp Pulse Resp BP Pulse Ox 97.9 F 77 18 139/83 H 91 L 02/18/19 07:06 02/18/19 14:29 02/18/19 14:29 02/18/19 12:21 02/18/19 14:29 Intake & Output 02/17/19 02/18/19 02/19/19 06:59 06:59 06:59 Intake Total 3189 1267 50 Output Total 250 700 Balance 2939 567 50 Weight 200 lb 13.458 oz 200 lb 2.876 oz General appearance: PRESENT: no acute distress, well-developed, well-nourished Head exam: PRESENT: atraumatic, normocephalic Eye exam: PRESENT: conjunctiva pink, EOMI, PERRLA. ABSENT: scleral icterus Ear exam: PRESENT: normal external ear exam Mouth exam: PRESENT: moist, tongue midline Neck exam: ABSENT: carotid bruit, JVD, lymphadenopathy, thyromegaly Respiratory exam: PRESENT: rhonchi, wheezes. ABSENT: rales Cardiovascular exam: PRESENT: RRR. ABSENT: diastolic murmur, rubs, systolic murmur Pulses: PRESENT: normal dorsalis pedis pul GI/Abdominal exam: PRESENT: normal bowel sounds, soft. ABSENT: distended, guarding, mass, organolmegaly, rebound, tenderness Rectal exam: PRESENT: deferred Extremities exam: PRESENT: full ROM. ABSENT: calf tenderness, clubbing, pedal edema Neurological exam: PRESENT: alert, awake, oriented to person, oriented to place, oriented to time, oriented to situation, CN II-XII grossly intact. ABSENT: motor sensory deficit Results Laboratory Results: 02/17/19 06:49 02/17/19 06:49 02/12/19 17:33 Blood Blood Culture - Final NO GROWTH IN 5 DAYS 02/12/19 16:21 Blood Blood Culture - Final NO GROWTH IN 5 DAYS 02/12/19 02/12/19 02/12/19 15:36 15:36 15:36 Creatine Kinase 193 H CK-MB (CK-2) 4.54 Troponin I < 0.012 NT-Pro-B Natriuret Pep 02/12/19 02/12/19 02/12/19 15:36 23:00 23:00 Creatine Kinase 143 CK-MB (CK-2) 3.29 Troponin I < 0.012 NT-Pro-B Natriuret Pep 3220 H 02/13/19 02/13/19 02/13/19 05:54 05:54 12:21 Creatine Kinase 107 89 CK-MB (CK-2) 2.40 Troponin I < 0.012 NT-Pro-B Natriuret Pep 02/13/19 12:21 Creatine Kinase CK-MB (CK-2) 2.38 Troponin I < 0.012 NT-Pro-B Natriuret Pep Impressions: Chest/Abdomen CTA 02/12/19 16:17 IMPRESSION: Bilateral pleural effusions and basilar subsegmental atelectasis, left greater than right.No emboli visualized in the main pulmonary arteries or the segmental branches. Chest X-Ray 02/16/19 10:02 IMPRESSION: Improve bibasilar aeration with mild residual opacities. No new airspace disease or large effusion. Assessment and Plan - Diagnosis (1) Acute respiratory failure with hypoxia Is this a current diagnosis for this admission?: Yes Plan: 02/16: Secondary to pneumonia and CHF exacerbation. We will try to wean off O2 today. 02/17: Now having COPD exacerbation. (2) COPD (chronic obstructive pulmonary disease) Is this a current diagnosis for this admission?: Yes Plan: Currently in COPD exacerbation. Switch back to IV steroids. Continue breathing treatments. 02/18: Improving. Continue solumedrol. (3) Pneumonia Qualifiers: Pneumonia type: due to unspecified organism Laterality: left Lung location: lower lobe of lung Qualified Code(s): J18.1 - Lobar pneumonia, unspecified organism Is this a current diagnosis for this admission?: Yes Plan: Improved. Continue Rocephin and azithromycin. (4) Acute on chronic diastolic congestive heart failure Is this a current diagnosis for this admission?: Yes Plan: Improved. Deemed to be related to his A. fib and cor pulmonale. Currently on IV Lasix 40 mg daily. (5) Hypothyroidism Qualifiers: Hypothyroidism type: unspecified Qualified Code(s): E03.9 - Hypothyroidism, unspecified Is this a current diagnosis for this admission?: Yes Plan: Continue Synthroid. (6) Atrial fibrillation Qualifiers: Atrial fibrillation type: permanent Qualified Code(s): I48.21 - Permanent atrial fibrillation Is this a current diagnosis for this admission?: Yes Plan: Rate controlled. Continue Cardizem and Lopressor. Continue apixaban. (7) Coronary artery disease Qualifiers: Coronary Disease-Associated Artery/Lesion type: [place] artery [place] vs. transplanted heart: [place] heart Associated angina: without angina Qualified Code(s): I25.10 - Atherosclerotic heart disease of [place] coronary artery without angina pectoris Is this a current diagnosis for this admission?: Yes Plan: Stable. (8) Hypertension Qualifiers: Hypertension type: essential hypertension Qualified Code(s): I10 - Essential (primary) hypertension Is this a current diagnosis for this admission?: Yes (9) Cor pulmonale (chronic) Is this a current diagnosis for this admission?: Yes - Time Time Spent with patient: 25-34 minutes
[2019-02-18] MEDS: AZITHROMYCIN 250 MG TABLET PO SCH (22:41)
[2019-02-18] MEDS: ATORVASTATIN CALCIUM 40 MG TABLET PO SCH (22:41)
[2019-02-19] MEDS: IPRATROPIUM/ALBUTEROL 0.5-2.5 MG/3 ML AMPUL NEB SCH ×3 (02:15→14:18)
[2019-02-19] MEDS: ACETYLCYSTEINE 10% NEB 400 MG/4 ML VIAL NEB SCH ×3 (02:15→14:19)
[2019-02-19] MEDS: DILTIAZEM HCL 60 MG TABLET PO SCH ×2 (04:02→10:27)
[2019-02-19] MEDS: LEVOTHYROXINE SODIUM 0.025 MG TABLET PO SCH (08:44)
[2019-02-19] MEDS: FLUTICASONE/UMECLIDIN/VILANTER 100-62.5-25 MCG/DOSE IH SCH (10:19)
[2019-02-19] MEDS: FUROSEMIDE INJ/PF 40 MG/4 ML SDV IV SCH (10:25)
[2019-02-19] MEDS: DOCUSATE SODIUM 100 MG CAPSULE PO SCH (10:27)
[2019-02-19] MEDS: METOPROLOL TARTRATE 100 MG TABLET PO SCH (10:27)
[2019-02-19] MEDS: APIXABAN 5 MG TABLET PO SCH (10:27)
[2019-02-19] MEDS: DIGOXIN 0.125 MG TABLET PO SCH (10:28)
[2019-02-19] MEDS: AMLODIPINE BESYLATE 10 MG TABLET PO SCH (10:30)
[2019-02-19] MEDS: FAMOTIDINE 20 MG TABLET PO SCH (10:30)
[2019-02-19] MEDS: LOSARTAN POTASSIUM 50 MG TABLET PO SCH (10:31)
[2019-02-19] MEDS: METHYLPREDNISOLONE INJ 40 MG/1 ML SDV IV SCH (10:34)
[2019-02-19] MEDS: CEFTRIAXONE 1 GM/D5W RTU 1 GM/50 ML RTUPB IV SCH (10:47)
[2019-02-19 15:40] VITALS: BP 129/73
[2019-02-19] MEDS ORDERED: PREDNISONE 20 MG TABLET PO SCH (18:00)
--- NOTE | 2019-02-20 16:09 | PDOC DISCHARGE SUMMARY ---
Impression - Admit/DC Date/PCP Admission Date/Primary Care Provider: 02/12/19 22:11 NIKOLE QUIROGA PA-C Discharge Date: 02/19/19 - Discharge Diagnosis (1) Acute respiratory failure with hypoxia Is this a current diagnosis for this admission?: Yes (2) COPD (chronic obstructive pulmonary disease) Is this a current diagnosis for this admission?: Yes (3) Pneumonia Is this a current diagnosis for this admission?: Yes (4) Acute on chronic diastolic congestive heart failure Is this a current diagnosis for this admission?: Yes (5) Hypothyroidism Is this a current diagnosis for this admission?: Yes (6) Atrial fibrillation Is this a current diagnosis for this admission?: Yes (7) Coronary artery disease Is this a current diagnosis for this admission?: Yes (8) Hypertension Is this a current diagnosis for this admission?: Yes (9) Cor pulmonale (chronic) Is this a current diagnosis for this admission?: Yes - Additional Information Resuscitation Status: Full Code Discharge Diet: Cardiac Discharge Activity: Activity As Tolerated, Balance Activity w/Rest, Weigh Daily Referrals: NIKOLE QUIROGA PA-C [Primary Care Provider] - (Left a voicemail with the pr ovider's office to contact you with the date and time of a follow up appointment. Thank you and have a great day!) LUISANA TAYLOR MD [ACTIVE STAFF] - (Please follow-up with Dr. Dubon sometime next week for your A. Fib.) Prescriptions: Prednisone [Deltasone] 40 mg PO BID 5 Days #20 tablet Ipratropium/Albuterol Sulfate [Duoneb 3 ml Ampul] 3 ml NEB RTQ6HP PRN #30 vial. neb PRN Reason: Apixaban [Eliquis 5 mg Tablet] 5 mg PO Q12 #60 tablet Digoxin [Lanoxin 0.125 mg Tablet] 0.125 mg PO DAILY #30 tablet Furosemide [Lasix 20 mg Tablet] 20 mg PO QAM 7 Days #7 tablet Metoprolol Tartrate [Lopressor 100 mg Tablet] 200 mg PO Q12 #60 tablet Home Medications: Amlodipine Besylate [Norvasc 10 mg Tablet] 10 mg PO DAILY MDD LAST FILLED 11/06 FOR 90DS 02/13/19 Apixaban [Eliquis 5 mg Tablet] 5 mg PO BID 02/13/19 Atorvastatin Calcium [Lipitor 40 mg Tablet] 40 mg PO QHS 02/13/19 Diltiazem HCl [Cardizem Cd 180 mg Capsule] 180 mg PO BID 02/13/19 Fluticasone/Umeclidin/Vilanter [Trelegy 100-62.5-25 Mcg Ellipta 14 Dose/Dpi] 1 puff IH DAILY 02/13/19 Ipratropium/Albuterol Sulfate [Duoneb 3 ml Ampul] 3 ml NEB RTQIDP PRN 02/13/19 Levothyroxine Sodium 25 mcg PO Q6AM 02/13/19 Telmisartan/Hydrochlorothiazid [Micardis HCT 80-25 mg Tablet] 1 tab PO DAILY 02/13/19 Apixaban [Eliquis 5 mg Tablet] 5 mg PO Q12 #60 tablet 02/19/19 Digoxin [Lanoxin 0.125 mg Tablet] 0.125 mg PO DAILY #30 tablet 02/19/19 Furosemide [Lasix 20 mg Tablet] 20 mg PO QAM 7 Days #7 tablet 02/19/19 Ipratropium/Albuterol Sulfate [Duoneb 3 ml Ampul] 3 ml NEB RTQ6HP PRN #30 v ial.neb 02/19/19 Metoprolol Tartrate [Lopressor 100 mg Tablet] 200 mg PO Q12 #60 tablet 02/19/19 Prednisone [Deltasone] 40 mg PO BID 5 Days #20 tablet 02/19/19 History of Present Illiness History of Present Illness: Admitting hospitalist's H&P: TOY KHAN is a 68 year old male who presented to the emergency room with a 4-day history of dyspnea. Patient admits gradually worsening dyspnea over the last 4 days, to the point where it is now severe. His dyspnea is worsened by exertion and relieved by rest. He denies other associated or accompanying signs and symptoms. He admits prior similar episodes with COPD, heart failure and pneumonia in the past. He denies identification of any other aggravating or ameliorating factors for his dyspnea. In the emergency room he was found to be hypoxic with O2 sat of 85% on room air and improved to 93 to 95% with O2 per NC @ 2L/min. His CTA of the chest showed bilateral pleural effusions but was negative for pulmonary embolism or pneumonia. His white count was 10,900, his BNP was greater than 3200, his TSH was 5.83, his EKG showed him to be in controlled atrial fibrillation and the remainder of his evaluation was unremarkable compared to his baseline values. Patient was subsequently admitted to the hospital for further evaluation and treatment. Hospital Course Hospital Course: This is a 68-year-old male who presented with shortness of breath and was admitted for left-sided pneumonia and acute on chronic diastolic heart failure. Patient started on IV antibiotics and IV Lasix. His status and heart failure was deemed to be related to A. fib RVR. Patient was also on beta-blockers and Eliquis. There was initial plan to do thoracentesis for his pleural effusions. However on repeat chest x-ray this significantly improved and only showed very minimal pleural fluid hence thoracentesis was canceled. Patient was also treated for COPD exacerbation. He was given steroids and breathing treatments and this also resolved. He will be discharged on a short course of prednisone. He also qualified for home O2. Physical Exam Vital Signs: Temp Pulse Resp BP Pulse Ox 97.6 F 77 16 129/73 H 94 02/19/19 15:30 02/19/19 15:30 02/19/19 15:30 02/19/19 15:30 02/19/19 15:30 Intake & Output 02/18/19 02/19/19 02/20/19 06:59 06:59 06:59 Intake Total 1267 1376 890 Output Total 700 Balance 567 1376 890 Weight 200 lb 2.876 oz 200 lb 2.876 oz General appearance: PRESENT: no acute distress, well-developed, well-nourished Head exam: PRESENT: atraumatic, normocephalic Eye exam: PRESENT: conjunctiva pink, EOMI, PERRLA. ABSENT: scleral icterus Ear exam: PRESENT: normal external ear exam Mouth exam: PRESENT: moist, tongue midline Neck exam: ABSENT: carotid bruit, JVD, lymphadenopathy, thyromegaly Respiratory exam: PRESENT: rhonchi. ABSENT: rales, wheezes Cardiovascular exam: PRESENT: RRR. ABSENT: diastolic murmur, rubs, systolic murmur Pulses: PRESENT: normal dorsalis pedis pul Vascular exam: PRESENT: normal capillary refill GI/Abdominal exam: PRESENT: normal bowel sounds, soft. ABSENT: distended, guarding, mass, organolmegaly, rebound, tenderness Rectal exam: PRESENT: deferred Extremities exam: PRESENT: full ROM. ABSENT: calf tenderness, clubbing, pedal edema Neurological exam: PRESENT: alert, awake, oriented to person, oriented to place, oriented to time, oriented to situation, CN II-XII grossly intact. ABSENT: motor sensory deficit Results Laboratory Results: WBC 14.4 10^3/uL (4.0-10.5) H 02/17/19 06:49 RBC 4.36 10^6/uL (4.35-5.55) 02/17/19 06:49 Hgb 12.3 g/dL (13.5-17.0) L 02/17/19 06:49 Hct 36.3 % (37.9-51.0) L 02/17/19 06:49 MCV 83 fl (80-97) 02/17/19 06:49 MCH 28.3 pg (27.0-33.4) 02/17/19 06:49 MCHC 34.0 g/dL (32.0-36.0) 02/17/19 06:49 RDW 14.1 % (11.5-14.0) H 02/17/19 06:49 Plt Count 332 10^3/uL (150-450) 02/17/19 06:49 Lymph % (Auto) Not Reportable 02/17/19 06:49 [place] % (Auto) Not Reportable 02/17/19 06:49 Eos % (Auto) Not Reportable 02/17/19 06:49 Baso % (Auto) Not Reportable 02/17/19 06:49 Absolute Neuts (auto) Not Reportable 02/17/19 06:49 Absolute Lymphs (auto) Not Reportable 02/17/19 06:49 Absolute Monos (auto) Not Reportable 02/17/19 06:49 Absolute Eos (auto) Not Reportable 02/17/19 06:49 Absolute Basos (auto) Not Reportable 02/17/19 06:49 Total Counted 100 02/17/19 06:49 Seg Neutrophils % Not Reportable 02/17/19 06:49 Seg Neuts % (Manual) 88 % (42-78) H 02/17/19 06:49 Band Neutrophils % 1 % (3-5) L 02/16/19 04:30 Lymphocytes % (Manual) 6 % (13-45) L 02/17/19 06:49 Atypical Lymphs % 1 % (0) 02/16/19 04:30 Monocytes % (Manual) 6 % (3-13) 02/17/19 06:49 Eosinophils % (Manual) 0 % (0-6) 02/17/19 06:49 Basophils % (Manual) 0 % (0-2) 02/17/19 06:49 Abs Neuts (Manual) 12.7 10^3/uL (1.7-8.2) H 02/17/19 06:49 Abs Lymphs (Manual) 0.9 10^3/uL (0.5-4.7) 02/17/19 06:49 Abs Monocytes (Manual) 0.9 10^3/uL (0.1-1.4) 02/17/19 06:49 Absolute Eos (Manual) 0.0 10^3/uL (0.0-0.6) 02/17/19 06:49 Abs Basophils (Manual) 0.0 10^3/uL (0.0-0.2) 02/17/19 06:49 Nucleated RBCs 1 /100 WBC (0) 02/16/19 04:30 Platelet Comment ADEQUATE 02/17/19 06:49 Polychromasia SLIGHT 02/16/19 04:30 Anisocytosis SLIGHT 02/16/19 04:30 RBC Morph Comment NORMO-CYTIC/CHROMIC 02/17/19 06:49 PT 13.9 SEC (11.4-15.4) 02/17/19 06:49 INR 1.07 02/17/19 06:49 APTT 26.8 SEC (23.5-35.8) 02/17/19 06:49 Sodium 139.9 mmol/L (137-145) 02/17/19 06:49 Potassium 4.2 mmol/L (3.6-5.0) 02/17/19 06:49 Chloride 99 mmol/L (98-107) 02/17/19 06:49 Carbon Dioxide 31 mmol/L (22-30) H 02/17/19 06:49 Anion Gap 10 (5-19) 02/17/19 06:49 BUN 46 mg/dL (7-20) H 02/17/19 06:49 Creatinine 1.23 mg/dL (0.52-1.25) 02/17/19 06:49 Est GFR ( Amer) > 60 (>60) 02/17/19 06:49 Est GFR (MDRD) Non-Af 58 (>60) L 02/17/19 06:49 Glucose 139 mg/dL (75-110) H 02/17/19 06:49 Lactic Acid 1.0 mmol/L (0.7-2.1) 02/12/19 16:13 Calcium 9.6 mg/dL (8.4-10.2) 02/17/19 06:49 Phosphorus 4.7 mg/dL (2.5-4.5) H 02/16/19 04:30 Magnesium 2.2 mg/dL (1.6-2.3) 02/16/19 04:30 Total Bilirubin 0.3 mg/dL (0.2-1.3) 02/17/19 06:49 Direct Bilirubin 0.1 mg/dL (0.0-0.4) 02/17/19 06:49 Neonat Total Bilirubin Not Reportable 02/17/19 06:49 Neonat Direct Bilirubin Not Reportable 02/17/19 06:49 Neonat Indirect Bili Not Reportable 02/17/19 06:49 AST 21 U/L (17-59) 02/17/19 06:49 ALT 63 U/L (<50) 02/17/19 06:49 Alkaline Phosphatase 66 U/L (38-126) 02/17/19 06:49 Lactate Dehydrogenase 165 U/L (120-246) 02/17/19 06:49 Creatine Kinase 89 U/L (55-170) 02/13/19 12:21 CK-MB (CK-2) 2.38 ng/mL (<4.55) 02/13/19 12:21 Troponin I < 0.012 ng/mL 02/13/19 12:21 NT-Pro-B Natriuret Pep 3220 pg/mL (<125) H 02/12/19 15:36 Total Protein 6.6 g/dL (6.3-8.2) 02/17/19 06:49 Albumin 3.8 g/dL (3.5-5.0) 02/17/19 06:49 Triglycerides 42 mg/dL (<150) 02/13/19 05:54 Cholesterol 135.44 mg/dL (0-200) 02/13/19 05:54 LDL Cholesterol Direct 94 mg/dL (<100) 02/13/19 05:54 VLDL Cholesterol 8.0 mg/dL (10-31) L 02/13/19 05:54 HDL Cholesterol 39 mg/dL (>40) L 02/13/19 05:54 Lipase 69.1 U/L (23-300) 02/12/19 15:36 TSH 5.83 uIU/mL (0.47-4.68) H 02/12/19 15:36 02/12/19 02/12/19 02/12/19 15:36 15:36 15:36 CK-MB (CK-2) 4.54 Troponin I < 0.012 NT-Pro-B Natriuret Pep 3220 H 02/12/19 02/13/19 02/13/19 23:00 05:54 12:21 CK-MB (CK-2) 3.29 2.40 2.38 Troponin I < 0.012 < 0.012 < 0.012 NT-Pro-B Natriuret Pep Impressions: Chest X-Ray 02/12/19 15:07 IMPRESSION: Atelectasis or early infiltrate left lower lobe. Chest/Abdomen CTA 02/12/19 16:17 IMPRESSION: Bilateral pleural effusions and basilar subsegmental atelectasis, left greater than right.No emboli visualized in the main pulmonary arteries or the segmental branches. Chest X-Ray 02/16/19 10:02 IMPRESSION: Improve bibasilar aeration with mild residual opacities. No new airspace disease or large effusion. Stroke Is this a Stroke Patient?: No Acute Heart Failure - Is this a Heart Failure Patient?: No
== END 2019-02-19 16:52 | disposition home or self-care (01) | DRG 291 ==
LOC: ER 13:53 → EH 22:11 → 4W 02-13 → 4S 02-17 04:55
PROVIDERS: ADMIT Emergency Medicine; ATTEND Internal Medicine
PROC: 3E0234Z Introduction of Serum, Toxoid and Vaccine into Muscle, Percutaneous Approach (ICD-10-PCS; principal; 2019-02-19)
DX: I11.0 Hypertensive heart disease with heart failure (principal); J18.1 Lobar pneumonia, unspecified organism; J96.01 Acute respiratory failure with hypoxia; J44.1 Chronic obstructive pulmonary disease with (acute) exacerbation; I48.20 Chronic atrial fibrillation, unspecified; I50.33 Acute on chronic diastolic (congestive) heart failure; E78.00 Pure hypercholesterolemia, unspecified; I27.29 Other secondary pulmonary hypertension; E03.9 Hypothyroidism, unspecified; Z95.1 Presence of aortocoronary bypass graft; Z85.46 Personal history of malignant neoplasm of prostate; Z23 Encounter for immunization
CPT/HCPCS: 36415; 71045; 71046; 71275; 80048; 80053; 80061; 80069; 82550; 82553; 83605; 83615; 83690; 83735; 83880; 84443; 84484; 85025; 85610; 85730; 87040; 90686; 93005; 93010; 94640; 94799; 96365; 96366; 96368; 96375; 99291; J0360; J0456; J0692; J0696; J1160; J1940; J2920; J2930; J3475; J3490; J7060; J7512; J7614; J7620